=== PATIENT | female | born 1985 | race Caucasian/White ===

== ENCOUNTER 2018-03-04 08:15 | Emergency (ER) | payer OTHER, SELFPAY ==
[2018-03-04 08:15] VITALS: BP 140/77; PULSE 104; RESP 18; TEMP 36.6; O2SAT 98; BMI 37.4
--- NOTE | 2018-03-04 08:15 | DT_ITS ---
This patient was seen during an EMR downtime February 25, 2018 - March 04, 2018. This patient may have a combination of paper and electronic documentation or all paper documentation. All documentation is viewable within the e-chart portion of [employer] for each patient visit.
--- NOTE | 2018-03-04 08:31 | CT_ITS ---
STUDY: CT ABDOMEN AND PELVIS WITH CONTRAST REASON FOR EXAM: Female, 32 years old. N/V/D. RADIATION DOSAGE (If Supplied By Facility): CTDIvol = ( 14.86 ) mGy, DLP = ( 1039.11 ) mGycm TECHNIQUE: Transaxial images were obtained from the dome of the diaphragm to the symphysis pubis with oral contrast. 100 ml of Isovue 300 contrast was administered. Sagittal and coronal images were reconstructed. Individualized dose optimization techniques were used for this CT. COMPARISON: July 05, 2016 FINDINGS: The visualized lung bases are unremarkable. The visualized portions of the heart are within normal limits. There is decreased attenuation of the liver consistent with steatosis. Normal gallbladder and extrahepatic biliary system. Normal spleen. Normal pancreas. Normal bilateral adrenal glands. There are 2 calcifications at the inferior pole of the right kidney measuring up to 2 mm. There is no hydronephrosis. Normal left kidney. Normal visualized stomach. Normal small intestine. Normal colon. The appendix is visualized and appears normal. Normal abdominal aorta. Normal inferior vena cava. Normal retroperitoneum. Normal urinary bladder. Normal abdominal wall. Normal osseous structures. CT/Abdomen/Pelvis WITH Contrast IMPRESSION: Small nonobstructing renal stones on the right. Electronically Signed: Cristobal Car MD at 10:47 EDT Tel , Service support ,
--- NOTE | 2018-03-04 08:32 | ED.VISSUMM ---
- ER Visit Summary Date of Service: 03/04/18 Chief Complaint: Abdominal pain History of Present Illness: The patient is a 32 F who presents for abdominal pain with associated vomiting and diarrhea. Onset was while patient was sleeping during the night. She woke up with abdominal discomfort diffusely, vomited and had one large watery bowel movement. Patient has had diffuse abdominal discomfort since then, now radiating into the right lower quadrant. Patient states when the episode began she was diaphoretic and now has had chills and sweats. She has had similar symptoms in the past except no right lower quadrant pain associated with it. Patient denies any urinary symptoms. Denies . No chest pain or shortness of breath. No history of abdominal surgeries. Medical history remarkable for chronic hives and hypertension. Physical Examination: Vital signs: afebrile, hemodynamically stable, no hypoxia on room air General: well nourished, well developed, in no distress Skin: warm, dry, no rash, no pallor HEENT: normocephalic and atraumatic; PERRL, EOMI, moist mucous membranes Cardiovascular: Tachycardic rate and regular rhythm without murmurs, no peripheral edema, 2+ pulses all distal extremities Respiratory: No increased work of breathing, lungs are clear to auscultation bilaterally, no rales, rhonchi or wheezing Abdominal: Abdomen is soft, diffusely tender, especially in McBurney's point, right lower quadrant and epigastrium; with normoactive bowel sounds, no guarding or rebound, no masses MSK: Moves all extremities, no deformities, normal strength Neuro: Awake and alert, oriented ?4. No facial droop, sensation and motor function intact and symmetric Test Results: Abnormal Lab Results 03/04/18 03/04/18 03/04/18 08:50 08:50 09:00 WBC 13.2 H RBC 4.91 Hgb 13.5 Hct 40.5 MCV 82.5 MCH 27.5 MCHC 33.3 RDW 13.0 RDW Differential 39.4 Plt Count 347 MPV 9.5 Immature Gran % (Auto) 0.200 Neut % (Auto) 80.8 H Lymph % (Auto) 14.8 L [place] % (Auto) 4.0 Eos % (Auto) 0.1 Baso % (Auto) 0.1 Absolute Neuts (auto) 10.7 H Absolute Lymphs (auto) 1.94 Total Counted Not Reportable Sodium 141 Potassium 4.1 Chloride 104 Carbon Dioxide 28.0 Anion Gap 9 BUN 17 Creatinine 0.81 Est GFR (MDRD) Af Amer 104 Est GFR (MDRD) Non-Af 86 BUN/Creatinine Ratio 21.0 H Glucose 97 Calcium 9.0 Total Bilirubin 0.40 AST 13 L ALT 21 Alkaline Phosphatase 54 Total Protein 7.7 Albumin 3.7 Globulin 4.0 Albumin/Globulin Ratio 0.9 Lipase 103 Urine Color Urine Clarity Urine pH Ur Specific [place] Urine Protein Urine Glucose (UA) Urine Ketones Urine Occult Blood Urine Nitrite Urine Bilirubin Urine Urobilinogen Ur Leukocyte Esterase Urine RBC Urine WBC Ur Squamous Epith Cells Urine Bacteria Urine Mucus Urine Test Negative 03/04/18 09:00 WBC RBC Hgb Hct MCV MCH MCHC RDW RDW Differential Plt Count MPV Immature Gran % (Auto) Neut % (Auto) Lymph % (Auto) [place] % (Auto) Eos % (Auto) Baso % (Auto) Absolute Neuts (auto) Absolute Lymphs (auto) Total Counted Sodium Potassium Chloride Carbon Dioxide Anion Gap BUN Creatinine Est GFR (MDRD) Af Amer Est GFR (MDRD) Non-Af BUN/Creatinine Ratio Glucose Calcium Total Bilirubin AST ALT Alkaline Phosphatase Total Protein Albumin Globulin Albumin/Globulin Ratio Lipase Urine Color Yellow Urine Clarity Sl. Cloudy Urine pH 5.0 Ur Specific [place] 1.015 Urine Protein Negative Urine Glucose (UA) Normal Urine Ketones Negative Urine Occult Blood 10 H Urine Nitrite Negative Urine Bilirubin Negative Urine Urobilinogen Normal Ur Leukocyte Esterase Negative Urine RBC 0-5 SEEN Urine WBC 0 SEEN Ur Squamous Epith Cells 0-5 SEEN Urine Bacteria 1+ Urine Mucus 0 SEEN Urine Test Clinical Impression(s) from Imaging Studies Abdomen/Pelvis CT 03/04/18 08:31 IMPRESSION: Small nonobstructing renal stones on the right. Electronically Signed: Cristobal Car MD at 10:47 EDT Tel , Service support , Emergency Department Course and Treatment: Patient was offered and declined antiemetics or pain medications. She has had episodes of abdominal pain with nausea and diarrhea before, but she is never had right lower quadrant pain with it. Because she does have the right lower quadrant and McBurney's tenderness, CT of the abdomen and pelvis was performed. Labs showed mild leukocytosis of 13.2, which may be the marginalization secondary to vomiting. negative. No other derangements. Urine negative for infection or blood. CT scan showed no appendicitis, diverticulitis, or other acute process to explain her symptoms. Patient received IV fluids and stated she felt better after the fluids. She again declined any pain or antiemetic medications. She has an appointment this afternoon with her IMMIGRATION MANAGER and will keep this appointment. She was given return precautions. Discharged home in improved condition. Treatment Plan: [] Disposition: [] Impression: Nonspecific abdominal pain, nausea vomiting and diarrheal illness This note was generated with [employer] dictation software. It may contain incorrect words, spelling, and punctuation that were not noted in review of the chart prior to signing ED Disposition - Plan for ED Patient: Disposition: Home or Assisted Living Chief Complaint: Nausea/Vomiting/Diarrhea Instructions: ED Vomiting Diarrhea Nonspecific Ad Referrals: Guille Pavon III, MD [Primary Care Provider] - 3-5 Days if not improving Additional Instructions: Please drink plenty of fluids to stay hydrated. Keep your appointment with your IMMIGRATION MANAGER this afternoon as scheduled. Follow-up with your doctor to discuss whether your chronic hives could be related to your recurrent stomach issues. If you have any worsening of your condition or any new concerning symptoms, please return immediately to the emergency department for another evaluation.
--- NOTE | 2018-03-04 08:35 | ED.DCSUM_ITS ---
- ER Visit Summary Date of Service: 03/04/18 Chief Complaint: Abdominal pain History of Present Illness: The patient is a 32 F who presents for abdominal pain with associated vomiting and diarrhea. Onset was while patient was sleeping during the night. She woke up with abdominal discomfort diffusely, vomited and had one large watery bowel movement. Patient has had diffuse abdominal discomfort since then, now radiating into the right lower quadrant. Patient states when the episode began she was diaphoretic and now has had chills and sweats. She has had similar symptoms in the past except no right lower quadrant pain associated with it. Patient denies any urinary symptoms. Denies . No chest pain or shortness of breath. No history of abdominal surgeries. Medical history remarkable for chronic hives and hypertension. Physical Examination: Vital signs: afebrile, hemodynamically stable, no hypoxia on room air General: well nourished, well developed, in no distress Skin: warm, dry, no rash, no pallor HEENT: normocephalic and atraumatic; PERRL, EOMI, moist mucous membranes Cardiovascular: Tachycardic rate and regular rhythm without murmurs, no peripheral edema, 2+ pulses all distal extremities Respiratory: No increased work of breathing, lungs are clear to auscultation bilaterally, no rales, rhonchi or wheezing Abdominal: Abdomen is soft, diffusely tender, especially in McBurney's point, right lower quadrant and epigastrium; with normoactive bowel sounds, no guarding or rebound, no masses MSK: Moves all extremities, no deformities, normal strength Neuro: Awake and alert, oriented ?4. No facial droop, sensation and motor function intact and symmetric Test Results: Abnormal Lab Results 03/04/18 03/04/18 03/04/18 08:50 08:50 09:00 WBC 13.2 H RBC 4.91 Hgb 13.5 Hct 40.5 MCV 82.5 MCH 27.5 MCHC 33.3 RDW 13.0 RDW Differential 39.4 Plt Count 347 MPV 9.5 Immature Gran % (Auto) 0.200 Neut % (Auto) 80.8 H Lymph % (Auto) 14.8 L [place] % (Auto) 4.0 Eos % (Auto) 0.1 Baso % (Auto) 0.1 Absolute Neuts (auto) 10.7 H Absolute Lymphs (auto) 1.94 Total Counted Not Reportable Sodium 141 Potassium 4.1 Chloride 104 Carbon Dioxide 28.0 Anion Gap 9 BUN 17 Creatinine 0.81 Est GFR (MDRD) Af Amer 104 Est GFR (MDRD) Non-Af 86 BUN/Creatinine Ratio 21.0 H Glucose 97 Calcium 9.0 Total Bilirubin 0.40 AST 13 L ALT 21 Alkaline Phosphatase 54 Total Protein 7.7 Albumin 3.7 Globulin 4.0 Albumin/Globulin Ratio 0.9 Lipase 103 Urine Color Urine Clarity Urine pH Ur Specific [place] Urine Protein Urine Glucose (UA) Urine Ketones Urine Occult Blood Urine Nitrite Urine Bilirubin Urine Urobilinogen Ur Leukocyte Esterase Urine RBC Urine WBC Ur Squamous Epith Cells Urine Bacteria Urine Mucus Urine Test Negative 03/04/18 09:00 WBC RBC Hgb Hct MCV MCH MCHC RDW RDW Differential Plt Count MPV Immature Gran % (Auto) Neut % (Auto) Lymph % (Auto) [place] % (Auto) Eos % (Auto) Baso % (Auto) Absolute Neuts (auto) Absolute Lymphs (auto) Total Counted Sodium Potassium Chloride Carbon Dioxide Anion Gap BUN Creatinine Est GFR (MDRD) Af Amer Est GFR (MDRD) Non-Af BUN/Creatinine Ratio Glucose Calcium Total Bilirubin AST ALT Alkaline Phosphatase Total Protein Albumin Globulin Albumin/Globulin Ratio Lipase Urine Color Yellow Urine Clarity Sl. Cloudy Urine pH 5.0 Ur Specific [place] 1.015 Urine Protein Negative Urine Glucose (UA) Normal Urine Ketones Negative Urine Occult Blood 10 H Urine Nitrite Negative Urine Bilirubin Negative Urine Urobilinogen Normal Ur Leukocyte Esterase Negative Urine RBC 0-5 SEEN Urine WBC 0 SEEN Ur Squamous Epith Cells 0-5 SEEN Urine Bacteria 1+ Urine Mucus 0 SEEN Urine Test Clinical Impression(s) from Imaging Studies Abdomen/Pelvis CT 03/04/18 08:31 IMPRESSION: Small nonobstructing renal stones on the right. Electronically Signed: Cristobal Car MD at 10:47 EDT Tel , Service support , Emergency Department Course and Treatment: Patient was offered and declined antiemetics or pain medications. She has had episodes of abdominal pain with nausea and diarrhea before, but she is never had right lower quadrant pain with it. Because she does have the right lower quadrant and McBurney's tenderness, CT of the abdomen and pelvis was performed. Labs showed mild leukocytosis of 13.2, which may be the marginalization secondary to vomiting. negative. No other derangements. Urine negative for infection or blood. CT scan showed no appendicitis, diverticulitis, or other acute process to explain her symptoms. Patient received IV fluids and stated she felt better after the fluids. She again declined any pain or antiemetic medications. She has an appointment this afternoon with her SCENIC ARTS SUPERVISOR and will keep this appointment. She was given return precautions. Discharged home in improved condition. Treatment Plan: [] Disposition: [] Impression: Nonspecific abdominal pain, nausea vomiting and diarrheal illness This note was generated with [employer] dictation software. It may contain incorrect words, spelling, and punctuation that were not noted in review of the chart prior to signing ED Disposition - Plan for ED Patient: Disposition: Home or Assisted Living Chief Complaint: Nausea/Vomiting/Diarrhea Instructions: ED Vomiting Diarrhea Nonspecific Ad Referrals: Guille Pavon III, MD [Primary Care Provider] - 3-5 Days if not improving Additional Instructions: Please drink plenty of fluids to stay hydrated. Keep your appointment with your SCENIC ARTS SUPERVISOR this afternoon as scheduled. Follow-up with your doctor to discuss whether your chronic hives could be related to your recurrent stomach issues. If you have any worsening of your condition or any new concerning symptoms, please return immediately to the emergency department for another evaluation.
[2018-03-04 09:00] LABS: Absolute Lymphocyte Count 1.94 X10^3/ul (0.83-4.51); Absolute Neutrophil Count 10.7 X10^3/uL (2.0-7.7); Basophil# 0.01 X10^3/uL; Basophil% 0.1 % (0-1); Eosinophil# 0.01 X10^3/uL; Eosinophils% 0.1 % (0-5); Hematocrit 40.5 % (37-47); Hemoglobin 13.5 g/dl (12.0-15.0); Lymphocyte # 1.94 X10^3/ul (4.0); Lymphocyte % 14.8 % (19-41); Mean Corp Hgb Conc 33.3 g/gl (32-36); Mean Corpuscular Hgb 27.5 pg (27.0-32.0); Mean Corpuscular Volume 82.5 fL (81-99); Mean Platelet Vol. 9.5 fl (6.2-12.0); Monocyte# 0.52 X10^3/uL; Neutrophil # 10.65 X10^3/uL (2.7-7.7); Neutrophil % 80.8 % (47-70); Platelet Count 347 K/mm3 (150-450); RBC Distribution Width SD 39.4 fl (35.1-43.9); Red Blood Count 4.91 M/mm3 (4.2-5.4); White Blood Count 13.2 K/mm3 (4.4-11.0)
[2018-03-04] MEDS: 0.9% Normal Saline 1,000 ML 1000 ML IV (09:01)
[2018-03-04 09:03] LABS: POSITIVE COUNT NO; POSITIVE DIFFERENTIAL NO; POSITIVE MORPHOLOGY NO
[2018-03-04 09:06] LABS: Mucous, Urine 0 SEEN /hpf (<or=2+); White Blood Cells 0 SEEN /hpf (0-5)
[2018-03-04 09:15] LABS: Internal QC Validated? YES +Cl - CLEAR BKGD; Pregnancy, Urine Negative Negative
[2018-03-04 09:16] LABS: ALB/GLOB Ratio 0.9 RATIO (0.9-2.4); AST(SGOT) 13 U/L (15-37); Alanine Aminotransfer ALT/SGPT 21 U/L (13-56); Albumin, Serum 3.7 g/dL (3.2-5.0); Alkaline Phosphatase 54 U/L (45-117); Anion Gap 9 (5-15); BUN 17 mg/dL (7-18); Chloride 104 mmol/L (98-107); Creatinine, Serum 0.81 mg/dL (0.55-1.02); EST Glomerular Filtration Rate 86 mL/min (>60); Est Glom Filt Rate - Afr Amer 104 mL/min (>60); Glucose 97 mg/dL (74-106); Lipase 103 U/L (73-393); Potassium 4.1 mmol/L (3.5-5.1); Protein, Total 7.7 g/dL (6.4-8.2); Sodium Level 141 mmol/L (136-145)
[2018-03-04 09:22] LABS: Color, Urine Yellow (Yellow); Glucose, Dipstick Normal (Normal); Ketone-Dipstick Negative (Negative); Leukocyte Esterase-Dipstick Negative /ul (Negative); Nitrite-Dipstick Negative (Negative); Occult Blood-Urine 10 /ul (Negative); Protein-Dipstick Negative (Negative); Specific Gravity, Urine 1.015 (1.002-1.030); Urine Bilirubin Dipstick Negative (Negative); Urine Clarity Sl. Cloudy (Clear); Urine Urobilinogen Normal (Normal)
[2018-03-04 09:29] LABS: Bacteria 1+ /hpf (None Seen); Red Blood Cells-Urine 0-5 SEEN /hpf (0-5); Squamous Epithelial Cells - UA 0-5 SEEN /hpf (5-10)
--- NOTE | 2018-03-04 11:00 | DCINST.ED_ITS ---
ED Disposition - Plan for ED Patient: Disposition: Home or Assisted Living Chief Complaint: Nausea/Vomiting/Diarrhea Instructions: ED Vomiting Diarrhea Nonspecific Ad Referrals: Guille Pavon III, MD [Primary Care Provider] - 3-5 Days if not improving Additional Instructions: Please drink plenty of fluids to stay hydrated. Keep your appointment with your VP BIOLOGY this afternoon as scheduled. Follow-up with your doctor to discuss whether your chronic hives could be related to your recurrent stomach issues. If you have any worsening of your condition or any new concerning symptoms, please return immediately to the emergency department for another evaluation.
[2018-03-04 11:23] VITALS: BP 128/74; PULSE 61; RESP 15; O2SAT 98
== END 2018-03-04 11:24 | disposition home or self-care (01) ==
PROVIDERS: Emergency Provider Emergency Medicine; Family Provider Family Medicine; PCP Family Medicine
DX: R10.9 Unspecified abdominal pain (principal); R11.2 Nausea with vomiting, unspecified; R19.7 Diarrhea, unspecified; I10 Essential (primary) hypertension; L50.8 Other urticaria; Z79.899 Other long term (current) drug therapy
CPT/HCPCS: 74177; 80053; 81001; 81025; 83690; 85025; 96360; 96361; 99283; J7030; Q9967; A4216

== ENCOUNTER → 2018-03-04 19:11 | Outpatient (CLI) | payer OTHER, SELFPAY ==
--- NOTE | 2018-03-04 19:11 | DT_ITS ---
This patient was seen during an EMR downtime February 25, 2018 - March 04, 2018. This patient may have a combination of paper and electronic documentation or all paper documentation. All documentation is viewable within the e-chart portion of [employer] for each patient visit.
[2018-03-12 15:03] LABS: HPV Reflexed? NOT INDICATED
== END ==
PROVIDERS: Family Provider Family Medicine; PCP Family Medicine; Visit Provider Obstetrics & Gynecology
DX: Z12.4 Encounter for screening for malignant neoplasm of cervix (principal)
CPT/HCPCS: 88175; G0145

== ENCOUNTER 2019-03-30 14:39 | Observation (INO) | payer OTHER, SELFPAY ==
[2019-03-30 14:39] VITALS: BP 150/65; PULSE 136; RESP 23; TEMP 36.6; O2SAT 99; BMI 37.5
--- NOTE | 2019-03-30 15:16 | ED.DCSUM_ITS ---
History of Present Illness Chief Complaint: Back Detail of Chief Complaint: Back pain Informant: Patient, Family Onset: - - 9 weeks ago Quality: Sharp and stabbing Location: Left lower back Current Severity: Severe Maximum Severity: Severe Worsened by: Movement Narrative: Patient presents with 9-week history of pain to the left lower back and sciatic area. She denies any known injury at the onset. Pain does shoot down the left leg. It is worse with movement. She has been in physical therapy for the past 6 weeks. She was seen at urgent care last week where she was given a prednisone taper and Flexeril. Her PCP saw her this week and gave her gabapentin. Patient states she scheduled to have an MRI this coming week. She presents today due to continued worsening pain. She denies urinary symptoms. - Past Medical History (1) Hypertension Status: Chronic Past Medical History - Allergies and Home Meds Allergies/Adverse Reactions: Allergies clindamycin Allergy (Verified 03/30/19 14:43) Hives ketorolac [From Toradol] Adverse Reaction (Verified 03/30/19 14:43) Hives ondansetron [From Zofran (as hydrochloride)] Adverse Reaction (Verified 03/30/19 14:43) Hives Primary Care Physician: Guille Pavon III, MD [Primary Care Provider] - Prior records reviewed: Yes Past Medical History: - - Reviewed Lives: Spouse/ Significant Other Smoking Status: Former smoker Review of Systems General: Denies: Chills, Fever Cardiovascular: Denies: Chest pain Respiratory: Denies: Dyspnea, Cough Gastrointestinal: Denies: Abdominal pain, Nausea, Vomiting, Diarrhea Genitourinary: Denies: Dysuria, Hematuria, Frequency Musculoskeletal: Reports: Back pain, Extremity Pain Neurological: Reports: Parasthesia. Denies: Headache, Weakness Physical Exam Vital Signs/Narrative: Vital Signs Temp Pulse Resp BP Pulse Ox 03/30/19 14:39 97.9 F 136 H 23 H 150/65 H 99 Inital Vital Signs reviewed: Yes General: Well nourished, Well developed ENT: Moist mucous membranes Cardiovascular: Tachycardia Respiratory: No distress, CTA bilaterally Abdomen: Soft, Nontender. Negative for: Pulsatile mass Back: - - Tenderness palpation over the left SI joint and left sciatic notch. No tenderness in the lumbar region. Skin: Normal color, No rash Neurological: Alert, Oriented x3, - - Patient has good strength and sensation on testing. Strong distal pulses are noted. Psychological: - - Anxious Diagnostic/Tx/Re-eval - Medical Decision Making Patient is gotten 2 doses of Dilaudid along with p.o. oxycodone. At this time she is still unable to get up and ambulate. We will admit her for intractable pain. ED Disposition - Plan for ED Patient: Disposition: Acute Care [facility] Diagnosis: Sciatica Referrals: Guille Pavon III, MD [Primary Care Provider] -
[2019-03-30] MEDS: proMETHazine 25 MG/ML Syringe 6.25 MG IV (15:46)
[2019-03-30] MEDS: 0.9% Normal Saline 1,000 ML 150 ML IV (15:46)
[2019-03-30] MEDS: HYDROmorphone 1 MG/ML Syringe 0.5 MG IV (15:47)
[2019-03-30] MEDS: HYDROmorphone 0.5 MG/0.5 ML SYRINGE IV (16:33)
[2019-03-30 16:34] VITALS: BP 130/77; PULSE 72; RESP 18; O2SAT 97
[2019-03-30 18:00] VITALS: RESP 20
[2019-03-30] MEDS: oxyCODONE 5 MG Tablet 10 MG PO ×2 (18:17→23:51)
--- NOTE | 2019-03-30 20:47 | PCM.HP.STD ---
Problem List (1) Intractable low back pain Status: Acute (2) Abdominal pain Status: Resolved History of Present Illness Date of Admission: 03/30/19 Chief Complaint: back pain The patient is a 33 year old F with a significant history of hypertension who presented to the emergency department with 9 weeks of progressively worsening excruciating lower back pain. Her pain is located to upper side of her left buttocks close to her gluteal cleft. It radiates upwards to her lower spine and to to her left lower extremities. The pain is sharp. However she has numbness to her left toes. She went to see a chiropractor but later on stopped and began to work with physical therapy. Her PCP prescribed prednisone and Flexeril and later added gabapentin. Outpatient MRI was scheduled. However because patient continued to have excruciating pain so she came to emergency department. At the ED, patient was given oxycodone and Dilaudid however she continued to have pain. She denies any bowel symptoms. She reports mild decrease in urinary frequency that she attributes to her not drinking enough fluids. Past Medical History Past Medical History (Chronic Problems): Chronic Problems Hypertension (Chronic) Allergies clindamycin Allergy (Verified 03/30/19 14:43) Hives ketorolac [From Toradol] Adverse Reaction (Verified 03/30/19 14:43) Hives ondansetron [From Zofran (as hydrochloride)] Adverse Reaction (Verified 03/30/19 14:43) Hives Home Medications: Ambulatory Orders Medication Instructions Recorded Lisinopril [Zestril] 5 mg PO DAILY 07/05/16 Flexeril 5 mg PO TID PRN PRN 03/30/19 Gabapentin [Neurontin] 100 mg PO BID 03/30/19 Prednisone 10 mg PO DAILY 03/30/19 Surgical History: tonsillectomy, - - D&C; mole removal from around her ears. Lives: Spouse/ Significant Other Smoking Status: Never smoker Alcohol: None - *Family History Paternal History Items: Heart Disease Maternal History Items: - - Patient did not know Review of Systems Constitutional: Reports: Anorexia. Denies: Chills, Fever, Weight Change HEENT: Denies: Head Aches, Sinus Congestion, Sinus Drainage Cardiovascular: Denies: Chest Pain, Palpitations Respiratory: Denies: Cough, Shortness of breath at rest, Sputum production Gastrointestinal: Denies: Abdominal Pain, Nausea, Vomiting Genitourinary: Denies: Dysuria Musculoskeletal: Reports: Back Pain, Leg Pain - Left Skin: Denies: Rash, Wounds Neurological: Denies: Numbness, Tingling, Focal weakness Psychiatric: Denies: Anxiety, Depression, Homicidal Ideations, Suicidal Ideations Hematologic/ Lymphatic: Denies: Easy Bruising, Easy Bleeding VTE Information - Inpt Only VTE Present on Admission: No VTE Mechan Device Prophylaxis: None VTE Pharm Prophylaxis ordered?: Yes Patient Problems: Active and Suspected Problems Sciatica (Acute) Intractable low back pain (Acute) - Physical Exam General: Alert, Oriented x3, Cooperative, - - Patient in acute distress secondary to pain HEENT: Atraumatic, PERRLA, EOMI, Normocephalic Neck: Supple, No JVD, Negative Carotid Bruits Lungs: Clear to auscultation, Normal air movement, Tachypneic Cardiovascular: Regular rate, No murmurs Abdomen: Bowel Sounds Present, Soft, Non Tender Extremities: No edema, Tenderness - Left gluteal area Skin: No rashes, No breakdown Musculoskeletal: - - Straight line test positive to the left; negative to the right Neurological: Cranial nerves II-XII grossly intact Psych/Mental Status: Normal Affect, Appropriate Vital Signs Temp Pulse Resp BP Pulse Ox 97.9 F 72 18 130/77 H 97 03/30/19 14:39 03/30/19 16:34 03/30/19 16:34 03/30/19 16:34 03/30/19 16:34 Oxygen Delivery Method Room Air Weight: 102.512 kg Body Mass Index (BMI) 37.5 Assessment/Plan All Active Problems Sciatica (Acute) Intractable low back pain (Acute) Abdominal pain (Resolved) The patient is a 33 year old F with a significant history of hypertension who presented to the emergency department with 9 weeks of progressively worsening excruciating lower back pain radiating to her left lower extremities concerning for intractable lower back pain with sciatica. Intractable lower back pain with sciatica Pain control with Decadron 20 mg IV x1. Then schedule Decadron 4 mg every 6 hours. PRN oxycodone and IV Dilaudid as needed ordered Continue home Flexeril; and gabapentin. Hold home prednisone. Patient is allergic to Zofran. Antiemetics with Compazine ordered. Bowel protocol in the setting of initiating narcotics. Will get MRI of her lumbar area. Hypertension On presentation her blood pressure was not within goal Lisinopril continued Trend blood pressure and adjust blood pressure medication. DVT prophylaxis Subcutaneous Lovenox Code Visit OBSV E&M: 74211 Initial observation care L3
[2019-03-30 20:54] VITALS: RESP 22
--- NOTE | 2019-03-30 21:08 | ED.RN ---
DR PADILLA MADE AWARE OF PT'S REQUEST FOR PAIN MEDICATIONS
[2019-03-30 22:09] VITALS: BMI 38.3; BMI 38.4
[2019-03-30 22:33] VITALS: BP 129/74; PULSE 82; RESP 18; TEMP 36.2; O2SAT 97
[2019-03-30] MEDS: HYDROmorphone 1 MG/ML Syringe IV (22:41)
[2019-03-30] MEDS: dexAMETHasone 20 MG/5 ML Vial IV (23:23)
[2019-03-30 23:35] LABS: Hematocrit 38.7 % (37-47); Mean Corp Hgb Conc 33.6 g/gl (32-36); Mean Corpuscular Hgb 27.8 pg (27.0-32.0); Mean Corpuscular Volume 82.7 fL (81-99); Mean Platelet Vol. 9.2 fl (6.2-12.0); Platelet Count 382 K/mm3 (150-450); RBC Distribution Width CV 13.6 % (11.6-14.6); Red Blood Count 4.68 M/mm3 (4.2-5.4); White Blood Count 14.5 K/mm3 (4.4-11.0)
[2019-03-30 23:39] LABS: Scan Indicated on CBC? Y/N NO
[2019-03-31 00:02] LABS: Anion Gap 9 (5-15); BUN 14 mg/dL (7-18); BUN/Creat Ratio 20.7 RATIO (10-20); Calcium,Total 8.6 mg/dL (8.5-10.1); Chloride 105 mmol/L (98-107); Creatinine, Serum 0.68 mg/dL (0.55-1.02); EST Glomerular Filtration Rate 106 mL/min (>60); Est Glom Filt Rate - Afr Amer 128 mL/min (>60); Glucose 95 mg/dL (74-106); Potassium 3.5 mmol/L (3.5-5.1); Sodium Level 142 mmol/L (136-145)
[2019-03-31 03:37] VITALS: BP 129/85; PULSE 84; RESP 18; TEMP 36.2; O2SAT 97
[2019-03-31] MEDS: 0.9% NaCl Peripheral Flush Adult/Peds IV ×4 (03:39→11:55)
[2019-03-31] MEDS: HYDROmorphone 1 MG/ML Syringe IV ×5 (03:39→20:17)
[2019-03-31] MEDS: dexAMETHasone 4 MG/ML Vial IV ×3 (06:14→18:42)
[2019-03-31 08:00] VITALS: BP 126/82; PULSE 83; RESP 18; TEMP 36.6; O2SAT 96
--- NOTE | 2019-03-31 08:00 | MRI_ITS ---
STUDY: MRI LUMBAR SPINE WITHOUT CONTRAST REASON FOR EXAM: Female, 33 years old. Left-sided low back pain. Leg pain and numbness. TECHNIQUE: Standardized fat and water weighted pulse sequences were obtained in the sagittal and axial planes. COMPARISON: None. FINDINGS: T12-L1: Normal endplates. Normal disc height, hydration and morphology. Normal bilateral facet joints. Normal central canal and bilateral lateral recesses. Normal bilateral intervertebral neural foramina. Lumbar straightening. No significant scoliosis. Conus medullaris terminates normally at the L2 level. L1-2: Normal endplates. Normal disc height, hydration and morphology. Normal bilateral facet joints. Normal central canal and bilateral lateral recesses. Normal bilateral intervertebral neural foramina. L2-3: Normal endplates. Normal disc height, hydration and morphology. Normal bilateral facet joints. Normal central canal and bilateral lateral recesses. Normal bilateral intervertebral neural foramina. L3-4: Normal endplates. Normal disc height, hydration and morphology. Normal bilateral facet joints. Normal central canal and bilateral lateral recesses. Normal bilateral intervertebral neural foramina. L4-5: Normal endplates. Left paracentral caudal disc extrusion (sagittal image 5 series 2) with extruded disc material measuring approximately 17 mm x 17 mm x 6 mm. Mild central canal narrowing. Bilateral lateral recess narrowing with impingement on the left. Normal bilateral facet joints. Normal central canal and bilateral lateral recesses. Normal bilateral intervertebral neural foramina. L5-S1: Normal endplates. Disc bulge, annular fissure and minimal caudal extension, with mild central narrowing. Normal bilateral facet joints. Normal bilateral lateral recesses. Normal bilateral intervertebral neural foramina. Normal visualized sacral ala. Normal visualized paraspinous soft tissue structures. MRI/Spine Lumbar (Routine) IMPRESSION: L4-5 large left paracentral caudal disc extrusion with mild central canal narrowing L5-S1 disc bulge, annular fissure and minimal caudal extension with mild central canal narrowing L4-5 bilateral lateral recess narrowing with impingement of the left descending L5 nerve root Lumbar straightening Electronically Signed: Jose M Winters DO at 9:06 EDT Tel , Service support ,
--- NOTE | 2019-03-31 08:08 | NURSING ---
pt transported down to MRI via bed at this time. medicated for pain prior to test.
[2019-03-31] MEDS: Senna/Docusate Sodium 1 Tablet 2 TABLET PO (10:08)
[2019-03-31] MEDS: Lisinopril 5 MG Tablet PO (10:08)
[2019-03-31] MEDS: Gabapentin 100 MG Capsule PO ×2 (10:08→17:09)
[2019-03-31] MEDS: cycloBENZAPRine HCl 5 MG TABLET PO (12:34)
[2019-03-31] MEDS: oxyCODONE 5 MG Tablet 10 MG PO (12:34)
[2019-03-31 13:20] VITALS: BP 129/79; PULSE 80; RESP 16; TEMP 36.7; O2SAT 98
--- NOTE | 2019-03-31 13:37 | EKG12_ITS ---
Test Reason : CP ROUTINE Blood Pressure : / mmHG Vent. Rate : 078 BPM Atrial Rate : 078 BPM P-R Int : 140 ms QRS Dur : 070 ms QT Int : 382 ms P-R-T Axes : 047 042 026 degrees QTc Int : 435 ms Normal sinus rhythm Normal ECG When compared with ECG of 02-JUL-2015 17:16, No significant change was found Confirmed by CHANCE STAFFORD, JUNE ([id number]), assistant film editor ABRAM DELANEY ([id number]) on 04/01/2019 2:08:49 PM Referred By: Pranay Platt Confirmed By:JUNE FLETCHER MD
[2019-03-31 16:08] LABS: Internal QC Validated? YES +Cl - CLEAR BKGD; Pregnancy, Urine Negative Negative
[2019-03-31 17:00] VITALS: BP 125/74; PULSE 80; RESP 18; TEMP 36.8; O2SAT 97
[2019-03-31] MEDS: Acetaminophen 325 MG Tablet 650 MG PO (17:09)
--- NOTE | 2019-03-31 18:02 | PCM.PROGNOTE ---
Patient Problems: Active and Suspected Problems Sciatica (Acute) Intractable low back pain (Acute) Subjective: Patient was seen and examined today, she still having pain down the back of her left leg and in her left buttocks and left SI joint area. Patient does not complain of any weakness, she states that when she tries to stand on her left leg it hurts too much and she is unable to stand or walk. Patient's MRI showed an L4-L5 large left paracentral caudal disc extrusion with mild central canal narrowing, I talked her about this today and I called pain management to see if they would see the patient for a possible epidural injection-they will see the patient and probably do this injection tomorrow. Patient had an episode of chest discomfort which she described as pressure-like in nature centered in the precordial region radiating into the mid back today which lasted approximately 5 minutes, patient has no history of any cardiac issues in the past, EKG was performed that showed a normal sinus rhythm without evidence of ischemic changes. - Physical Exam General: Alert, Oriented x3, Cooperative HEENT: Atraumatic, PERRLA, EOMI, Normocephalic Oral: Moist Mucosa Neck: Supple, No JVD, Negative Carotid Bruits, Trachea Midline, Thyroid Normal Size and Texture Lungs: Clear to auscultation, Normal air movement, No rhonchi, No wheeze, No rales, Diminished, Rales Cardiovascular: Regular rate, Regular Rhythm, Normal S1, Normal S2, No murmurs, No Ectopic Activity Abdomen: Bowel Sounds Present, Soft, Non Tender, Non-Distended, No hernias noted Extremities: No clubbing, No cyanosis, No edema, Capillary Refill Less than 3 Seconds Skin: No rashes, No breakdown Musculoskeletal: No Tenderness to Palpation of Joints or Extremities Neurological: Cranial nerves II-XII grossly intact, Neuro grossly intact, Motor Exam 5/5 strength throughout, Sensory exam intact to light touch and pain, Coordination normal Psych/Mental Status: Normal Affect, Appropriate, Alert and oriented to time, place, person, mood and affect Vital Signs Temp Pulse Resp BP Pulse Ox 98.2 F 80 18 125/74 H 97 03/31/19 17:00 03/31/19 17:00 03/31/19 17:00 03/31/19 17:00 03/31/19 17:00 Oxygen Delivery Method Room Air Weight: 104.6 kg Body Mass Index (BMI) 38.3 Intake and Output for Last 24 Hours 03/29/19 03/30/19 03/31/19 23:59 23:59 23:59 Intake Total 490 / 490 Balance 490 / 490 Laboratory Tests Past 24 Hrs 03/30/19 03/30/19 03/31/19 22:08 22:08 15:30 WBC 14.5 H RBC 4.68 Hgb 13.0 Hct 38.7 MCV 82.7 MCH 27.8 MCHC 33.6 RDW 13.6 RDW Differential 41.0 Plt Count 382 MPV 9.2 Sodium 142 Potassium 3.5 Chloride 105 Carbon Dioxide 28.0 Anion Gap 9 BUN 14 Creatinine 0.68 Estim Creat Clear Calc 104.90 Est GFR (MDRD) Af Amer 128 Est GFR (MDRD) Non-Af 106 BUN/Creatinine Ratio 20.7 H Glucose 95 Calcium 8.6 Urine Test Negative Medical Necessity - Tobacco Use Smoking Status: Never smoker Assessment/Plan All Active Problems Sciatica (Acute) Intractable low back pain (Acute) Abdominal pain (Resolved) #1 acute sciatica left leg secondary to L4-L5 left paracentral caudal disc extrusion-patient will remain on IV Decadron and be seen by pain management for possible epidural injection. I do not feel the patient has significant weakness in her leg and I do not believe she needs to be referred out for surgery at this time. #2 hypertension #3 musculoskeletal chest pain Code Visit OBSV E&M: 14587 Subsequent observation care L3
--- NOTE | 2019-03-31 18:45 | NURSING ---
Dr Vasquez on unit speaking with patient. plans for epidural on 04/01 with steroid injection. he requests that pt will follow-up with him in the office in 2 weeks.
[2019-03-31 19:57] VITALS: BP 150/88; PULSE 89; RESP 16; TEMP 37; O2SAT 94
[2019-04-01] VITALS (12 sets, daily range): BP systolic 127–147; BP diastolic 68–140; PULSE 72–91; RESP 16; TEMP 36.4–36.9; O2SAT 94–98; BMI 38.3
[2019-04-01] MEDS: HYDROmorphone 1 MG/ML Syringe IV ×6 (00:18→19:03)
[2019-04-01] MEDS: dexAMETHasone 4 MG/ML Vial IV ×4 (00:19→17:27)
[2019-04-01] MEDS: Acetaminophen 325 MG Tablet 650 MG PO ×2 (02:16→23:14)
[2019-04-01] MEDS: oxyCODONE 5 MG Tablet 10 MG PO ×2 (02:17→23:14)
--- NOTE | 2019-04-01 12:37 | CHAPLAIN ---
Type of Pastoral Visit _x__ Initial Visit ___ Follow-up Visit ___ On-call Visit ___ General Patient Visit ___ Spiritual Assessment ___ Family Conference ___ Bereavement ___ Rapid Response ___ Code Blue ___ Other (describe below) Pastoral Care Referral From _x__ Patient ___ Family ___ Nurse ___ Physician ___ Residential Building Inspector ___ Manufacturer Representative ___ Other (describe below) Sacrament/Intervention _x__ Active listening ___ Anointing ___ Restoration ___ Bereavement ___ Communion ___ Radha exploration ___ ___ Life review _x__ Prayer ___ Reconciliation ___ Sacrament of Sick _x__ Supportive presence ___ Wedding ___ Other (describe below) Pastoral Comments
--- NOTE | 2019-04-01 13:37 | CASEMGMT ---
According to patient insurance [facility] [employer] P[employer], In [facility]: [facility], Nate Allen, [facility], , [facility], [facility], [place], STEFANI, [place]. Bulmaro Gonzalez, TANJACM
--- NOTE | 2019-04-01 13:43 | NURSING ---
report called to ac
--- NOTE | 2019-04-01 14:30 | RAD_ITS ---
STUDY: X-RAY - LUMBAR SPINE REASON FOR EXAM: Female, 33 years old. Low back pain. TECHNIQUE: Single coned-down intraoperative view(s) of the lumbar spine was obtained. COMPARISON: None FINDINGS: Intraoperative imaging provided for epidural block. RAD/Spine 1 View Any Level IMPRESSION: Intraoperative imaging provided for epidural block. Electronically Signed: Shay Short, at 9:31 EDT , Service support ,
[2019-04-01] MEDS: Triamcinolone Acetonide 40 MG/ML Vial (15:44)
[2019-04-01] MEDS: Lisinopril 5 MG Tablet PO (17:00)
[2019-04-01] MEDS: Senna/Docusate Sodium 1 Tablet 2 TABLET PO (17:01)
[2019-04-01] MEDS: Gabapentin 100 MG Capsule PO (17:01)
[2019-04-01] MEDS: 0.9% NaCl Peripheral Flush Adult/Peds IV (17:28)
--- NOTE | 2019-04-01 19:53 | PN_ITS ---
Patient Problems: Active and Suspected Problems Sciatica (Acute) Intractable low back pain (Acute) Subjective: Seen and examined today, she underwent an epidural injection today by pain management, she is having significant pain late this afternoon and was given Dilaudid for pain control. I will reassess the patient's pain tomorrow and if she remains in a great deal of pain from her sciatica, she will have to be transferred to another hospital for surgery. I asked her what hospital she would prefer and she is leaning toward [facility] because of the [facility]. - Physical Exam General: Alert, Oriented x3, Cooperative, Well developed, - - Patient is an moderate distress due to left leg sciatica HEENT: Atraumatic, PERRLA, EOMI, Normocephalic Oral: Moist Mucosa Neck: Supple, Trachea Midline, Thyroid Normal Size and Texture Lungs: Clear to auscultation, Normal air movement, No rhonchi, No wheeze, No rales Cardiovascular: Regular rate, Regular Rhythm, Normal S1, Normal S2, No murmurs Abdomen: Bowel Sounds Present, Soft, Non Tender, Non-Distended, Obese Extremities: No clubbing, No cyanosis, No edema, Capillary Refill Less than 3 Seconds Skin: No rashes, No breakdown Musculoskeletal: No Tenderness to Palpation of Joints or Extremities Neurological: Cranial nerves II-XII grossly intact, Neuro grossly intact, Sensory exam intact to light touch and pain, Coordination normal Psych/Mental Status: Normal Affect, Appropriate, Alert and oriented to time, place, person, mood and affect Vital Signs Temp Pulse Resp BP Pulse Ox 98.2 F 74 16 146/78 H 98 04/01/19 18:54 04/01/19 18:54 04/01/19 18:54 04/01/19 18:54 04/01/19 18:54 Oxygen Delivery Method Room Air Weight: 104.6 kg Body Mass Index (BMI) 38.3 Intake and Output for Last 24 Hours 03/30/19 03/31/19 04/01/19 23:59 23:59 23:59 Intake Total 893 / 1377 1060 / 1060 Balance 893 / 1377 1060 / 1060 Medical Necessity - Tobacco Use Smoking Status: Never smoker Assessment/Plan All Active Problems Sciatica (Acute) Intractable low back pain (Acute) Abdominal pain (Resolved) #1 acute sciatica left leg secondary to L4-L5 left paracentral caudal disc extrusion-status post epidural injection, patient will be reassessed tomorrow for degree of her sciatica. She may need to be transferred to another hospital for further care #2 hypertension #3 musculoskeletal chest pain-resolved Code Visit Inpatient E&M: 02215 Subs Hosp L2
[2019-04-01] MEDS: Gabapentin 300 MG Capsule PO (22:06)
[2019-04-02] MEDS: dexAMETHasone 4 MG/ML Vial IV ×4 (00:18→17:59)
[2019-04-02] MEDS: 0.9% NaCl Peripheral Flush Adult/Peds IV ×6 (00:19→22:43)
[2019-04-02 00:23] VITALS: BP 116/72; PULSE 76; RESP 16; TEMP 37.1; O2SAT 97
[2019-04-02] MEDS: HYDROmorphone 1 MG/ML Syringe IV ×4 (05:03→20:09)
[2019-04-02] MEDS: Gabapentin 300 MG Capsule PO ×3 (05:13→22:43)
[2019-04-02 05:22] VITALS: BP 122/78; PULSE 75; RESP 18; TEMP 36.6; O2SAT 96
[2019-04-02 08:18] VITALS: O2SAT 95
[2019-04-02 08:47] VITALS: BP 140/74; PULSE 85; RESP 18; TEMP 36.6; O2SAT 99
[2019-04-02] MEDS: Lisinopril 5 MG Tablet PO (08:54)
[2019-04-02] MEDS: Senna/Docusate Sodium 1 Tablet 2 TABLET PO (08:54)
[2019-04-02] MEDS: Acetaminophen 325 MG Tablet 650 MG PO ×2 (13:08→22:42)
[2019-04-02] MEDS: oxyCODONE 5 MG Tablet 10 MG PO ×2 (13:08→22:43)
[2019-04-02 15:09] VITALS: BP 141/82; PULSE 88; RESP 16; TEMP 37.2; O2SAT 98
--- NOTE | 2019-04-02 15:12 | CHAPLAIN ---
Type of Pastoral Visit ___ Initial Visit _x__ Follow-up Visit ___ On-call Visit ___ General Patient Visit ___ Spiritual Assessment ___ Family Conference ___ Bereavement ___ Rapid Response ___ Code Blue ___ Other (describe below) Pastoral Care Referral From _x__ Patient ___ Family ___ Nurse ___ Physician ___ Capper Machine Operator ___ Switch Tender ___ Other (describe below) Sacrament/Intervention _x__ Active listening ___ Anointing ___ Temple ___ Bereavement ___ Communion ___ Radha exploration ___ _x__ Life review _x__ Prayer ___ Reconciliation ___ Sacrament of Sick _x__ Supportive presence ___ Wedding ___ Other (describe below) Pastoral Comments
[2019-04-02 20:04] VITALS: BP 143/87; PULSE 76; RESP 18; TEMP 36.6; O2SAT 98
[2019-04-03] MEDS: 0.9% NaCl Peripheral Flush Adult/Peds IV ×3 (00:58→06:44)
[2019-04-03] MEDS: dexAMETHasone 4 MG/ML Vial IV ×2 (00:58→06:44)
[2019-04-03 01:03] VITALS: BP 135/83; PULSE 72; RESP 16; TEMP 36.7; O2SAT 94
[2019-04-03] MEDS: HYDROmorphone 1 MG/ML Syringe IV ×3 (04:10→19:26)
--- NOTE | 2019-04-03 06:33 | NURSING ---
Per Sallie AWAD, [facility] called & they do not yet have a bed available for this pt.
[2019-04-03 06:41] VITALS: BP 134/97; PULSE 68; RESP 18; TEMP 37; O2SAT 99
[2019-04-03] MEDS: Gabapentin 300 MG Capsule PO ×3 (06:44→21:48)
--- NOTE | 2019-04-03 07:52 | PCM.PROGNOTE ---
Patient Problems: Active and Suspected Problems Sciatica (Acute) Intractable low back pain (Acute) Subjective: The date of this dictation is 04/02/2019: Patient was seen and examined today, initially earlier this morning she stated that her pain was a 3 out of 10 but later on in the day, she attempted to get up with physical therapy and had severe pain in her left leg. I discussed sending her to a tertiary care center for further treatment, she agreed and after some time came up with [facility]. I contacted [facility] via the transfer line and they accepted the patient. Patient has no complaints of any fever, chills, chest pain, or shortness of breath. She has no complaints of actual weakness in the lower extremities. - Physical Exam General: Alert, Oriented x3, Cooperative, No apparent distress, Well developed HEENT: Atraumatic, PERRLA, EOMI, Normocephalic Oral: Moist Mucosa Neck: Supple, Trachea Midline, Thyroid Normal Size and Texture Lungs: Clear to auscultation, Normal air movement, No rhonchi, No wheeze, No rales Cardiovascular: Regular rate, Regular Rhythm, Normal S1, Normal S2, No murmurs Abdomen: Bowel Sounds Present, Soft, Non Tender, Non-Distended, Obese Extremities: No edema, Capillary Refill Less than 3 Seconds Skin: No rashes, No breakdown Neurological: Cranial nerves II-XII grossly intact, Neuro grossly intact, Motor Exam 5/5 strength throughout, Sensory exam intact to light touch and pain, Coordination normal Psych/Mental Status: Normal Affect, Appropriate, Alert and oriented to time, place, person, mood and affect Vital Signs Temp Pulse Resp BP Pulse Ox 98.6 F 68 18 134/97 H 99 04/03/19 06:41 04/03/19 06:41 04/03/19 06:41 04/03/19 06:41 04/03/19 06:41 Oxygen Delivery Method Room Air Weight: 104.6 kg Body Mass Index (BMI) 38.3 Intake and Output for Last 24 Hours 04/01/19 04/02/19 04/03/19 23:59 23:59 23:59 Intake Total 1060 / 1060 2499 / 3074 875 / 875 Output Total 1800 / 1800 700 / 700 Balance 1060 / 1060 699 / 1274 175 / 175 Medical Necessity - Tobacco Use Smoking Status: Never smoker Assessment/Plan All Active Problems Sciatica (Acute) Intractable low back pain (Acute) Abdominal pain (Resolved) #1 acute sciatica left leg secondary to L4-L5 left paracentral caudal disc extrusion-status post epidural injection, again patient is having significant amounts of pain in her left leg, I think it would be crum to transfer her to a tertiary care center where she can be evaluated by neurosurgery or orthopedic surgery. [facility] has accepted the patient. #2 hypertension #3 musculoskeletal chest pain-resolved Code Visit Inpatient E&M: 42238 Subs Hosp L2
[2019-04-03] MEDS: oxyCODONE 5 MG Tablet 10 MG PO ×3 (09:08→22:08)
[2019-04-03] MEDS: Acetaminophen 325 MG Tablet 650 MG PO (09:09)
[2019-04-03] MEDS: Lisinopril 5 MG Tablet PO (09:10)
[2019-04-03] MEDS: Senna/Docusate Sodium 1 Tablet 2 TABLET PO (09:10)
[2019-04-03 10:35] VITALS: O2SAT 95
--- NOTE | 2019-04-03 10:50 | NURSING ---
[facility] called to check on bed status, no bed available at this time per coordinator.
[2019-04-03 11:09] VITALS: BP 142/88; PULSE 93; RESP 18; TEMP 37.2; O2SAT 100
--- NOTE | 2019-04-03 14:22 | NURSING ---
[facility] CALLED FOR AN UPDATE - NO BED AVAILABLE AT THIS TIME BUT WILL KEEP IN TOUCH
[2019-04-03 15:04] VITALS: BP 148/80; PULSE 92; RESP 18; TEMP 36.9; O2SAT 100
--- NOTE | 2019-04-03 17:18 | PN_ITS ---
Patient Problems: Active and Suspected Problems Sciatica (Acute) Intractable low back pain (Acute) Subjective: Patient was seen and examined today, she was not able to be moved to [facility] due to lack of bed availability, at this time, we are still awaiting confirmation of the bed at [facility]. Patient continues to complain of severe pain on her left leg and inability to stand and walk without severe pain. - Physical Exam General: Alert, Oriented x3, Cooperative, Well developed HEENT: Atraumatic, PERRLA, EOMI, Normocephalic Oral: Moist Mucosa Neck: Supple, Trachea Midline, Thyroid Normal Size and Texture Lungs: Clear to auscultation, Normal air movement, No rhonchi, No wheeze, No rales Cardiovascular: Regular rate, Regular Rhythm, Normal S1, Normal S2, No murmurs, No Ectopic Activity Abdomen: Bowel Sounds Present, Soft, Non Tender, Non-Distended Extremities: No clubbing, No cyanosis, No edema, Capillary Refill Less than 3 Seconds Skin: No rashes, No breakdown Musculoskeletal: No Tenderness to Palpation of Joints or Extremities Neurological: Cranial nerves II-XII grossly intact, Neuro grossly intact, Sensory exam intact to light touch and pain, Coordination normal Psych/Mental Status: Normal Affect, Appropriate, Alert and oriented to time, place, person, mood and affect Vital Signs Temp Pulse Resp BP Pulse Ox 98.4 F 92 18 148/80 H 100 04/03/19 15:04 04/03/19 15:04 04/03/19 15:04 04/03/19 15:04 04/03/19 15:04 Oxygen Delivery Method Room Air Weight: 104.6 kg Body Mass Index (BMI) 38.3 Intake and Output for Last 24 Hours 04/01/19 04/02/19 04/03/19 23:59 23:59 23:59 Intake Total 1060 / 1060 2499 / 3074 1275 / 1275 Output Total 1800 / 1800 1200 / 1200 Balance 1060 / 1060 699 / 1274 75 / 75 Medical Necessity - Tobacco Use Smoking Status: Never smoker Assessment/Plan All Active Problems Sciatica (Acute) Intractable low back pain (Acute) Abdominal pain (Resolved) #1 acute sciatica left leg secondary to L4-L5 left paracentral caudal disc extrusion-status post epidural injection-postop day #2, again patient is having significant amounts of pain in her left leg, I think it would be crum to transfer her to a tertiary care center where she can be evaluated by neurosurgery or orthopedic surgery. [facility] has accepted the patient, we are c urrently awaiting a bed. #2 hypertension #3 musculoskeletal chest pain-resolved Code Visit Inpatient E&M: 59730 Subs Hosp L2
[2019-04-03 21:40] VITALS: BP 136/93; PULSE 66; RESP 16; TEMP 36.6; O2SAT 96
--- NOTE | 2019-04-03 21:47 | NURSING ---
Received a call from [facility] that they have a bed for this pt. [facility], [facility] [address], [address]th Floor, Room 970. Report can be called to [phone].
--- NOTE | 2019-04-03 22:09 | NURSING ---
called report to TANJA Llamas at [facility]
--- NOTE | 2019-04-03 22:36 | NURSING ---
[facility] is here to transport pt to [facility], [address] [place].
--- NOTE | 2019-04-04 08:40 | PCM.DC.SUM ---
Discharge Date and Diagnosis Date of Admission: 03/30/19 Date of Discharge: 04/03/19 - Primary Discharge Diagnosis #1 acute sciatica left leg secondary to L4-L5 left paracentral caudal disc extrusion #2 hypertension #3 musculoskeletal chest pain-resolved - Secondary Discharge Diagnosis Chronic Problems Hypertension (Chronic) Hospital Course and Treatment Operations: None Procedures: - - Epidural injection Summary of Care Provided: The patient is a 33 year old F who was seen in the emergency room at [facility] with chief complaint of severe left leg pain. Patient had been undergoing physical therapy for left lower leg pain but had been unable to progress due to the severity of the left leg pain. She complained of pain radiating down the back of her left leg, it was worse when she was standing or sitting. Patient was placed in the observation status on [employer] 3, MRI was obtained of the lumbar spine, it showed a L4-L5 left paracentral caudal disc extrusion. Patient was seen by PT and OT, she was seen by pain management who performed an epidural injection, patient was also given IV Decadron while she was in the hospital. Despite all these interventions, patient had severe pain which debilitated her and she was not able to walk or stand (or sit) for any length of time due to severe left leg pain from sciatica. Conversations were carried out with the patient, she desired to go to [facility] for further care and possible surgery (? Microdiscectomy). On 04/03/2019, patient was seen and examined: On examination she appeared in good health and spirits. Vital signs as documented. Skin warm and dry and without overt rashes. Neck without JVD. Lungs clear. Heart exam notable for regular rhythm, normal sounds and absence of murmurs, rubs or gallops. Abdomen unremarkable and without evidence of organomegaly, masses, or abdominal aortic enlargement. Extremities nonedematous. Neuro: Cranial nerves II through XII are grossly intact, no focal motor deficits were noted, sensation to light touch and pinprick is intact. Patient was unable to stand, sit, or walk due to severe left buttocks and left leg pain. Psych: Patient is alert and oriented x3, she does not appear anxious or depressed On 04/03/2019, patient was seen and examined and felt to be in stable condition for transfer to [facility] for further care. - Physical Exam Vital Signs Temp Pulse Resp BP Pulse Ox 98 F 66 16 136/93 H 96 04/03/19 21:40 04/03/19 21:40 04/03/19 21:40 04/03/19 21:40 04/03/19 21:40 Oxygen Delivery Method Room Air Weight: 104.6 kg Body Mass Index (BMI) 38.3 Intake and Output for Last 24 Hours 04/02/19 04/03/19 04/04/19 23:59 23:59 23:59 Intake Total 2499 / 3074 2245 / 2245 Output Total 1800 / 1800 1200 / 1200 Balance 699 / 1274 1045 / 1045 Home Medications: Medications to take at Discharge Lisinopril [Zestril] 5 mg PO DAILY 07/05/16 Flexeril 5 mg PO TID PRN PRN 03/30/19 Gabapentin [Neurontin] 100 mg PO BID 03/30/19 Prednisone 10 mg PO DAILY 03/30/19 Primary Care Physician: Guille Pavon III, MD [Primary Care Provider] - Disposition: Acute care Hospital Minutes spent on discharge:: 32 Patient Condition:: Stable Medical Necessity - Tobacco Use Smoking Status: Never smoker Meaningful Use Info Meaningful Use Diagnoses (Choose all that apply): None applicable Code Visit OBSV E&M: 12674 Observation care discharge
== END 2019-04-03 22:40 | disposition short-term general hospital (02) ==
LOC: ED 15:31 → MS3 21:11
PROVIDERS: Anesthesiology; Anesthesiology Pain Medicine; Admitting Provider Hospitalist; Emergency Provider Emergency Medicine; Family Provider Family Medicine; PCP Family Medicine; Referring Provider Hospitalist; Visit Provider Internal Medicine
PROC: 3E0S3BZ Introduction of Anesthetic Agent into Epidural Space, Percutaneous Approach (ICD-10-PCS; CPT 62322; principal; 2019-04-01 14:30)
DX: M51.16 Intervertebral disc disorders with radiculopathy, lumbar region (principal); I10 Essential (primary) hypertension; Z79.899 Other long term (current) drug therapy; Z79.52 Long term (current) use of systemic steroids; Z87.891 Personal history of nicotine dependence; R00.0 Tachycardia, unspecified; R20.0 Anesthesia of skin; R07.89 Other chest pain
CPT/HCPCS: 62323; 36415; 64483; 72020; 72148; 80048; 81025; 85027; 93005; 96374; 96375; 96376; 97162; 97530; 99218; 99283; J7030; J7040; A4216; G0378

== ENCOUNTER → 2019-06-16 09:45 | Outpatient (CLI) | payer OTHER, SELFPAY ==
[2019-04-01 08:51] VITALS: BMI 38.3
[2019-06-16 10:58] LABS: Follicle Stimulating Hormone 1.8 mIU/mL; Luteinizing Hormone 3.4 mIU/mL; Prolactin 5.5 ng/mL
== END ==
PROVIDERS: Visit Provider Obstetrics & Gynecology
DX: N91.2 Amenorrhea, unspecified (principal)
CPT/HCPCS: 36415; 83001; 83002; 84146

== ENCOUNTER 2019-08-01 16:30 | Outpatient (RCR) | payer OTHER, SELFPAY ==
[2019-04-01 08:51] VITALS: BMI 38.3
--- NOTE | 2019-05-22 13:57 | HP.PTEVAL_ITS ---
Patient's Visit Information DADA ANGULO is a 33 year old F referred to Physical Therapy by Orin Presley MD with a diagnosis of S/P LUMBAR DISCECTOMY. Date of Evaluation: 05/22/19 Physical Therapist: Iman Kinsey PT, Cert MDT - Visit Plan Frequency: 2-3x /Week Duration: 4-6 Weeks Plan: POSTURE CORRECTION/STRENGTHENING, INSTRUCTION IN APPROPRIATE BODY MECHANICS AND ACTIVITY MODIFICATIONS. DLS STARTING WITH A NEUTRAL SPINE PROGRESSING ROM TOLERATED. SAJAN LE ROM, STRETCHING AND STRENGTHENING. HEP INSTRUCTION. *MINIMAL LIFTING > 10 LBS, BENDING, PUSHING, PULLING, TWISTING AND OVER HEAD EXTENSION FOR 4-6 WEEKS. 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 RELEASED TO GO BACK TO WORK FULL DUTY TODAY. STARTED BACK TO WORK 1/2 DAYS X 2 WEEKS AND TOLERATED WELL. Disability: NO. Present symptoms: LEFT CALF YURI HORSES (STARTED AFTER SURGERY). SAJAN LOW BACK PAIN. NO RIGHT LE SX'S. OCCASSIONAL LLE PAIN - PINCH IN LEFT BUTTOCK AND LEFT LATERAL CALF. NO FOOT OR TOE SX'S EXCEPT NUMBNESS LEFT FIRST TWO TOES (NUMBNESS IS IMPROVING). Present since: JANUARY 2019. Pain Scale: WORST 3/10, LEAST 1/10. Currently: /10. Commenced as a result of: NO APPARENT REASON. WOKE UP WITH IT ONE MORING. Symptoms at onset: LEFT BUTTOCK PAIN - COULDN'T MOVE. GRADUALLY WENT DOWN LEG. Worse: PROLONGED SITTING, PRLONGED STANDING, BENDING, TRAVELING, TRYING TO GET LEFT SOCK ON. Better: ICE, CHANGE OF POSITION. Disturbed sleep: NO. Previous history/Previous treatment: PATIENT REPORTS SHE TRIED PHYSICAL THERAPY PRIOR TO SURGERY AND THE LAST TWO WEEKS WERE HORRIBLE - EVERYTHING WE DID MADE IT WORSE. ALSO TRIED TWO ROUNDS OF PREDNISONE. DID NERVE BLOCK BEFORE SURGERY BUT DIDN'T HELP. WENT TO ED IN MARCH AND WAS ADMITTED TO [facility] FOR 5 DAY THEN TRANSFERRED TO [place] FOR 5 DAYS WHERE SHE HAD THE BACK SURGERY BY DR. PRESLEY ON APRIL 08 2019 (CURRENTLY ABOUT 6 WEEKS PO). NO PT SINCE THE SURGERY. PATIENT REPORTS SHE HAD A BAD EXPERIENCE IN PHYSICAL THERAPY AT [facility] AND SHE WILL NOT GO BACK. HISTORY OF LBP TREATED BY CHIROPRACTOR OFF AND ON FOR ABOUT 15 YEARS. Coughing/sneezing/strain ing: NEGATIVE. Gait: PRETTY NORMAL - MAYBE A LITTLE SLOWER. Difficulty initiating urinatin: NO. Accidents: NO. Unexplained weight loss: NO. Imaging: LUMBAR X-RAYS AND MRI PRIOR TO SURGERY SHOWING HNP L45. ALSO BULGE L5S1 - SEE [facility] EMR. PMH: HTN. PLOF (Prior Level of Function): UNLIMITED. - Objective Sitting/Standing Posture: POOR. Lordosis: REDUCED. Lateral shift: NO. Relevant shift: N/A. Active Correction of posture: BETTER. Other Observations: INDEP GAIT INTO PT WITH NO GROSS DEVIATIONS NOTED. PATIENT IS CAUSIOUS BUT INDEP WITH ALL TRANSFERS. INDEP SIT TO STAND WITHOUT UE ASSIST. Motor deficit: MMT: RIGHT HIP 4/5, LEFT HIP 3+/5. RIGHT KNEE 5/5, LEFT KNEE 4-/5. RIGHT ANKLE 5/5, LEFT ANKLE 4/5, RIGHT EHL 5/5, LEFT EHL 3+/5. Sensory deficit: DECREASED LIGHT TOUCH SENSATION OF LEFT LATERAL THIGH, LATERAL LEG AND FOOT COMPARED TO RIGHT. ROM deficit: TIGHT SAJAN HS'S LEFT > RIGHT AND LEFT GASTROC SOLEUS COMPLEX. Reflexes: NT. Dural Signs: POSITIVE LLE. Lumbar mvmt loss: flex - MOD. ext - YOEL. R SG - MOD. L SG - MOD. PATIENT MOVES VERY CAUSIOUSLY AND IS LIMITED ALL PLANES. SHE FEELS PULLING IN HER RIGHT CALF WITH FORWARD FLEXION AND PINCHING IN THE RIGHT LOW BACK WITH BACK EXT TESTING. SHE FEELS LEFT ANTERIOR HIP PULLING WITH RIGHT SG TESTING AN NO PAIN BUT LIMITATION WITH LEFT SG TESTING. Core strength: POOR. Palpation: INCISION LOOKS GOOD WITHOUT ANY SIGNS OF INFECTION BUT THERE MIGHT THERE IS A LITTLE BUMP AT THE BOTTOM LEFT OF THE INCISION AND DR. PRESLEY TOLD HER IT MIGHT BE AN UNDISOLVED STITCH. - Goals Goal 1:: DECREASE C/O LOW BACK AND LLE SX'S (MONITOR CURRENT INTERMITTENT RIGHT HIP PAIN TOO). Goal Time Frame: 4-6 Weeks Goal 2:: IMPROVE PERSONAL CARE, LIFTING, SITTING, STANDING, TRAVEL, WORK AND HOMEMAKING FUNCTION Goal Time Frame: 4-6 Weeks Goal 3:: INSTRUCT IN PROPHYLAXIS Goal Time Frame: 4-6 Weeks - Rehabilitation Potential Rehabilitation Potential: Good - Anticipated Interventions Patient/Client Instruction: Educate patient on: Condition, Plan of Care, Risk Factors, Benefits of Fitness Program For the Purpose of:: To improve self management Therapeutic Exercise to Include: Strength training, Body mechanics, Postural training, Flexibilty training, Dynamic Lumbar Stabilization For the Purpose of:: To improve muscle performance and motor function, To increase tolerance to activity/condition/position, To improve ability of physical actions for home/community/work/leisure Thank you for the opportunity to evaluate your patient. For Medicare and Medicare HMO plans, please review the plan of care and approve it. It will need to be FAXED BACK to us at [phone] for Medicare purposes. For Medicare only, by signing this I certify the plan of care. Please let me know if there are questions or concerns regarding this plan of care. Physician Signature: Date:
--- NOTE | 2019-06-23 17:16 | HP.PTREVAL ---
Orin Presley MD, It has been my pleasure to treat DADA ANGULO over the last 13 visits for S/P LUMBAR DISCECTOMY. Please see the progress note below for an update on the physical therapy plan of care! Subjective: PATIENT REPORTS HER LLE ROM IS BETTER AND SHE CAN PUT HER OWN SOCK ON NOW. SHE REPORTS SHE CAN GET IN AND OUT OF BED A LOT EASIER, HAS MORE LLE STRENGTH AND SHE IS SLEEPING BETTER. FOLLOW UP PENDING WITH DR. PRESLEY Jun. STILL FEELS LIKE SHE MIGHT HAVE AN UNDISOLVED STITCH POKING HER. BACK TO WORK [employer] FULL DUTY AND DOING OK. NO LONGER HAVING YURI HORSES IN LEFT LE. EVERY ONCE IN AWHILE A LITTLE BIT OF LATERAL CALF PAIN LEFT ABOVE ANKLE. NOT NOTICING ANY MORE TOE NUMBNESS. HAVING SOME NEW RIGHT FOOT PAIN UPON RISING IN THE MORNING BUT IT GOES AWAY THE REST OF THE DAY. Objective/Function: PATIENT IS MAKING GOOD PROGRESS TOWARD ALL PT GOALS AND IS A GOOD CANDIDATE TO CONTINUE AQUATIC THERAPY BASED ON PROGRESS MADE AND ROOM FOR MORE IMPROVEMENT. PATIENT IS AGREEABLE. UPON EXAM TODAY: PATIENT DEMONSTRATES. INDEP GAIT INTO PT WITH NO GROSS DEVIATIONS NOTED. PATIENT IS LESS CAUSIOUS AND INDEP WITH ALL TRANSFERS. SHE DEMONSTRATES INCREASED FREEDOM OF MOTION WITH MVMT WITH LESS GURADING NOW. INDEP SIT TO STAND WITHOUT UE ASSIST. Motor deficit: MMT: RIGHT HIP 4/5, LEFT HIP 4-/5. RIGHT KNEE 5/5, LEFT KNEE 5/5. RIGHT ANKLE 5/5, LEFT ANKLE 5/5 EXCEPT EVERSION 4/5, RIGHT EHL 5/5, LEFT EHL 4-/5. Sensory deficit: DECREASED LIGHT TOUCH SENSATION OF LEFT LATERAL LEG AND FOOT COMPARED TO RIGHT. MEDIAL FOOT TINGLING WITH TESTING. ROM deficit: TIGHT SAJAN HS'S LEFT > RIGHT AND LEFT GASTROC SOLEUS COMPLEX. Reflexes: NT. Dural Signs: POSITIVE LLE. Lumbar mvmt loss: flex - MOD. ext - MOD. R SG - MOD. L SG - MOD. SHE FEELS PULLING IN HER LEFT CALF WITH FORWARD FLEXION AND PINCHING IN THE RIGHT LOW BACK WITH BACK EXT TESTING. SG TESTING SAJAN DOES NOT INCREASE OR PRODUCE ANY SX'S. Core strength: POOR. Palpation: INCISION LOOKS GOOD WITHOUT ANY SIGNS OF INFECTION BUT THERE IS STILL A LITTLE BUMP AT THE BOTTOM LEFT OF THE INCISION AND DR. PRESLEY TOLD HER IT MIGHT BE AN UNDISOLVED STITCH. LUMBAR OSWESTRY HAS IMPROVED FROM 12 TO 6. Plan Plan: CONT AQUATIC THERAPY WORKING TOWARD SAME GOALS. DECRASE TO TWO TIMES A WEEK. ENCOURAGED PATIENT TO START INDEP POOL EX 1-2 TIMES A WEEK ALSO. PATIENT IS AGREEABLE TO THIS POC Goals Goal 1:: DECREASE C/O LOW BACK AND LLE SX'S (MONITOR CURRENT INTERMITTENT RIGHT HIP PAIN TOO). Goal Time Frame: 4-6 Weeks Goal Progress: Progressing Goal 2:: IMPROVE PERSONAL CARE, LIFTING, SITTING, STANDING, TRAVEL, WORK AND HOMEMAKING FUNCTION Goal Time Frame: 4-6 Weeks Goal Progress: Progressing Goal 3:: INSTRUCT IN PROPHYLAXIS Goal Time Frame: 4-6 Weeks Goal Progress: Progressing Anticipated Interventions Patient/Client Instruction: Educate patient on: Condition, Plan of Care, Risk Factors, Benefits of Fitness Program For the Purpose of:: To improve self management Therapeutic Exercise to Include: Strength training, Body mechanics, Postural training, Flexibilty training, Dynamic Lumbar Stabilization For the Purpose of:: To improve muscle performance and motor function, To increase tolerance to activity/condition/position, To improve ability of physical actions for home/community/work/leisure Please do not hesitate to contact me at [phone] by phone or if you have questions or concerns regarding this new plan of care! Sincerely, Iman Kinsey PT, Cert MDT
--- NOTE | 2019-08-01 16:52 | HP.PTDCSUM ---
HP - PT D/C Summary It has been my pleasure to treat DADA ANGULO under orders from Orin Presley MD, for the diagnosis of S/P LUMBAR DISCECTOMY for a total of 20 visit(s). Discharge Date: 08/01/19 Please see the following information for a summary of their discharge status. - Subjective Subjective: PATIENT REPORTS HER FOLLOW UP WITH DR. PRESLEY WENT WELL. FOLLOW UP PENDING OCT 14 2108. PATIENT REPORTS SHE DOES NOT HAVING ANY RESTRICTIONS. PATIENT REPORTS THE STRENGTH IN HER LEGS IS GETTING BETTER. SHE ALSO REPORTS IMPROVED BALANCE. - Pain Lumbar Spine Pain Intensity (Out of 10): 0 LLE Pain Intensity (Out of 10): 0 - Overall Improvement % Improvement: 90 - Objective Objective/Function: ALL GOALS MET. Motor deficit: MMT: SAJAN LE'S 5/5 WITH MMT'ING. Sensory deficit: DECREASED LIGHT TOUCH SENSATION OF LEFT LATERAL LEG AND FOOT COMPARED TO RIGHT. Dural Signs: NEGATIVE SAJAN LLE. Lumbar mvmt loss: flex - MOD. ext - MOD. R SG - MIN. L SG - MIN. PATIENT DENIES PAIN WITH LUMBAR ROM TESTING ALL PLANES. Core strength: POOR - Goals Goal 1:: DECREASE C/O LOW BACK AND LLE SX'S (MONITOR CURRENT INTERMITTENT RIGHT HIP PAIN TOO). Goal Progress: Progressing Goal 2:: IMPROVE PERSONAL CARE, LIFTING, SITTING, STANDING, TRAVEL, WORK AND HOMEMAKING FUNCTION Goal Progress: Progressing Goal 3:: INSTRUCT IN PROPHYLAXIS Goal Progress: Progressing - Plan Plan: D/C TO INDEP POOL PROGRAM. PATIENT IS AGREEABLE. - D/C Information If there are questions or concerns regarding this patient's physical therapy, please feel free to call me at [phone]. Thank you for the referral of this patient. Sincerely, Iman Kinsey, PT, Cert MDT
== END 2019-08-01 19:00 | disposition home or self-care (01) ==
LOC: PT 16:30
PROVIDERS: Family Provider Family Medicine; PCP Family Medicine; Referring Provider Orthopaedic Surgery; Visit Provider Orthopaedic Surgery
DX: Z98.890 Other specified postprocedural states (principal)
CPT/HCPCS: 97110; 97113; 97162; 97530

== ENCOUNTER → 2020-01-07 11:38 | Outpatient (CLI) | payer OTHER, SELFPAY ==
[2019-04-01 08:51] VITALS: BMI 38.3
== END ==
PROVIDERS: PCP Family Medicine; Referring Provider Otolaryngology; Visit Provider Otolaryngology
DX: J18.9 Pneumonia, unspecified organism (principal); R05 Cough
CPT/HCPCS: 87070; 87077; 87205

== ENCOUNTER → 2020-02-12 15:57 | Outpatient (CLI) | payer OTHER, SELFPAY ==
[2019-04-01 08:51] VITALS: BMI 38.3
[2020-02-18 03:06] LABS: Age Gdln ACOG Testing 30-65 (.)
[2020-02-18 06:49] LABS: HPV APTIMA, High Risk Negative (Negative); HPV Reflexed? NOT INDICATED
== END ==
PROVIDERS: PCP Family Medicine; Visit Provider Obstetrics & Gynecology
DX: Z12.4 Encounter for screening for malignant neoplasm of cervix (principal)
CPT/HCPCS: 88175; G0145

== ENCOUNTER → 2020-02-27 07:08 | Outpatient (CLI) | payer OTHER, SELFPAY ==
[2019-04-01 08:51] VITALS: BMI 38.3
--- NOTE | 2020-02-27 07:22 | BI_ITS ---
MAMMOGRAPHY - BILATERAL SCREENING REASON FOR EXAM: Female, 34 years old. Routine annual screening examination. PERTINENT HISTORY: Grandmother with breast cancer. Aunt with breast cancer. TECHNIQUE: Digital bilateral breast cathy (3D mammographic acquisition) in the CC and MLO projections. 2-D mediolateral oblique (MLO) and craniocaudad (CC) views of both breasts were obtained. CAD: Full Field Digital Mammography with Computer Added Detection was performed. COMPARISON: None. Baseline examination. FINDINGS: Breast Composition: The breasts are heterogeneously dense, which may obscure small masses. There are no dominant masses or suspicious calcifications. No other significant abnormalities are identified. BI/SCREEN MAMM (CAD) W/CATHY BILAT IMPRESSION: Negative screening mammogram. Yearly followup mammogram recommended. (A) ASSESSMENT CATEGORY: BIRADS Category 1: Negative. A letter regarding these results will be sent to the patient by the facility within 30 days. Approximately 10% of breast cancers are not detected by mammography. A normal mammogram should not delay biopsy of a clinically suspicious abnormality. [id number] Electronically Signed: Shay Short, at 9:04 EDT , Service support ,
== END ==
LOC: OPBI 07:21 → LABSPEC 16:12
PROVIDERS: PCP Family Medicine; Referring Provider Obstetrics & Gynecology; Visit Provider Otolaryngology
DX: J32.9 Chronic sinusitis, unspecified (principal); Z12.31 Encounter for screening mammogram for malignant neoplasm of breast
CPT/HCPCS: 77063; 77067; 87070; 87205

== ENCOUNTER → 2020-03-30 07:03 | Outpatient (CLI) | payer OTHER, SELFPAY ==
[2019-04-01 08:51] VITALS: BMI 38.3
--- NOTE | 2020-03-30 07:08 | CT_ITS ---
STUDY: CT MAXILLOFACIAL SINUSES REASON FOR EXAM: Female, 34 years old. SINUSITIS X 3 MONTHS RADIATION DOSAGE (If Supplied By Facility): CTDIvol = ( 33.06 ) mGy, DLP = ( 846.25 ) mGycm TECHNIQUE: The patient was scanned in a multi detector CT scanner. High resolution axial imaging was performed without the administration of intravenous contrast material. Sagittal and coronal images were reconstructed. Individualized dose optimization techniques were used for this CT. COMPARISON: None. FINDINGS: FRONTAL SINUSES: Normal aeration, without mucosal inflammatory disease. ETHMOIDAL SINUSES: Normal aeration, without mucosal inflammatory disease. MAXILLARY SINUSES: Normal aeration, without mucosal inflammatory disease. SPHENOIDAL SINUSES: Normal aeration, without mucosal inflammatory disease. There is patency of the bilateral maxillary infundibuli with normal uncinate processes, ethmoid bullae, and hiatus semilunaris. Normal bilateral middle turbinates. There is hypertrophy of the left inferior nasal turbinate. There is a left sided nasal septal deviation, but without a nasal septal spur. There is patency of the bilateral nasal airways. The visualized osseous structures are normal. The visualized bilateral orbital contents are normal. CT/Sinus/Facial Bone IMPRESSION: Hypertrophy of the inferior nasal turbinate on the left. Nasal septal deviation towards the left side of the midline. Electronically Signed: Shay Short, at 9:59 EDT , Service support ,
== END ==
PROVIDERS: PCP Family Medicine; Referring Provider Otolaryngology; Visit Provider Otolaryngology
DX: J32.9 Chronic sinusitis, unspecified (principal)
CPT/HCPCS: 70486

== ENCOUNTER 2020-05-12 16:00 | Outpatient (RCR) | payer OTHER, SELFPAY ==
[2019-04-01 08:51] VITALS: BMI 38.3
--- NOTE | 2020-03-24 11:25 | HP.PTEVAL ---
Patient's Visit Information DADA ANGULO is a 34 year old F referred to Physical Therapy by JORDY DUMONT with a diagnosis of S/P LUMBAR LAMINECTOMY ,LEG PAIN LEFT. Date of Evaluation: 03/23/20 Physical Therapist: Vivek Kaplan, PT, Cert MDT, OCS - Visit Plan Frequency: 2x /Week Duration: 4 Weeks Plan: PT INTERVENTIONS DLS ,LE FLEXABILITY LEFT ANR,MAGGI EX'S ,POSTURAL EX'S,MODALTIES FOR PAIN - Subjective This 34 y/o female presents to physical therapy lumbar pain with leg symptoms. Patient intially had Lumbar disectomy L4-5 April 082018 done Janelle at [facility]. Patient had prior PT Aquatic therapy whiched helped. Most recently,patient developed 4 weeks noticed more symptoms in left lumbar >right with lateral lateral leg. Seen PAC did x-rays showed DDD and narrowing. Patient has not specific reason or predisposing factors. Aggraveting factors sleeping feelis spasms in lower leg.,siting extending . Alleviating factors walking and standing. Coughing/sneezing -. Bowel/bladder -. No meds. Pateint pain affects ADL's ,job demnads and housework tasks. SOCIAL: 2children. 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 GAIT: reciprocal pattern. NEURO: denies parathesia/tingling,reflexes L3-4,L4-5,L5-S1. SYMMTRIES: align. FLEXABLITY: hams min/mod tight left ,right WFL. MMT: quads 4-/5 left ,hams 4/5 left,right 4/5,hip flexion 4/5,ankle 4/5. LUMBAR ROM: flexion WFL,extension min loss,side glides WFL - Special Tests L/S Slump test left side: Negative L/S Slump test right side: Positive L/S Left Straight Leg Raise: Negative L/S Right Straight Leg Raise: Negative Lumbar Standing: Flexion - Mechanical Response: No effect Lumbar Standing: Flexion - Symptoms During Testing: No effect Lumbar Standing: Flexion - Symptoms After Testing: No effect Lumbar Standing: Extension - Mechanical Response: No effect Lumbar Standing: Extension - Symptoms During Testing: No effect Lumbar Standing: Extension - Symptoms After Testing: No effect Comments:: TIGHT Lumbar Standing: Right Side Glides - Mechanical Response: No effect Lumbar Standing: Right Side [place] - Symptoms During Testing: No effect Lumbar Standing: Right Side [place] - Symptoms After Testing: No effect Lumbar Standing: Left Side [place] - Mechanical Response: No effect Lumbar Standing: Left Side [place] - Symptoms During Testing: No effect Lumbar Standing: Left Side [place] - Symptoms After Testing: No effect Lumbar Lying: Flexion - Mechanical Response: No effect Lumbar Lying: Flexion - Symptoms During Testing: No effect Lumbar Lying: Flexion - Symptoms After Testing: No effect Lumbar Lying: Extension - Mechanical Response: Increases motion Lumbar Lying: Extension - Symptoms During Testing: Decreases Lumbar Lying: Extension - Symptoms After Testing: Better - Goals Goal 1:: Patient to be I with HEP. Goal Time Frame: 4-6 Weeks Goal 2:: Patient to improve posture /body mechanics Goal Time Frame: 4-6 Weeks Goal 3:: Patient improve lumbar ROM for function of recovery Goal Time Frame: 4-6 Weeks Goal 4:: Patient to decrease episode of lumbar and leg symptoms by 75% or > to improve function QOL. Goal Time Frame: 4-6 Weeks Goal 5:: Patient improve back owestry score by 5 points or > to improve function and QOL. Goal Time Frame: 4-6 Weeks - Rehabilitation Potential Physical Therapy Diagnosis: This patient has h/o undergoing lumbar laminectomy last year April 08 from L4-5 lumbar extrusion. Currently developed some symptoms in leg and spasms at night left calf ,better with walking and standing ,worse extended sitting and driving. Patient has decrease ROM ,+ ANR mild left leg thus benifit from skilled PT. Rehabilitation Potential: Good - Anticipated Interventions Patient/Client Instruction: Educate patient on: Condition, Plan of Care For the Purpose of:: To decrease pain, To increase ROM, To improve muscle performance and motor function, To improve ability to perform ADL's, To increase tolerance to activity/condition/position, To improve ability of physical actions for home/community/work/leisure, To improve health of tissue, To decrease soft tissue restriction, To increase flexibility/ROM, To improve ability to perform tasks related to life management Therapeutic Exercise to Include: Strength training, Body mechanics, Postural training, Flexibilty training, Dynamic Lumbar Stabilization, Maggi Exercises For the Purpose of:: To decrease pain, To increase ROM, To improve muscle performance and motor function, To increase tolerance to activity/condition/position, To improve ability of physical actions for home/community/work/leisure, To improve health of tissue, To decrease soft tissue restriction, To increase flexibility/ROM, To improve ability to perform tasks related to life management TENS: Yes IF ES: Yes Cryotherapy (ice pack, ice massage): Yes Thermo therapy (hot pack): Yes For the Purpose of:: To decrease pain, To increase ROM, To improve nutrient delivery to tissue, To increase oxygenation perfusion, To improve health of tissue, To decrease soft tissue restriction Thank you for the opportunity to evaluate your patient. For Medicare and Medicare HMO plans, please review the plan of care and approve it. It will need to be FAXED BACK to us at [phone] for Medicare purposes. For Medicare only, by signing this I certify the plan of care. Please let me know if there are questions or concerns regarding this plan of care. Physician Signature: Date:
--- NOTE | 2020-05-12 16:28 | HP.PTDCSUM ---
It has been my pleasure to treat DADA ANGULO referred by JORDY DUMONT, with the diagnosis of S/P LUMBAR LAMINECTOMY ,LEG PAIN LEFT for a total of 15 visit(s). Discharge Date: 05/12/20 Please see the following information for a summary of their discharge status. Subjective: Doing well .. no pain. Left Back Pain Intensity (Out of 10): 0 Left Lower Extremity Pain Intensity (Out of 10): 0 % Improvement: 95 Objective/Function: POSTURE: mild foward posture. GAIT: reciprocal pattern. MMT: 5/5. LUMBAR ROM: WFL FLEXION,EXTESNIO MIn LOSS ,SIDE GLIDES WFL. MMT: 4/5 Goal 1:: Patient to be I with HEP. Goal Progress: Goal Met Goal 2:: Patient to improve posture /body mechanics Goal Progress: Goal Met Goal 3:: Patient improve lumbar ROM for function of recovery Goal Progress: Goal Met Goal 4:: Patient to decrease episode of lumbar and leg symptoms by 75% or > to improve function QOL. Goal Progress: Goal Met Goal 5:: Patient improve back owestry score by 5 points or > to improve function and QOL. Goal Progress: Goal Met Plan: D/C TO HEP Discharge Comments: HEP If there are questions or concerns regarding this patient's physical therapy, please feel free to call me at [phone]. Thank you for the referral of this patient. Sincerely, Vivek Kaplan, PT, Cert MDT, OCS
== END 2020-05-12 19:00 | disposition home or self-care (01) ==
LOC: PT 16:00
PROVIDERS: PCP Family Medicine
DX: M79.605 Pain in left leg (principal); Z98.890 Other specified postprocedural states
CPT/HCPCS: 97014; 97110; 97162; 97530; G0283

== ENCOUNTER 2021-02-11 10:25 | Observation (INO) | payer OTHER, SELFPAY ==
[2019-04-01 08:51] VITALS: BMI 38.3
[2021-02-11] VITALS (10 sets, daily range): BP systolic 123–178; BP diastolic 78–101; PULSE 75–109; RESP 12–18; TEMP 36.2–37.4; O2SAT 97–100; BMI 40.1; BMI 39.1
--- NOTE | 2021-02-11 10:42 | EKG12_ITS ---
Test Reason : CP Blood Pressure : / mmHG Vent. Rate : 099 BPM Atrial Rate : 099 BPM P-R Int : 178 ms QRS Dur : 076 ms QT Int : 352 ms P-R-T Axes : 055 027 022 degrees QTc Int : 451 ms Normal sinus rhythm Normal ECG Confirmed by MOHINDER STAFFORD, JUDE ([id number]), video news editor AMADOU TAI ([id number]) on 02/15/2021 10:10:47 A M Referred By: RANDY Confirmed By:REJI VINES MD
[2021-02-11] MEDS: Aspirin 81 MG TAB.CHEW 324 MG PO (10:49)
--- NOTE | 2021-02-11 10:50 | RAD_ITS ---
STUDY: X-RAY CHEST REASON FOR EXAM: Female, 35 years old. Substernal chest pain TECHNIQUE: Single AP portable view of the chest. COMPARISON: 2014 FINDINGS: EKG leads overlie the chest The lungs are clear and expanded. There is no demonstrated pleural abnormality. Normal size heart. Normal mediastinum and tacho. Normal visualized pulmonary arteries. Normal visualized aortic arch and descending thoracic aorta. Normal visualized thoracic spine. Normal visualized ribs, clavicles, and shoulders. There is no demonstrated abnormality of the visualized soft tissue structures of the upper abdomen. RAD/Chest 1 View (Portable) IMPRESSION: Normal x-ray examination of the chest. Electronically Signed: Eligio Horn MD at 11:26 EDT , Service support ,
--- NOTE | 2021-02-11 11:00 | ED.VIS.CHEST ---
HPI History of Present Illness Chief Complaint: Chest Pain Informant: patient Narrative Narrative: 35-year-old female presenting with chest pain. Patient states this started this morning while at rest. She complains of midsternal chest pain radiating to her left arm. She has associated lightheadedness and diaphoresis. She denies shortness of breath. Denies nausea or vomiting. She states at worst it was 5 out of 10, currently 3 out of 10. CVD Risk Factors: Positive for Hypertension PE Risk Factors: Negative for Recent Travel/Surgery, Recent Immobilization, Prior DVT or PE, Cancer and OCP + Smoking + >/=35 PFSH [facility] Medical History (Updated 02/11/21 @ 11:[address] Deepa Simental MD) Back ache Hypertension Home Medications lisinopril 5 mg PO DAILY 07/05/16 [History Last Taken 03/30/19 09:00] Allergy/AdvReac Type Severity Reaction Status Date / Time clindamycin Allergy Hives Verified 02/11/21 11:37 ketorolac [From Toradol] Allergy Hives Verified 02/11/21 11:37 ondansetron Allergy Hives Verified 02/11/21 11:37 [From Zofran (as hydrochloride)] Surgical History (Updated 02/11/21 @ 10:32 by Mary Mcfarlane) History of discectomy Hx of tonsillectomy Social History Smoking Status: Never smoker ROS ROS ED Constitutional Constitutional ED: Denies fever(s) Eyes Eyes: Denies change in vision ENT ENT ED: Denies rhinorrhea or sore throat Cardiovascular Cardiovascular: Reports chest pain; Denies palpitations Respiratory/Chest Respiratory/Chest: Denies cough or dyspnea Gastrointestinal Gastrointestinal: Denies abdominal pain, diarrhea, nausea or vomiting Genitourinary Genitourinary ED: Denies dysuria Musculoskeletal Musculoskeletal: Denies myalgias Integumentary Denies rash Neurologic Neurologic: Denies headache(s) Psychiatric Psychiatric: Denies suicidal thoughts EXAM Physical Exam Const Vital Signs: 02/11/21 10:26 02/11/21 10:31 02/11/21 10:44 Temperature 97.1 F L Temperature Source Temporal Pulse Rate 109 H Respiratory Rate 17 Respiratory Effort Normal Non-Labored Blood Pressure 178/101 H 159/98 H Blood Pressure Mean 126 118 Pulse Ox 99 97 Oxygen Delivery Method Room Air Room Air Positive well nourished and well developed General Appearance ED: well developed HEENT Reports normocephalic and head/scalp atraumatic Eyes PERRL and EOMs intact bilaterally Neck supple General: Negative for tenderness Chest Wall inspection of chest normal Resp normal respiratory effort and clear to auscultation bilaterally Cardio regular rate and regular rhythm GI non-tender and non-distended Palpation: soft; Negative for guarding or rebound tenderness present no CVA tenderness Extremity normal to inspection Neuro oriented x3 Sensorium / Orientation: alert Psych mental status grossly normal Heart Score History: Moderately Suspicious ECG: Normal Age: </= 45 years Risk Factors: 1 or 2 Risk Factors Score: 2 MDM MDM MDM Narrative Medical decision making narrative: Patient was given aspirin. She is resting comfortably on reevaluation. She currently does not have a primary care physician because her primary care physician recently retired. Will discuss with hospitalist for observation. Lab Data Attestation: I reviewed the patient's lab results. Labs: Laboratory Results - last 24 hr 02/11/21 02/11/21 02/11/21 10:25 10:25 10:25 WBC 10.6 RBC 5.21 Hgb 14.2 Hct 43.8 MCV 84.1 MCH 27.3 MCHC 32.4 RDW Std Deviation 39.1 RDW Coeff of Monalisa 12.8 Plt Count 474 H MPV 9.9 Immature Gran % (Auto) 0.300 Neut % (Auto) 52.2 Lymph % (Auto) 38.3 [place] % (Auto) 7.4 Eos % (Auto) 1.2 Baso % (Auto) 0.6 Absolute Neuts (auto) 5.5 Absolute Lymphs (auto) 4.06 Nucleated RBC % 0 D-Dimer Quant (PE/DVT) <= 0.27 Sodium 138 Potassium 3.6 Chloride 103 Carbon Dioxide 28.0 Anion Gap 7 BUN 18 Creatinine 0.81 Estim Creat Clear Calc 86.40 Est GFR (MDRD) Af Amer 102 Est GFR (MDRD) Non-Af 85 BUN/Creatinine Ratio 22.2 H Glucose 101 Calcium 9.7 Troponin I < 0.015 Radiography Chest X-Ray - ED: 1 View, Read by ED Physician and Read by Radiologist Diagnostic Testing: Radiology Impression Chest X-Ray 02/11/21 10:50 IMPRESSION: Normal x-ray examination of the chest. Electronically Signed: Eligio Horn MD at 11:26 EDT , Service support , EKG Initial EKG: Attestation: I personally reviewed and interpreted this EKG as follows: Interpretation: Sinus Rhythm and No Acute Injury Pattern Prior EKG tracings: not available for review Discharge Plan Triage Chief Complaint: Chest Pain ED Provider: Deepa Simental Dx/Rx/DC Orders Clinical Impression: Chest pain Prescriptions: No Action lisinopril 5 MG tablet 5 mg PO DAILY RF: 0 Primary Care Provider: Care Physician,No Primary Referrals: Care Physician,No Primary [Primary Care Provider] - Disposition Disposition: Acute Care Hospital [facility]
[2021-02-11 11:12] LABS: Absolute Lymphocyte Count 4.06 X10^3/uL (0.83-4.51); Absolute Neutrophil Count 5.5 X10^3/uL (2.0-7.7); Basophil# 0.06 X10^3/uL; Basophil% 0.6 % (0-1); Eosinophil# 0.13 X10^3/uL; Eosinophils% 1.2 % (0-5); Hematocrit 43.8 % (37-47); Hemoglobin 14.2 g/dL (12.0-15.0); Lymphocyte # 4.06 X10^3/ul (0.83-4.51); Lymphocyte % 38.3 % (19-41); Mean Corp Hgb Conc 32.4 g/dL (32-36); Mean Corpuscular Hgb 27.3 pg (27.0-32.0); Mean Corpuscular Volume 84.1 fL (81-99); Mean Platelet Vol. 9.9 fl (6.2-12.0); Monocyte# 0.78 X10^3/uL; Monocyte% 7.4 % (0-10); NRBC Flagged by Analyzer 0 % (0-5); Neutrophil # 5.53 X10^3/uL (2.7-7.7); Neutrophil % 52.2 % (47-70); Platelet Count 474 K/mm3 (150-450); RBC Distribution Width CV 12.8 % (11.6-14.6); RBC Distribution Width SD 39.1 fl (35.1-43.9); Red Blood Count 5.21 M/mm3 (4.2-5.4); White Blood Count 10.6 K/mm3 (4.4-11.0)
[2021-02-11 11:27] LABS: Anion Gap 7 (5-15); BUN 18 mg/dL (7-18); BUN/Creat Ratio 22.2 RATIO (10-20); Calcium,Total 9.7 mg/dL (8.5-10.1); Chloride 103 mmol/L (98-107); Creatinine, Serum 0.81 mg/dL (0.55-1.02); EST Glomerular Filtration Rate 85 mL/min (>60); Est Glom Filt Rate - Afr Amer 102 mL/min (>60); Glucose 101 mg/dL (74-106); Potassium 3.6 mmol/L (3.5-5.1); Sodium Level 138 mmol/L (136-145)
[2021-02-11 11:29] LABS: D-Dimer Quantitative (DVT/PE) <= 0.27 FEU/ug/m (0.27-0.49)
--- NOTE | 2021-02-11 11:54 | HP.PCM.HOS_ITS ---
[facility] - General General Date of Admission: 02/11/21 Chief Complaint: Chest discomfort [facility] Narrative DADA ANGULO, is a 35 F with past medical history segment for essential hypertension presenting with chest discomfort. Patient symptoms started while at work on the morning of his presentation. He did develop sudden onset of chest discomfort with numbness and tingling sensation involving both arms. She later developed localized discomfort involving the left arm. She was found to be tachycardic with elevated blood pressure in the office. She was sent to the ED initial set of cardiac enzymes and EKG came back negative admitted to monitored bed for further evaluation [facility] Medical History (Updated 02/11/21 @ 12:[address] Mustapha Arriaga MD) Back ache Hypertension Obesity, Class III, BMI 40-49.9 (morbid obesity) Home Medications lisinopril 5 mg PO DAILY 07/05/16 [History Last Taken 03/30/19 09:00] Allergy/AdvReac Type Severity Reaction Status Date / Time clindamycin Allergy Hives Verified 02/11/21 11:37 ketorolac [From Toradol] Allergy Hives Verified 02/11/21 11:37 ondansetron Allergy Hives Verified 02/11/21 11:37 [From Zofran (as hydrochloride)] Family History Father No problems noted. Mother No problems noted. no significant family history Surgical History (Updated 02/11/21 @ 10:32 by Mary Mcfarlane) History of discectomy Hx of tonsillectomy Social History Smoking Status: Never smoker ROS Constitutional Constitutional: Denies chills, fever(s) or weight loss Eyes Eyes: Denies change in vision, diplopia or discharge from eye(s) ENT HEENT: Denies dysphagia, epistaxis, nasal discharge or sore throat Cardiovascular Cardiovascular: Reports chest pain and lightheadedness; Denies palpitations Respiratory/Chest Respiratory/Chest: Denies cough, dyspnea or wheezing Gastrointestinal Gastrointestinal: Denies abdominal pain, diarrhea, nausea or vomiting Genitourinary Genitourinary: Denies burning urination, flank pain or hematuria Musculoskeletal Musculoskeletal: Denies arthralgias, joint pain or myalgias Integumentary Integumentary: Denies erythema or jaundice Neurologic Neurologic: Denies abnormal gait, focal weakness, seizures or vertigo Psychiatric Psychiatric: Denies hallucinations, homicidal ideation or suicidal ideation Endocrine Endocrinology: Denies cold intolerance, excessive sweating or polydipsia Hematologic/Lymphatic Hematologic/Lymphatic: Denies easy bleeding or easy bruising Allergic/Immunologic Allergic/Immunologic: Denies itchy eyes, rhinitis or hives Vital Signs Vital Signs Vital Signs: 02/11/21 10:26 02/11/21 10:31 02/11/21 10:44 Temperature 97.1 F L Temperature Source Temporal Pulse Rate 109 H Respiratory Rate 17 Respiratory Effort Normal Non-Labored Blood Pressure 178/101 H 159/98 H Blood Pressure Mean 126 118 Pulse Ox 99 97 Oxygen Delivery Method Room Air Room Air Physical Exam Const no apparent distress General Appearance: cooperative and well kempt Nutritional Appearance: obese HEENT head/scalp atraumatic, moist oral mucous membranes and dentition normal Eyes conjunctivae normal, no scleral icterus and no papilledema Neck No nuchal rigidity, no lymphadenopathy and thyroid normal Lymph Lymphatic: no lymphadenopathy noted Resp no use of accessory muscles Effort and Inspection: symmetric chest movement; Negative for tracheal deviation Auscultation: diminished lung sounds Cardio regular rate, regular rhythm, no gallops and no clicks GI normal to inspection, nondistended, normoactive bowel sounds and non-tender no CVA tenderness Extremity no calf tenderness and no pedal edema General Extremity: Negative for clubbing or cyanosis Skin no jaundice, no petechiae and no mottling Neuro moves all extremities and no focal motor deficits Psych cooperative and affect normal Appearance: grossly normal Attitude: engaged Lab / Micro Data Result Diagrams: 02/11/21 10:25 02/11/21 10:25 Labs: Laboratory Results - last 24 hr 02/11/21 02/11/21 02/11/21 10:25 10:25 10:25 WBC 10.6 RBC 5.21 Hgb 14.2 Hct 43.8 MCV 84.1 MCH 27.3 MCHC 32.4 RDW Std Deviation 39.1 RDW Coeff of Monalisa 12.8 Plt Count 474 H MPV 9.9 Immature Gran % (Auto) 0.300 Neut % (Auto) 52.2 Lymph % (Auto) 38.3 [place] % (Auto) 7.4 Eos % (Auto) 1.2 Baso % (Auto) 0.6 Absolute Neuts (auto) 5.5 Absolute Lymphs (auto) 4.06 Nucleated RBC % 0 D-Dimer Quant (PE/DVT) <= 0.27 Sodium 138 Potassium 3.6 Chloride 103 Carbon Dioxide 28.0 Anion Gap 7 BUN 18 Creatinine 0.81 Estim Creat Clear Calc 86.40 Est GFR (MDRD) Af Amer 102 Est GFR (MDRD) Non-Af 85 BUN/Creatinine Ratio 22.2 H Glucose 101 Calcium 9.7 Troponin I < 0.015 Radiology Impression Chest X-Ray 02/11/21 10:50 IMPRESSION: Normal x-ray examination of the chest. Electronically Signed: Eligio Horn MD at 11:26 EDT , Service support , Assessment & Plan Assessment/Plan (1) Chest pain: (2) Hypertension: (3) Obesity, Class III, BMI 40-49.9 (morbid obesity): PLAN: Patient is a 35-year-old female presented with chest pain 1. Chest Pain: Placed on a monitored bed; rule out for Myocardial infarction with serial cardiac enzymes and EKGs. If negative, rule out Myocardial Ischemia with nuclear medicine stress test. 2. Essential hypertension ?Patient is on lisinopril blood pressure no well-controlled plan is to adjust doses if needed 3. Morbid obesity - With a BMI of 40.2 patient was counseled on weight reduction 4. DVT prophylaxis - On enoxaparin Visit Charges OBSV E&M: 84180 Initial observation care L2
--- NOTE | 2021-02-11 11:57 | NURSING ---
PCU OBS SILVA BACON
--- NOTE | 2021-02-11 12:16 | CM.ED ---
FARHAT Note: SW Referral Reason: No PCP Referral Source: Case Find SW reviewed ED tracker and noted that patient does not have a PCP. SW met with her and she reports her PCP, Dr. Guille Pavon, retired January 27. SW provided patient with list of PCP in [facility] and patient is also aware of how to access her providers on her insurance web site. No further SW needs or issues at this time. Maria Teresa LOVE
--- NOTE | 2021-02-11 13:48 | EKG12_ITS ---
Test Reason : UPDATE Blood Pressure : / mmHG Vent. Rate : 067 BPM Atrial Rate : 067 BPM P-R Int : 148 ms QRS Dur : 070 ms QT Int : 390 ms P-R-T Axes : 026 016 008 degrees QTc Int : 412 ms Normal sinus rhythm Normal ECG Confirmed by GERNOIMO STAFFORD, CLAUDIA ([id number]), marketing editor AMADOU TAI ([id number]) on 02/16/2021 9:55:28 AM Referred By: SILVA Confirmed By:CLAUDIA MELTON MD
--- NOTE | 2021-02-11 13:48 | ECHOCS_ITS ---
Reason For Study: Chest Pain Procedure This was a 2D Doppler, Color Flow transthoracic echocardiogram. The study was technically difficult. Contrast injection was performed. Exam performed portable in patient room. Left Ventricle Normal LV size. The estimated ejection fraction is 60 %. No evidence for diastolic dysfunction. No regional wall motion abnormalities noted. Right Ventricle Normal RV size. Normal systolic function. Atria Normal left atrium. Normal right atrium. No doppler evidence for ASD. Mitral Valve There is no mitral valve stenosis. No mitral valve insufficiency. Tricuspid Valve There is no tricuspid stenosis. No tricuspid valve insufficiency. Aortic Valve Trisinus/trileaflet aortic valve. There is no aortic stenosis. No aortic valve insufficiency. Pulmonic Valve There is no pulmonic valvular stenosis. No pulmonic valve insufficiency. Great Vessels Normal aortic root. Pericardium/Pleural No pericardial effusion. Medication Diluted definity 2ml given slow IV push to enhance endocardial definition. MMode/2D Measurements & Calculations LVIDd: 4.3 cm IVSd: 0.82 cm LA dimension: 2.9 cm LVIDs: 2.8 cm LVPWd: 0.87 cm RVDd: 3.4 cm FS: 35.1 % LAV(MOD-bp): 31.1 ml LA A4 area: 13.1 cm2 RA A4 area: 11.6 cm2 LAV(MOD-bp) Indexed: 14.7 ml/m2 LAV(MOD-sp2): 28.3 ml LAV(MOD-sp4): 28.9 ml Time Measurements MV dec time: 0.24 sec Doppler Measurements & Calculations MV E max kevin: 115.0 cm/sec Lat Peak E' Kevin: 19.7 cm/sec Med Peak E' Kevin: 11.7 cm/sec MV A max kevin: 84.7 cm/sec E/E' lat: 5.8 E/E' med: 9.8 MV E/A: 1.4 MV V2 max: 124.9 cm/sec MV P1/2t max kevin: 124.9 cm/sec Ao V2 max: 135.5 cm/sec MV max P.2 mmHg MV P1/2t: 67.1 msec Ao max P.3 mmHg MV V2 mean: 61.6 cm/sec MV dec slope: 545.0 cm/sec2 MV mean P.9 mmHg MV V2 VTI: 32.5 cm MVA(P1/2t): 3.3 cm2 LV V1 max: 117.6 cm/sec PA V2 max: 114.6 cm/sec LV V1 max P.5 mmHg ECHO/Echo Complete W/ Contrast Interpretation Summary The estimated ejection fraction is 60 %. No evidence for diastolic dysfunction. Contrast injection was performed. The study was technically difficult. Ordering Physician: Mustapha Arriaga Referring Physician: no PCP noted Performed By: Isak Rivera RCS
[2021-02-11] MEDS: Enoxaparin 40 MG/0.4 ML Syringe SC ×2 (15:00→22:05)
[2021-02-11] MEDS: Acetaminophen 325 MG Tablet 650 MG PO (20:58)
[2021-02-12 02:58] VITALS: BP 134/83; PULSE 69; RESP 16; TEMP 36.5; O2SAT 98
[2021-02-12 03:01] VITALS: PULSE 76
--- NOTE | 2021-02-12 05:55 | EKG12_ITS ---
Test Reason : AM EKG Blood Pressure : / mmHG Vent. Rate : 079 BPM Atrial Rate : 079 BPM P-R Int : 158 ms QRS Dur : 074 ms QT Int : 402 ms P-R-T Axes : 044 041 032 degrees QTc Int : 460 ms Normal sinus rhythm with sinus arrhythmia Normal ECG Confirmed by GERONIMO STAFFORD, CLAUDIA ([id number]), editor school photograph AMADOU TAI ([id number]) on 02/16/2021 9:48:46 AM Referred By: SILVA Confirmed By:CLAUDIA MELTON MD
[2021-02-12 06:40] LABS: Absolute Lymphocyte Count 2.83 X10^3/uL (0.83-4.51); Absolute Neutrophil Count 5.4 X10^3/uL (2.0-7.7); Basophil# 0.05 X10^3/uL; Basophil% 0.5 % (0-1); Eosinophil# 0.22 X10^3/uL; Eosinophils% 2.4 % (0-5); Hematocrit 39.2 % (37-47); Hemoglobin 12.6 g/dL (12.0-15.0); Lymphocyte # 2.83 X10^3/ul (0.83-4.51); Lymphocyte % 30.3 % (19-41); Mean Corp Hgb Conc 32.1 g/dL (32-36); Mean Corpuscular Hgb 26.8 pg (27.0-32.0); Mean Corpuscular Volume 83.2 fL (81-99); Mean Platelet Vol. 9.7 fl (6.2-12.0); Monocyte# 0.79 X10^3/uL; Monocyte% 8.5 % (0-10); NRBC Flagged by Analyzer 0 % (0-5); Neutrophil # 5.44 X10^3/uL (2.7-7.7); Neutrophil % 58.2 % (47-70); Platelet Count 383 K/mm3 (150-450); Red Blood Count 4.71 M/mm3 (4.2-5.4); White Blood Count 9.3 K/mm3 (4.4-11.0)
[2021-02-12 06:42] VITALS: BP 107/70; PULSE 78; RESP 16; TEMP 37; O2SAT 99
[2021-02-12] MEDS: Lisinopril 5 MG Tablet PO (06:52)
[2021-02-12 07:02] VITALS: PULSE 84
[2021-02-12 07:12] LABS: Anion Gap 8 (5-15); BUN 15 mg/dL (7-18); BUN/Creat Ratio 20.5 RATIO (10-20); Calcium,Total 8.8 mg/dL (8.5-10.1); Chloride 103 mmol/L (98-107); Creatinine, Serum 0.73 mg/dL (0.55-1.02); EST Glomerular Filtration Rate 95 mL/min (>60); Est Glom Filt Rate - Afr Amer 115 mL/min (>60); Estimated Creatinine Clearance 95.87 ml/min; Glucose 91 mg/dL (74-106); Potassium 3.9 mmol/L (3.5-5.1); Sodium Level 138 mmol/L (136-145)
[2021-02-12 12:11] VITALS: BP 123/82; PULSE 82; RESP 18; TEMP 36.6; O2SAT 99
--- NOTE | 2021-02-12 12:20 | STRESSREP_ITS ---
Stress Test Report Date: 02/12/2021 Procedure: Exercise tolerance test/imaging study Indications: Chest pain Consent: Per the patient Procedure: The patient exercised on a Freddy protocol for 6 minutes 22 seconds achieving a peak heart rate of 176 bpm (95% predicted maximal heart rate) with a peak blood pressure 188/76 mmHg and a peak MET capacity of 7.5 METs. The baseline ECG demonstrated normal sinus rhythm. The peak exercise ECG demonstrated sinus tachycardia with no significant ischemic changes. EKG during recovery revealed no significant ischemic changes [There were no cardiac dysrhythmias pretest, during exercise, or recovery]. The functional capacity was considered normal for age. There was [no complaint of chest discomfort during exercise or recovery]. The examination was discontinued secondary to leg discomfort. Impression: 1. Technically adequate (percent predicted maximal heart rate greater than 85%) exercise tolerance test 2. Stress test is negative for exercise-induced EKG changes of ischemia 3. The test test is is negative for exercise-induced chest pain 4. Functional capacity is normal for age 5. Nuclear images pending Myocardial perfusion imaging study: Technique: The patient was injected with 15 mCi of technetium 99m Cardiolite and subsequently rest SPECT Cardiolite nuclear imaging was obtained in the horizontal long, vertical long, and short axis views. The patient exercised on a Freddy protocol. Please see above for details. The patient was injected with 45 mCi of technetium 99m Cardiolite and subsequently stress SPECT Cardiolite nuclear imaging was obtained in the horizontal long, vertical long, and short axis views. A gated Cardiolite study at peak stress was obtained. Interpretation: Rest and stress SPECT Cardiolite nuclear imaging status post realignment, normalization, and attenuation correction, demonstrates overall normal myocardial radioisotope uptake. The gated Cardiolite study demonstrates no significant regional wall motion abnormalities. The reported LVEF is greater than 70%. Impression: 1. There is no evidence of significant ischemia or infarction. 2. The gated Cardiolite study reports an LVEF of greater than 70%. This note was generated with [employer] software. It may contain incorrect words, spelling, and punctuation that were not noted in checking the note before signing.
--- NOTE | 2021-02-12 13:36 | DS.PCM_ITS ---
Providers Date of Admission: 02/11/21 Primary Care Physician: Kacy Primary Care Phys Reason For Visit: CHEST PAIN Diagnosis Discharge Diagnosis (1) Chest pain: Status: Acute Code(s): R07.9 - Chest pain, unspecified (2) Hypertension: Status: Chronic Code(s): I10 - Essential (primary) hypertension (3) Obesity, Class III, BMI 40-49.9 (morbid obesity): Status: Acute Code(s): E66.01 - Morbid (severe) obesity due to excess calories Medications at Discharge Home Medications lisinopril 5 mg PO DAILY 07/05/16 Hospital Course Procedures 2-D Echocardiogram and Nuclear stress test Summary of Care Provided Minutes Spent on Discharge: 35 Hospital Course: ? Patient is a 35-year-old female presented with chest pain 1.? Chest Pain:? Placed on a monitored bed; patient was placed on a monitored bed CO was ruled out with serial cardiac enzymes. 2D echo ordered as part of her evaluation was unremarkable. Subsequently underwent a nuclear stress test which was negative for stress-induced ischemia 2.? Essential hypertension ?Patient is on lisinopril blood pressure no well-controlled plan is to adjust doses if needed 3.? Morbid obesity - With a BMI of 40.2 patient was counseled on weight reduction 4.? DVT prophylaxis - On enoxaparin Physical Exam Narrative GENERAL: cooperative HEENT: Atraumatic; EYES; Anicteric, Normal Conjunctiva NECK; supple, normal thyroid, RESPIRATORY: Diminished to auscultation CARDIOVASCULAR: Regular S1 S2, GI: soft, normoactive bowel sounds, : No Renal angle tenderness; EXTREMITIES: No edema, no clubbing, MUSCULOSKELETAL: no muscle waisting NEURO: Awake; no lateralizing signs. SKIN: No Rash PSYCH; Flat affect ABG / Lab / Microbiology Data Result Diagrams: 02/12/21 05:24 02/12/21 05:24 Laboratory: Laboratory Results - last 24 hr 02/11/21 02/11/21 02/11/21 15:07 17:38 20:15 WBC RBC Hgb Hct MCV MCH MCHC RDW Std Deviation RDW Coeff of Monalisa Plt Count MPV Immature Gran % (Auto) Neut % (Auto) Lymph % (Auto) [place] % (Auto) Eos % (Auto) Baso % (Auto) Absolute Neuts (auto) Absolute Lymphs (auto) Nucleated RBC % Sodium Potassium Chloride Carbon Dioxide Anion Gap BUN Creatinine Estim Creat Clear Calc Est GFR (MDRD) Af Amer Est GFR (MDRD) Non-Af BUN/Creatinine Ratio Glucose Calcium Magnesium Troponin I < 0.015 < 0.015 < 0.015 02/12/21 02/12/21 05:24 05:24 WBC 9.3 RBC 4.71 Hgb 12.6 Hct 39.2 MCV 83.2 MCH 26.8 L MCHC 32.1 RDW Std Deviation 39.0 RDW Coeff of Monalisa 13.0 Plt Count 383 MPV 9.7 Immature Gran % (Auto) 0.100 Neut % (Auto) 58.2 Lymph % (Auto) 30.3 [place] % (Auto) 8.5 Eos % (Auto) 2.4 Baso % (Auto) 0.5 Absolute Neuts (auto) 5.4 Absolute Lymphs (auto) 2.83 Nucleated RBC % 0 Sodium 138 Potassium 3.9 Chloride 103 Carbon Dioxide 27.0 Anion Gap 8 BUN 15 Creatinine 0.73 Estim Creat Clear Calc 95.87 Est GFR (MDRD) Af Amer 115 Est GFR (MDRD) Non-Af 95 BUN/Creatinine Ratio 20.5 H Glucose 91 Calcium 8.8 Magnesium 2.0 Troponin I Radiography Diagnostic Testing: Radiology Impression Echocardiogram 02/11/21 13:48 Interpretation Summary The estimated ejection fraction is 60 %. No evidence for diastolic dysfunction. Contrast injection was performed. The study was technically difficult. Ordering Physician: Mustapha Arriaga Referring Physician: no PCP noted Performed By: Isak Rivera RCS D/C Instructions Discharge Diet: No restrictions Discharge Activity: Return to Normal Activity Call your doctor if you observe: Fever of 101 or Higher, Shortness of breath, Fainting spells and Chest pain Meaningful Use Info Meaningful Use Diagnoses (Choose all that apply): None applicable Discharge Plan Admission Admit Date/Time: 02/11/21 11:58 Primary Reason for Your Visit: chest pain Attending Provider: Mustapha Arriaga Primary Care Provider: Care Physician,No Primary Instructions Patient Instructions: ED Chest Pain, Noncardiac Discharge Orders/Prescriptions Prescriptions: No Action lisinopril 5 MG tablet 5 mg PO DAILY RF: 0 Referrals / Follow Up: Care Physician,No Primary [Primary Care Provider] - Within 2 Weeks Disposition Disposition (needs filled in before D/C Order can be placed): Home, self care Visit Charges OBSV E&M: 85687 Observation care discharge
--- NOTE | 2021-02-12 13:49 | PCM.DC ---
Discharge Instructions Diet Discharge Diet: No restrictions Activity Discharge Activity: Return to Normal Activity Dressing / Incision Call your doctor if you observe: Fever of 101 or Higher, Shortness of breath, Fainting spells and Chest pain Follow Up Care Test Results: Test results from this visit will be discussed in further detail at your follow-up appointment, if applicable. Discharge Plan Admission Admit Date/Time: 02/11/21 11:58 Primary Reason for Your Visit: chest pain Attending Provider: Mustapha Arriaga Primary Care Provider: Care Physician,No Primary Instructions Patient Instructions: ED Chest Pain, Noncardiac Discharge Orders/Prescriptions Prescriptions: No Action lisinopril 5 MG tablet 5 mg PO DAILY RF: 0 Referrals / Follow Up: Care Physician,No Primary [Primary Care Provider] - Within 2 Weeks Disposition Disposition (needs filled in before D/C Order can be placed): Home, self care
== END 2021-02-12 13:37 | disposition home or self-care (01) ==
LOC: ED 11:58 → PCU 12:23
PROVIDERS: Admitting Provider Internal Medicine; Emergency Provider Emergency Medicine; Visit Provider Internal Medicine
DX: R07.89 Other chest pain (principal); R42 Dizziness and giddiness; I10 Essential (primary) hypertension; Z79.899 Other long term (current) drug therapy; E66.01 Morbid (severe) obesity due to excess calories; Z68.41 Body mass index [BMI] 40.0-44.9, adult
CPT/HCPCS: 36415; 71045; 78452; 80048; 83735; 84484; 85025; 85379; 93005; 93017; 93306; 96372; 99218; 99285; A9500; Q9957; A4216; C8929; G0378; J2405

== ENCOUNTER → 2021-03-30 11:52 | Outpatient (CLI) | payer OTHER, SELFPAY ==
[2021-03-01 13:27] VITALS: BMI 39.4
[2021-03-30 15:30] LABS: ALB/GLOB Ratio 0.9 RATIO (0.9-2.4); AST(SGOT) 13 U/L (15-37); Alanine Aminotransfer ALT/SGPT 21 U/L (13-56); Albumin, Serum 3.5 g/dL (3.2-5.0); Alkaline Phosphatase 49 U/L (45-117); Anion Gap 7 (5-15); BUN 17 mg/dL (7-18); BUN/Creat Ratio 23.9 RATIO (10-20); Calcium,Total 8.8 mg/dL (8.5-10.1); Chloride 104 mmol/L (98-107); Creatinine, Serum 0.71 mg/dL (0.55-1.02); EST Glomerular Filtration Rate 98 mL/min (>60); Est Glom Filt Rate - Afr Amer 119 mL/min (>60); Globulin 4.1 g/dL (2.2-4.2); Glucose 103 mg/dL (74-106); Potassium 3.8 mmol/L (3.5-5.1); Protein, Total 7.6 g/dL (6.4-8.2); Sodium Level 139 mmol/L (136-145)
[2021-04-01 16:09] LABS: ANTINUCLEAR ANTIBODIES DIRECT Positive (Negative); Anti-Centromere B Ab <0.2 AI (0.0-0.9); Anti-Chromatin 0.7 AI (0.0-0.9); Anti-Jo <0.2 AI (0.0-0.9); Anti-Scleroderma-70 AB <0.2 AI (0.0-0.9); RNP Ab 1.4 AI (0.0-0.9); SJOGREN'S Anti-SS-A test < 0.2 AI (0.0-0.9); SJOGREN'S Anti-SS-B test < 0.2 AI (0.0-0.9); Smith Ab <0.2 AI (0.0-0.9)
[2021-04-01 18:48] LABS: Anti-dsDNA Ab <1 IU/mL (0-9)
== END ==
PROVIDERS: Referring Provider Internal Medicine; Visit Provider Internal Medicine
DX: R76.8 Other specified abnormal immunological findings in serum (principal); I10 Essential (primary) hypertension
CPT/HCPCS: 36415; 80053; 86038; 86225; 86235

== ENCOUNTER → 2021-04-15 11:44 | Outpatient (CLI) | payer OTHER, SELFPAY ==
[2021-04-04 15:07] VITALS: BMI 39.4
[2021-04-19 20:08] LABS: Metanephrine, Ur 120 ug/L (Undefined); Normetanephrines, 24Ur 362 ug/24 hr (131-612); Normetanephrines, Ur 517 ug/L (Undefined)
[2021-04-19 21:27] LABS: Metanephrines, 24Ur 84 ug/24 hr (36-209)
== END ==
PROVIDERS: PCP Internal Medicine; Referring Provider Internal Medicine; Visit Provider Internal Medicine
DX: I10 Essential (primary) hypertension (principal)
CPT/HCPCS: 81050; 83835

== ENCOUNTER → 2021-04-21 12:32 | Outpatient (CLI) | payer OTHER, SELFPAY ==
[2021-04-21 11:18] VITALS: BMI 39.4
[2021-04-21 13:52] LABS: NATERA MAILED SPECIMEN
== END ==
PROVIDERS: PCP Internal Medicine; Referring Provider Obstetrics & Gynecology; Visit Provider Obstetrics & Gynecology
DX: R10.2 Pelvic and perineal pain (principal); I10 Essential (primary) hypertension; R76.8 Other specified abnormal immunological findings in serum; Z80.3 Family history of malignant neoplasm of breast
CPT/HCPCS: 36415

== ENCOUNTER → 2021-05-10 13:29 | Outpatient (CLI) | payer OTHER, SELFPAY ==
[2021-04-21 11:18] VITALS: BMI 39.4
[2021-04-26 08:24] VITALS: BMI 39.4
--- NOTE | 2021-05-10 13:30 | BI_ITS ---
MAMMOGRAPHY - BILATERAL SCREENING REASON FOR EXAM: Female, 35 years old. Routine annual screening examination. PERTINENT HISTORY: Grandmother with breast cancer. Aunt with breast cancer. TECHNIQUE: Digital bilateral breast cathy (3D mammographic acquisition) in the CC and MLO projections. 2-D mediolateral oblique (MLO) and craniocaudad (CC) views of both breasts were obtained. CAD: Full Field Digital Mammography with Computer Added Detection was performed. COMPARISON: Comparison is made with prior study dated 02/27/2020. FINDINGS: Breast Composition: The breasts are heterogeneously dense, which may obscure small masses. There are no dominant masses or suspicious calcifications. Stable benign appearing bilateral axillary nodes. No other significant abnormalities are identified. There has been no significant change since the prior study. BI/SCRN MAMM (CAD)W/CATHY BILAT IMPRESSION: Stable bilateral screening mammogram. Yearly follow-up mammogram recommended. (A) ASSESSMENT CATEGORY: BIRADS Category 2: Benign. A letter regarding these results will be sent to the patient by the facility within 30 days. Approximately 10% of breast cancers are not detected by mammography. A normal mammogram should not delay biopsy of a clinically suspicious abnormality. [id number] Electronically Signed: Shay Short MD at 15:21 EDT , Service support ,
--- NOTE | 2021-05-10 13:30 | US_ITS ---
STUDY: ULTRASOUND OF THE FEMALE PELVIS - COMPLETE REASON FOR EXAM: Female, 35 years old. Pelvic pain LMP: 05/02/2021. TECHNIQUE: Transabdominal and Transvaginal TECHNICAL QUALITY: Adequate. COMPARISON: None. FINDINGS: The uterus is anteverted and is in a midline position. The uterus measures 10.4 cm x 5.6 cm x 4.7 cm. There is a Nabothian cyst of the cervix. The endometrium measures 12 mm in thickness, and is hyperechoic. There is no demonstrated endometrial mass. There is no demonstrated myometrial mass. I.U.D. - The patient does not have an I.U.D. The right ovary is visualized. The right ovary measures 3.2 cm x 3.3 cm x 2.2 cm. A dominant follicle is seen measuring 1.5 cm x 1.1 cm x 0.9 cm. There is no visualized right adnexal mass or complex lesion. There is normal arterial and normal venous vascularity. The left ovary is visualized. The left ovary measures 3.9 cm x 3 cm x 2.1 cm. A dominant follicle is seen measuring 1.9 cm x 1.6 cm x 0.8 cm. There is no visualized left adnexal mass or complex lesion. There is normal arterial and normal venous vascularity. There is no fluid in the cul-de-sac. US/Transvaginal Non- IMPRESSION: Bilateral ovarian follicles. Electronically Signed: Shay Short MD at 14:11 EDT , Service support ,
--- NOTE | 2021-05-10 13:30 | US_ITS ---
STUDY: ULTRASOUND OF THE FEMALE PELVIS - COMPLETE REASON FOR EXAM: Female, 35 years old. Pelvic pain LMP: 05/02/2021. TECHNIQUE: Transabdominal and Transvaginal TECHNICAL QUALITY: Adequate. COMPARISON: None. FINDINGS: The uterus is anteverted and is in a midline position. The uterus measures 10.4 cm x 5.6 cm x 4.7 cm. There is a Nabothian cyst of the cervix. The endometrium measures 12 mm in thickness, and is hyperechoic. There is no demonstrated endometrial mass. There is no demonstrated myometrial mass. I.U.D. - The patient does not have an I.U.D. The right ovary is visualized. The right ovary measures 3.2 cm x 3.3 cm x 2.2 cm. A dominant follicle is seen measuring 1.5 cm x 1.1 cm x 0.9 cm. There is no visualized right adnexal mass or complex lesion. There is normal arterial and normal venous vascularity. The left ovary is visualized. The left ovary measures 3.9 cm x 3 cm x 2.1 cm. A dominant follicle is seen measuring 1.9 cm x 1.6 cm x 0.8 cm. There is no visualized left adnexal mass or complex lesion. There is normal arterial and normal venous vascularity. There is no fluid in the cul-de-sac. US/Pelvic (Non ) IMPRESSION: Bilateral ovarian follicles. Electronically Signed: Shay Short MD at 14:11 EDT , Service support ,
== END ==
PROVIDERS: PCP Internal Medicine; Referring Provider Obstetrics & Gynecology; Visit Provider Obstetrics & Gynecology
DX: Z12.31 Encounter for screening mammogram for malignant neoplasm of breast (principal); Z80.3 Family history of malignant neoplasm of breast; R10.2 Pelvic and perineal pain
CPT/HCPCS: 76830; 76856; 77063; 77067; 93976

== ENCOUNTER → 2021-05-13 07:57 | Outpatient (CLI) | payer OTHER, SELFPAY ==
[2021-04-26 08:24] VITALS: BMI 39.4
--- NOTE | 2021-05-13 08:00 | US_ITS ---
STUDY: ABDOMINAL ULTRASOUND - RIGHT UPPER QUADRANT REASON FOR VISIT: Female, 35 years old RUQ Pain TECHNIQUE: Ultrasound evaluation of the right upper quadrant was performed with real-time and static chapa-scale imaging. TECHNICAL QUALITY: Adequate. COMPARISON: Comparison is made with prior examination dated 07/15/2013. FINDINGS: Liver: The liver measures 16.8 cm. There is increased echogenicity consistent with fatty infiltration. The bile ducts are within normal limits. There is hepatic color flow. The direction of portal flow is hepatopetal. There is no demonstrated mass lesion. Gallbladder: Normal distended gallbladder. The gallbladder wall measures 2.4 mm. There is a negative sonographic Staley''s sign. There is no pericholecystic fluid. There are no gallstones. Common Bile Duct (C.B.D.): The common bile duct measures 3.5 mm. Pancreas: Normal size of the head, body and tail of the pancreas. There is normal echogenicity of the pancreas. There is no demonstrated pancreatic mass or cyst. Right Kidney: Normal size of the right kidney. The right kidney measures 12.3 cm x 6.4 cm x 5.3 cm. Normal renal cortex. The right cortex measures 1.6 cm. There is no demonstrated renal mass or cyst. There is no right hydronephrosis. US/Abdomen Limited IMPRESSION: Fatty infiltration of the liver. Electronically Signed: Shay Short MD at 11:10 EDT , Service support ,
== END ==
PROVIDERS: PCP Internal Medicine; Referring Provider Internal Medicine; Visit Provider Internal Medicine
DX: R10.9 Unspecified abdominal pain (principal)
CPT/HCPCS: 76705

== ENCOUNTER → 2021-06-13 10:59 | Outpatient (CLI) | payer OTHER, SELFPAY | PROVIDERS: PCP Internal Medicine; Referring Provider Physician Assistant Surgical; Visit Provider Physician Assistant Surgical | DX: Z20.822 Contact with and (suspected) exposure to COVID-19 (principal) | CPT/HCPCS: 87635; U0005; U0003 ==

== ENCOUNTER → 2021-07-22 07:51 | Outpatient (CLI) | payer OTHER, SELFPAY ==
[2021-07-22 09:39] LABS: ALB/GLOB Ratio 0.8 RATIO (0.9-2.4); AST(SGOT) 13 U/L (15-37); Alanine Aminotransfer ALT/SGPT 22 U/L (13-56); Albumin, Serum 3.5 g/dL (3.2-5.0); Alkaline Phosphatase 47 U/L (45-117); Anion Gap 5 (5-15); BUN 21 mg/dL (7-18); BUN/Creat Ratio 24.9 RATIO (10-20); Calcium,Total 9.2 mg/dL (8.5-10.1); Chloride 103 mmol/L (98-107); Cholesterol 219 mg/dL (200); Creatinine, Serum 0.84 mg/dL (0.55-1.02); EST Glomerular Filtration Rate 81 mL/min (>60); Est Glom Filt Rate - Afr Amer 98 mL/min (>60); Globulin 4.3 g/dL (2.2-4.2); Glucose 87 mg/dL (74-106); High Density Lipoprotein 49 mg/dL; Potassium 3.7 mmol/L (3.5-5.1); Protein, Total 7.8 g/dL (6.4-8.2); Sodium Level 137 mmol/L (136-145); T4 Free Direct 0.93 ng/dL (0.76-1.46); Thyroid Stim Hormone (TSH) 0.33 uIU/mL (0.358-3.74); Triglycerides 175 mg/dL; Very Low Density Lipoprotein 35 mg/dL (5-40)
== END ==
LOC: LAB 07:54
PROVIDERS: PCP Internal Medicine; Referring Provider Internal Medicine; Visit Provider Internal Medicine
DX: I10 Essential (primary) hypertension (principal); R79.89 Other specified abnormal findings of blood chemistry
CPT/HCPCS: 36415; 80053; 80061; 84439; 84443

== ENCOUNTER 2021-10-03 15:32 | Outpatient (CLI) | payer OTHER, SELFPAY ==
[2021-10-03 17:25] LABS: T4 Free Direct 0.93 ng/dL (0.76-1.46); Thyroid Stim Hormone (TSH) 0.79 uIU/mL (0.358-3.74)
== END 2021-10-03 23:59 | disposition short-term general hospital (02) ==
LOC: BIMLAB 15:33
PROVIDERS: PCP Internal Medicine; Referring Provider Internal Medicine; Visit Provider Internal Medicine
DX: R79.89 Other specified abnormal findings of blood chemistry (principal)
CPT/HCPCS: 36415; 84439; 84443

== ENCOUNTER 2021-12-05 11:30 | Outpatient (RCR) | payer OTHER, SELFPAY ==
--- NOTE | 2021-11-08 08:59 | HP.PTEVAL_ITS ---
Patient's Visit Information DADA ANGULO is a 36 year old F referred to Physical Therapy by Dr. Orin Presley MD with a diagnosis of LOW BACK PAIN. Date of Evaluation: 11/08/21 Physical Therapist: Iman Kinsey PT, Cert MDT - Visit Plan Frequency: 2-3x /Week Duration: 4-6 Weeks Plan: AQUATIC THERAPY, POSTURE CORRECTION/STRENGTHENING, INSTRUCTION IN APPROPRIATE BODY MECHANICS AND ACTIVITY MODIFICATIONS. DLS STARTING WITH A NEUTRAL SPINE PROGRESSING ROM TOLERATED. SAJAN LE ROM, STRETCHING AND STRENGTHENING. HEP INSTRUCTION. 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 Disability: NO. Present symptoms: SAJAN LOW BACK PAIN R> L. SOME PAIN IN RIGHT HIP/LEG IN RIGHT THIGH. USUALLY NO PAIN BELOW KNEE. SOMETIMES RIGHT LE GOES TO SLEEP IF SITS TOO LONG BUT GOES AWAY QUICKLY WITH MVMT. Present since: END Aug 2021. Pain Scale: WORST 4/10, LEAST 1/10. Currently: /10. Commenced as a result of: NO APPARENT REASON. Symptoms at onset: LOW BACK. Worse: SITTING TOO LONG, STANDING ON A HARD SURFACE, DRIVING. Better: ICE, CHANGE OF POSITION. Disturbed sleep: YES. Previous history/Previous treatment: DISCECTOMY L4L5 BACK SURGERY 2019 (EXTRUSION ON NERVE). PHYSICAL THERPAY. STARTED GOING TO A CHIROPRACTOR IN NEEDED UNTIL SURGERY. NO CHIROPRACTOR SINCE SURGERY. Treatment this episode: MASSAGE THERAPY. Coughing/sneezing/straining: NEGATIVE. Gait: PATIENT REPORTS THAT UNTIL A FEW DAYS AGO SHE WAS WALKING TILTED TO THE RIGHT AND FORWARD AND SLOW MOVING WITH RIGHT BACK AND HIP PAIN. CAR RIDE TO [place] AND BACK SUNDAY TO SEE DR. PRESLEY WAS HORRIBLE. FOR NO APPARENT REASON SHE HAD A GREAT DAY SUNDAY AND HAS BEEN ABLE TO MOVE BETTER EVER SINCE. UP UNTIL THAT POINT COULDN'T PUT HER OWN SOCKS ON. Difficulty initiating urination: NO. NO BOWEL OR BLADDER DYSFUNCTION. Accidents: NO. Unexplained weight loss: NO. Imaging: RECENT LUMBAR X-RAYS WITH DR. PRESLEY SUNDAY. L45S1 DEGENERATION AND NARROWING BUT NO CHANGE FROM LAST TIME. REPORTS DR. PRESLEY SAID HER SPINE IS ALIGNED AND EVERYTHING ELSE LOOKED GOOD. PMH/Recent major surgery: HTN - Objective Sitting/Standing Posture: POOR. Lordosis: Lateral shift: Relevant shift: Active Correction of posture: Other Observations: INDEP GAIT AND TRANSFERS WITH GUARDING. Motor deficit: SAJAN LE'S GROSSLY 5/5 WITH MMT'ING EXCEPT HIPS 4/5. Sensory deficit: SAJAN LE LIGHT SENSATION GROSSLY INTACT AND SYMMETRICAL. ROM deficit: TIGHT SAJAN LE HIP FLEXORS, HS'S AND ESPECIALLY GASTROC-SOLEUS COMPLEX'S. Reflexes: 2/3 SAJAN LE'S. Dural Signs: NEGATIVE SAJAN LE'S. Lumbar mvmt loss: flex - MOD - INCREASES RIGHT LBP. ext - MOD - PULLS IN ANTERIOR RIGHT HIP REGION. R SG - MOD - INCREASES RIGHT LBP. L SG - MOD - INCREASES RIGHT LBP. PATIENT REPORTS FEELING MILD RIGHT LB PINCHING AND PULLING WITH LUMBAR ROM TESTING INTO FLEX AND SAJAN SG'ING. Core strength: POOR. Palpation: TENDERNESS WITH LIGHT PALPATION OF THE LUMBOSACRAL SPINE AND RIGHT PARASPINAL REGIONS. TREATMENT: NEUROMUSCULAR REEDUCATION - RETRAINING OF MVMT AND POSTURE FOR SITTING, LYING AND STANDING ACTIVITIES. - Balance/Special Test Scores Oswestry Low Back Score: 15 - Goals Goal 1:: DECREASE C/O LOW BACK AND RIGHT LE SXS'. Goal Time Frame: 4-6 Weeks Goal 2:: IMPROVE PERSONAL CARE, LIFTING, WALKING, STANDING, SLEEP, SOCIAL LIFE, TRAVEL AND WORK/HOMEMAKING FUNCTION. Goal Time Frame: 4-6 Weeks Goal 3:: INSTRUCT IN PROPHYLAXIS Goal Time Frame: 4-6 Weeks - Anticipated Interventions Thank you for the opportunity to evaluate your patient. For Medicare and Medicare HMO plans, please review the plan of care and approve it. It will need to be FAXED BACK to us at [phone] for Medicare purposes. For Medicare only, by signing this I certify the plan of care. Please let me know if there are questions or concerns regarding this plan of care. Physician Signature: Date:
--- NOTE | 2021-12-05 12:28 | HP.PTDCSUM ---
It has been my pleasure to treat DADA AGNULO referred by Dr. Orin Luis MD, with the diagnosis of LOW BACK PAIN for a total of 10 visit(s). Discharge Date: 12/05/21 Please see the following information for a summary of their discharge status. Subjective: I'M FEELING PRETTY GOOD BUT I AM STILL BEING CAREFUL. THE EX'S HAVE BEEN GOING WELL AT HOME AND THE BRIDGE IS GETTING BETTER. PATIENT REPORTS SHE WAS SO NERVOUS WHEN SHE GOT THE PAIN AND IT GOT WORSE BUT SHE IS SO GLAD THAT THIS HAS HELPED. ORDERED A NEW MATTRESS YESTERDAY. Lumbar Spine Pain Intensity (Out of 10): 1 % Improvement: 95 Objective/Function: PATIENT WAS SEEN TODAY FOR RE-ASSESSMENT OF PROGRESS TOWARD THE SET PT GOALS AND THE NEED FOR FURTHER PHYSICAL THERAPY VS READINESS FOR DISCHARGE. UPON EXAM TODAY: Dural Signs: NEGATIVE SAJAN LE'S. Lumbar mvmt loss: flex - MIN. ext - MIN. R SG - MIN. L SG - MIN. PATIENT DENIES PAIN WITH LUMBAR ROM TESTING TODAY. Core strength: POOR. Palpation: NO TENDERNESS WITH PALPATION OF THE LUMBOSACRAL SPINE AND RIGHT PARASPINAL REGIONS TODAY. Goal 1:: DECREASE C/O LOW BACK AND RIGHT LE SXS'. Goal Progress: Goal Met Goal 2:: IMPROVE PERSONAL CARE, LIFTING, WALKING, STANDING, SLEEP, SOCIAL LIFE, TRAVEL AND WORK/HOMEMAKING FUNCTION. Goal Progress: Goal Met Goal 3:: INSTRUCT IN PROPHYLAXIS Goal Progress: Goal Met Plan: D/C TO INDEP EX. PATIENT AGREEABLE. If there are questions or concerns regarding this patient's physical therapy, please feel free to call me at [phone]. Thank you for the referral of this patient. Sincerely, Iman Kinsey, PT, Cert MDT Balance/Gait/Functional tests - Balance/Special Test Scores Oswestry Low Back Score: 0
== END 2021-12-05 19:00 | disposition home or self-care (01) ==
LOC: PT 11:30
PROVIDERS: PCP Internal Medicine; Referring Provider Orthopaedic Surgery; Visit Provider Orthopaedic Surgery
DX: M54.10 Radiculopathy, site unspecified (principal)
CPT/HCPCS: 97112; 97113; 97162; 97164; 97530

== ENCOUNTER 2022-01-02 15:15 | Outpatient (CLI) | payer OTHER, SELFPAY ==
[2022-01-02 16:34] LABS: Absolute Neutrophil Count 6.6 X10^3/uL (2.0-7.7); Basophil# 0.06 X10^3/uL; Basophil% 0.6 % (0-1); Eosinophil# 0.13 X10^3/uL; Eosinophils% 1.3 % (0-5); Hematocrit 37.4 % (37-47); Hemoglobin 12.6 g/dL (12.0-15.0); Lymphocyte % 22.1 % (19-41); Mean Corp Hgb Conc 33.7 g/dL (32-36); Mean Corpuscular Hgb 28.4 pg (27.0-32.0); Mean Corpuscular Volume 84.2 fL (81-99); Monocyte% 9.1 % (0-10); NRBC Flagged by Analyzer 0 % (0-5); Neutrophil # 6.62 X10^3/uL (2.7-7.7); Neutrophil % 66.6 % (47-70); Platelet Count 383 K/mm3 (150-450); RBC Distribution Width CV 12.6 % (11.6-14.6); RBC Distribution Width SD 38.4 fl (35.1-43.9); Red Blood Count 4.44 M/mm3 (4.2-5.4); White Blood Count 9.9 K/mm3 (4.4-11.0)
[2022-01-02 16:49] LABS: ALB/GLOB Ratio 0.9 RATIO (0.9-2.4); AST(SGOT) 8 U/L (15-37); Alanine Aminotransfer ALT/SGPT 16 U/L (13-56); Albumin, Serum 3.5 g/dL (3.2-5.0); Alkaline Phosphatase 46 U/L (45-117); Anion Gap 4 (5-15); BUN 18 mg/dL (7-18); BUN/Creat Ratio 26.5 RATIO (10-20); Calcium,Total 8.9 mg/dL (8.5-10.1); Chloride 105 mmol/L (98-107); Creatinine, Serum 0.68 mg/dL (0.55-1.02); EST Glomerular Filtration Rate 103 mL/min (>60); Est Glom Filt Rate - Afr Amer 125 mL/min (>60); Globulin 3.8 g/dL (2.2-4.2); Glucose 90 mg/dL (74-106); Potassium 3.6 mmol/L (3.5-5.1); Protein, Total 7.3 g/dL (6.4-8.2); Sodium Level 138 mmol/L (136-145)
[2022-01-03 09:29] LABS: Cholesterol 214 mg/dL (200); High Density Lipoprotein 47 mg/dL; Triglycerides 174 mg/dL; Very Low Density Lipoprotein 35 mg/dL (5-40)
== END 2022-01-02 23:59 | disposition home or self-care (01) ==
LOC: BIMLAB 15:16
PROVIDERS: PCP Internal Medicine; Visit Provider Internal Medicine
DX: Z00.00 Encounter for general adult medical examination without abnormal findings (principal); I10 Essential (primary) hypertension; E78.5 Hyperlipidemia, unspecified
CPT/HCPCS: 36415; 80053; 80061; 85025

== ENCOUNTER → 2022-06-13 | Outpatient (CLI) | payer OTHER, SELFPAY | END | disposition home or self-care (01) | LOC: LABSPEC 13:27 | PROVIDERS: PCP Internal Medicine; Visit Provider Physician Assistant | DX: J02.9 Acute pharyngitis, unspecified (principal); J34.89 Other specified disorders of nose and nasal sinuses | CPT/HCPCS: 87633; 87635; U0003; U0005 ==

== ENCOUNTER → 2022-07-05 | Outpatient (CLI) | payer OTHER, SELFPAY ==
--- NOTE | 2022-07-05 07:03 | BI_ITS ---
MAMMOGRAPHY - BILATERAL SCREENING REASON FOR EXAM: Female, 37 years old. Routine annual screening examination. PERTINENT HISTORY: Grandmother with breast cancer. Aunt with breast cancer. TECHNIQUE: Digital bilateral breast cathy (3D mammographic acquisition) in the CC and MLO projections. 2-D mediolateral oblique (MLO) and craniocaudad (CC) views of both breasts were obtained. CAD: Full Field Digital Mammography with Computer Added Detection was performed. COMPARISON: Comparison is made with prior examination 05/10/2021 and 02/27/2020. FINDINGS: Breast Composition: The breasts are heterogeneously dense, which may obscure small masses. There are no dominant masses or suspicious calcifications. Stable small benign-appearing bilateral axillary lymph nodes. No other significant abnormalities are identified. There has been no significant change since the prior study. BI/SCRN MAMM (CAD)W/CATHY BILAT IMPRESSION: Stable bilateral screening mammogram. Yearly follow-up mammogram recommended. (A) ASSESSMENT CATEGORY: BIRADS Category 2: Benign. A letter regarding these results will be sent to the patient by the facility within 30 days. Approximately 10% of breast cancers are not detected by mammography. A normal mammogram should not delay biopsy of a clinically suspicious abnormality. [id number] Electronically Signed: Shay Short MD at 8:58 EDT ,
== END | disposition home or self-care (01) ==
LOC: OPBI 07:02
PROVIDERS: PCP Internal Medicine; Visit Provider Obstetrics & Gynecology
DX: Z12.31 Encounter for screening mammogram for malignant neoplasm of breast (principal); Z80.3 Family history of malignant neoplasm of breast
CPT/HCPCS: 77063; 77067

== ENCOUNTER → 2022-08-09 | Outpatient (CLI) | payer OTHER, SELFPAY ==
[2022-08-09 10:24] LABS: Anion Gap 7 (5-15); BUN 19 mg/dL (7-18); Chloride 107 mmol/L (98-107); Creatinine, Serum 0.68 mg/dL (0.55-1.02); EST Glomerular Filtration Rate 103 mL/min (>60); Est Glom Filt Rate - Afr Amer 125 mL/min (>60); Glucose 88 mg/dL (74-106); Sodium Level 142 mmol/L (136-145)
== END | disposition home or self-care (01) ==
PROVIDERS: PCP Internal Medicine; Referring Provider Internal Medicine; Visit Provider Internal Medicine
DX: I10 Essential (primary) hypertension (principal)
CPT/HCPCS: 36415; 80048

== ENCOUNTER → 2022-11-13 | Outpatient (CLI) | payer OTHER, SELFPAY ==
[2022-11-13 10:19] LABS: Absolute Lymphocyte Count 2.96 X10^3/uL (0.83-4.51); Absolute Neutrophil Count 4.7 X10^3/uL (2.0-7.7); Basophil# 0.05 X10^3/uL; Basophil% 0.6 % (0-1); Eosinophil# 0.31 X10^3/uL; Eosinophils% 3.5 % (0-5); Hematocrit 38.9 % (37-47); Hemoglobin 12.8 g/dL (12.0-15.0); Lymphocyte # 2.96 X10^3/ul (0.83-4.51); Lymphocyte % 33.8 % (19-41); Mean Corp Hgb Conc 32.9 g/dL (32-36); Mean Corpuscular Hgb 27.5 pg (27.0-32.0); Mean Corpuscular Volume 83.5 fL (81-99); Mean Platelet Vol. 9.5 fl (6.2-12.0); Monocyte# 0.72 X10^3/uL; Monocyte% 8.2 % (0-10); NRBC Flagged by Analyzer 0 % (0-5); Neutrophil # 4.68 X10^3/uL (2.7-7.7); Neutrophil % 53.4 % (47-70); Platelet Count 483 K/mm3 (150-450); RBC Distribution Width CV 12.8 % (11.6-14.6); RBC Distribution Width SD 38.6 fl (35.1-43.9); Red Blood Count 4.66 M/mm3 (4.2-5.4); White Blood Count 8.8 K/mm3 (4.4-11.0)
[2022-11-13 10:32] LABS: ALB/GLOB Ratio 0.7 RATIO (0.9-2.4); AST(SGOT) 15 U/L (15-37); Alanine Aminotransfer ALT/SGPT 21 U/L (13-56); Albumin, Serum 3.2 g/dL (3.2-5.0); Alkaline Phosphatase 47 U/L (45-117); Anion Gap 6 (5-15); BUN 16 mg/dL (7-18); BUN/Creat Ratio 17.6 RATIO (10-20); Calcium,Total 8.9 mg/dL (8.5-10.1); Chloride 105 mmol/L (98-107); Creatinine, Serum 0.91 mg/dL (0.55-1.02); EST Glomerular Filtration Rate 73 mL/min (>60); Est Glom Filt Rate - Afr Amer 89 mL/min (>60); Globulin 4.6 g/dL (2.2-4.2); Glucose 97 mg/dL (74-106); Potassium 3.8 mmol/L (3.5-5.1); Protein, Total 7.8 g/dL (6.4-8.2); Sodium Level 138 mmol/L (136-145)
== END | disposition home or self-care (01) ==
LOC: MTLAB 07:11
PROVIDERS: PCP Internal Medicine; Referring Provider Internal Medicine; Visit Provider Internal Medicine
DX: E78.5 Hyperlipidemia, unspecified (principal)
CPT/HCPCS: 36415; 80053; 85025

== ENCOUNTER → 2022-11-17 | Outpatient (CLI) | payer OTHER, SELFPAY ==
[2022-11-17 12:42] LABS: Hemoglobin A1c 5.1 % (3.8-5.6)
[2022-11-17 12:43] LABS: Absolute Lymphocyte Count 2.74 X10^3/uL (0.83-4.51); Absolute Neutrophil Count 3.9 X10^3/uL (2.0-7.7); Basophil# 0.05 X10^3/uL; Basophil% 0.6 % (0-1); Eosinophil# 0.22 X10^3/uL; Eosinophils% 2.8 % (0-5); Hematocrit 38.3 % (37-47); Hemoglobin 12.8 g/dL (12.0-15.0); Lymphocyte # 2.74 X10^3/ul (0.83-4.51); Lymphocyte % 35.5 % (19-41); Mean Corp Hgb Conc 33.4 g/dL (32-36); Mean Corpuscular Hgb 27.9 pg (27.0-32.0); Mean Corpuscular Volume 83.4 fL (81-99); Mean Platelet Vol. 9.7 fl (6.2-12.0); Monocyte# 0.81 X10^3/uL; Monocyte% 10.5 % (0-10); NRBC Flagged by Analyzer 0 % (0-5); Neutrophil # 3.87 X10^3/uL (2.7-7.7); Neutrophil % 50.2 % (47-70); Platelet Count 452 K/mm3 (150-450); RBC Distribution Width SD 38.7 fl (35.1-43.9); Red Blood Count 4.59 M/mm3 (4.2-5.4); White Blood Count 7.7 K/mm3 (4.4-11.0)
[2022-11-17 13:39] LABS: ALB/GLOB Ratio 0.9 RATIO (0.9-2.4); AST(SGOT) 10 U/L (15-37); Alanine Aminotransfer ALT/SGPT 17 U/L (13-56); Albumin, Serum 3.5 g/dL (3.2-5.0); Alkaline Phosphatase 45 U/L (45-117); Anion Gap 6 (5-15); BUN 18 mg/dL (7-18); BUN/Creat Ratio 21.7 RATIO (10-20); Calcium,Total 9.2 mg/dL (8.5-10.1); Chloride 104 mmol/L (98-107); Cholesterol 219 mg/dL (200); Creatinine, Serum 0.83 mg/dL (0.55-1.02); EST Glomerular Filtration Rate 82 mL/min (>60); Est Glom Filt Rate - Afr Amer 99 mL/min (>60); Globulin 4.1 g/dL (2.2-4.2); Glucose 88 mg/dL (74-106); High Density Lipoprotein 46 mg/dL; Potassium 4.2 mmol/L (3.5-5.1); Protein, Total 7.6 g/dL (6.4-8.2); Sodium Level 137 mmol/L (136-145); Triglycerides 109 mg/dL; Very Low Density Lipoprotein 22 mg/dL (5-40)
== END | disposition home or self-care (01) ==
LOC: BIMLAB 08:55
PROVIDERS: PCP Internal Medicine; Referring Provider Internal Medicine; Visit Provider Internal Medicine
DX: Z00.00 Encounter for general adult medical examination without abnormal findings (principal); E78.5 Hyperlipidemia, unspecified; I10 Essential (primary) hypertension
CPT/HCPCS: 36415; 80053; 80061; 83036; 85025

== ENCOUNTER 2023-04-26 16:20 | Outpatient (CLI) | payer OTHER, SELFPAY ==
[2023-05-02 15:08] LABS: HPV APTIMA, High Risk Negative (Negative)
== END 2023-04-26 23:59 | disposition home or self-care (01) ==
LOC: LABSPEC 16:22
PROVIDERS: PCP Internal Medicine; Referring Provider Obstetrics & Gynecology; Visit Provider Obstetrics & Gynecology
DX: Z12.4 Encounter for screening for malignant neoplasm of cervix (principal)
CPT/HCPCS: 87624; 88175; G0145

== ENCOUNTER 2023-05-03 13:40 | Emergency (ER) | payer OTHER, SELFPAY ==
[2023-05-03 13:40] VITALS: BP 156/104; PULSE 98; RESP 16; TEMP 36.9; O2SAT 98; BMI 40.3
[2023-05-03 14:32] LABS: Absolute Lymphocyte Count 2.77 X10^3/uL (0.83-4.51); Basophil# 0.06 X10^3/uL; Basophil% 0.6 % (0-1); Eosinophil# 0.15 X10^3/uL; Eosinophils% 1.5 % (0-5); Hemoglobin 12.9 g/dL (12.0-15.0); Lymphocyte # 2.77 X10^3/ul (0.83-4.51); Lymphocyte % 28.1 % (19-41); Mean Corp Hgb Conc 33.1 g/dL (32-36); Mean Corpuscular Hgb 27.5 pg (27.0-32.0); Mean Corpuscular Volume 83.2 fL (81-99); Mean Platelet Vol. 9.5 fl (6.2-12.0); Monocyte# 0.86 X10^3/uL; Monocyte% 8.7 % (0-10); NRBC Flagged by Analyzer 0 % (0-5); Neutrophil # 5.99 X10^3/uL (2.7-7.7); Neutrophil % 60.8 % (47-70); Platelet Count 399 K/mm3 (150-450); RBC Distribution Width CV 13.1 % (11.6-14.6); RBC Distribution Width SD 39.1 fl (35.1-43.9); Red Blood Count 4.69 M/mm3 (4.2-5.4); White Blood Count 9.9 K/mm3 (4.4-11.0)
[2023-05-03 14:49] LABS: ALB/GLOB Ratio 0.9 RATIO (0.9-2.4); AST(SGOT) 12 U/L (15-37); Alanine Aminotransfer ALT/SGPT 21 U/L (13-56); Albumin, Serum 3.6 g/dL (3.2-5.0); Alkaline Phosphatase 48 U/L (45-117); Anion Gap 4 (5-15); BUN 14 mg/dL (7-18); BUN/Creat Ratio 19.2 RATIO (10-20); Calcium,Total 9.2 mg/dL (8.5-10.1); Chloride 104 mmol/L (98-107); Creatinine, Serum 0.73 mg/dL (0.55-1.02); EST Glomerular Filtration Rate 94 mL/min (>60); Est Glom Filt Rate - Afr Amer 114 mL/min (>60); Estimated Creatinine Clearance 94.02 ml/min; Globulin 4.2 g/dL (2.2-4.2); Glucose 88 mg/dL (74-106); Lipase 27 U/L (13-75); Potassium 3.9 mmol/L (3.5-5.1); Protein, Total 7.8 g/dL (6.4-8.2); Sodium Level 137 mmol/L (136-145)
[2023-05-03 15:10] LABS: Bacteria 0 SEEN /hpf (None Seen); Mucous, Urine 0 SEEN /hpf (<or=2+); Red Blood Cells-Urine 0 SEEN /hpf (0-5); Squamous Epithelial Cells - UA 0 SEEN /hpf (5-10); White Blood Cells 0 SEEN /hpf (0-5)
[2023-05-03 15:11] LABS: Color, Urine Yellow (Yellow); Glucose, Dipstick Normal (Normal); Ketone-Dipstick Negative (Negative); Leukocyte Esterase-Dipstick Negative /ul (Negative); Nitrite-Dipstick Negative (Negative); Occult Blood-Urine 50 /ul (Negative); Protein-Dipstick Negative (Negative); Specific Gravity, Urine 1.015 (1.002-1.030); Urine Bilirubin Dipstick Negative (Negative); Urine Clarity Clear (Clear); Urine Urobilinogen Normal (Normal); Urine pH 6.5 (5.0 - 8.0)
--- NOTE | 2023-05-03 15:11 | EX.ED.DYSGE1 ---
HPI <ЮЛИЯ Ying - Last Filed: 05/03/23 17:25> History of Present Illness Chief Complaint: Abd Pain Narrative Narrative: Patient presenting today with right lower quadrant abdominal pain that radiates to her right groin that she has had since this morning. She reports that she was sitting at her desk at work and went to stand up and felt a sharp sudden pain. Whenever she moves her right leg around the pain is worsened. She has had some nausea without any vomiting. She reports that for the past few weeks she has had intermittent abdominal pain in her right side and right upper quadrant that at times would radiate to her back. She denies having current right-sided flank pain. She denies any fever, chills, urinary symptoms, diarrhea, and prior abdominal surgeries. She does report a history of kidney stones but does not think that this pain feels similar. PMH includes hypertension. PFSH <ЮЛИЯ Ying - Last Filed: 05/03/23 17:25> [facility] Medical History Back ache Chest congestion Cough Dermatitis Elevated antinuclear antibody (JOSE) level GERD (gastroesophageal reflux disease) Hemorrhoid Hives Hyperlipidemia Hypertension Low TSH level Obesity Obesity, Class III, BMI 40-49.9 (morbid obesity) Preventative health care Right sided abdominal pain Seasonal allergies Sinusitis Home Medications epinephrine 0.3 mg/0.3 mL injection, auto-injector (EpiPen 2-Jonh) 0.3 mg (0.3 mL) IM Q5-15M PRN anaphylaxis #2 ea 03/01/21 [Rx Last Taken Unknown] lisinopril 5 mg tablet See Rx Instructions .Route .COMPLEX #180 tabs 03/06/23 [Rx Last Taken Unknown] lactobacillus combination no.4 3 billion cell capsule (Probiotic) 3,000 mmu cells PO DAILY 04/26/23 [History Last Taken Unknown] amoxicillin 875 mg-potassium clavulanate 125 mg tablet 1 tab PO BID #20 tabs 04/30/23 [Rx Last Taken Unknown] Allergy/AdvReac Type Severity Reaction Status Date / Time ondansetron Allergy Intermediate Hives Verified 05/03/23 13:42 [From Zofran (as hydrochloride)] clindamycin Allergy Hives Verified 05/03/23 13:42 ketorolac Allergy Hives Verified 05/03/23 13:42 Family History Father History of blood clots Mother History of blood clots Grandmother History of blood clots Breast cancer Cancer Thyroid Grandfather Diabetes Hypertension Myocardial infarction, Onset Age: 57 paternal Surgical History History of discectomy History of removal of skin mole Hx of tonsillectomy Social History Smoking Status: Never smoker alcohol intake: current alcohol intake frequency: holidays/special occasions only Alcohol type: wine substance use type: does not use caffeine: No what type of physical activity do you participate in: 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 use: always do you feel safe at home: Yes additional social history: - Kevin BURLESON <ЮЛИЯ Ying - Last Filed: 05/03/23 17:25> ROS ED Constitutional Constitutional ED: Denies chills or fever(s) Cardiovascular Cardiovascular: Denies chest pain or palpitations Respiratory/Chest Respiratory/Chest: Denies cough or dyspnea Gastrointestinal Gastrointestinal: Reports abdominal pain and nausea; Denies constipation, diarrhea, hematochezia, melena or vomiting Genitourinary Genitourinary ED: Denies dysuria, hematuria or urinary urgency Musculoskeletal Musculoskeletal: Denies arthralgias, back pain or myalgias Integumentary Denies abscess, Abrasions or rash Neurologic Neurologic: Denies weakness EXAM <ЮЛИЯ Ying - Last Filed: 05/03/23 17:25> Physical Exam Const Vital Signs: 05/03/23 13:40 05/03/23 16:00 Temperature 98.5 F Temperature Source Temporal Pulse Rate 98 Respiratory Rate 16 Blood Pressure 156/104 H 149/94 H Blood Pressure Mean 121 Pulse Ox 98 Oxygen Delivery Method Room Air Positive well nourished, well developed and no apparent distress General Appearance ED: well developed HEENT Reports normocephalic and head/scalp atraumatic Mouth ED: Yes moist mucous membranes normal Eyes PERRL and EOMs intact bilaterally Neck full ROM and supple Chest Wall inspection of chest normal Resp normal respiratory effort and clear to auscultation bilaterally Cardio regular rate and regular rhythm GI non-distended and no masses GI Narrative: Right lower quadrant tenderness to palpation to McBurney's point, negative Rovsing sign, pain to the abdomen with movement of the right lower extremity. Palpation: soft Back/Spine no CVA tenderness, normal ROM and normal to inspection Extremity normal to inspection and full ROM Neuro oriented x3, CN's II-XII intact bilaterally, moves all extremities, no focal motor deficits and no sensory deficits noted Sensorium / Orientation: awake and alert Psych mental status grossly normal and thought process normal Skin no rashes or lesions noted and no wounds <Dr. Dayo Irving MD - Last Filed: 05/04/23 02:14> Physical Exam Const Vital Signs: 05/03/23 13:40 05/03/23 16:00 Temperature 98.5 F Temperature Source Temporal Pulse Rate 98 Respiratory Rate 16 Blood Pressure 156/104 H 149/94 H Blood Pressure Mean 121 Pulse Ox 98 Oxygen Delivery Method Room Air MDM <ЮЛИЯ Ying - Last Filed: 05/03/23 17:25> [facility] Narrative Medical decision making narrative: Patient presenting today with right lower quadrant abdominal pain that started today when she went to urgent care. She describes it as sharp and constant. She is well-appearing and in no distress, she does not want anything for pain or nausea at this time. Vitals are unremarkable aside from elevated blood pressure. Labs will be obtained to rule out leukocytosis, anemia, electrolyte abnormality, and UTI. Lab overall are unremarkable. CT of the abdomen and pelvis obtained to rule out kidney stone, appendicitis, ovarian cyst, and other acute abdominal etiology. She has nonobstructing bilateral renal calculi and a right-sided ovarian cyst. Patient will be discharged home in stable condition and has been given return instructions. She is comfortable with plan. She is to take NSAIDs for her discomfort. Lab Data Attestation: I reviewed the patient's lab results. Labs: Laboratory Results - last 24 hr 05/03/23 05/03/23 14:20 15:05 WBC 9.9 RBC 4.69 Hgb 12.9 Hct 39.0 MCV 83.2 MCH 27.5 MCHC 33.1 RDW Std Deviation 39.1 RDW Coeff of Monalisa 13.1 Plt Count 399 MPV 9.5 Immature Gran % (Auto) 0.300 Neut % (Auto) 60.8 Lymph % (Auto) 28.1 Mingo % (Auto) 8.7 Eos % (Auto) 1.5 Baso % (Auto) 0.6 Absolute Neuts (auto) 6.0 Absolute Lymphs (auto) 2.77 Nucleated RBC % 0 Sodium 137 Potassium 3.9 Chloride 104 Carbon Dioxide 29.0 Anion Gap 4 L BUN 14 Creatinine 0.73 Estim Creat Clear Calc 94.02 Est GFR (MDRD) Af Amer 114 Est GFR (MDRD) Non-Af 94 BUN/Creatinine Ratio 19.2 Glucose 88 Calcium 9.2 Total Bilirubin 0.20 AST 12 L ALT 21 Alkaline Phosphatase 48 Total Protein 7.8 Albumin 3.6 Globulin 4.2 Albumin/Globulin Ratio 0.9 Lipase 27 Urine Color Yellow Urine Clarity Clear Urine pH 6.5 Ur Specific Sawyer 1.015 Urine Protein Negative Urine Glucose (UA) Normal Urine Ketones Negative Urine Occult Blood 50 H Urine Nitrite Negative Urine Bilirubin Negative Urine Urobilinogen Normal Ur Leukocyte Esterase Negative Urine RBC 0 SEEN Urine WBC 0 SEEN Ur Squamous Epith Cells 0 SEEN Urine Bacteria 0 SEEN Urine Mucus 0 SEEN Urine Test Negative Radiography Diagnostic Testing: Clinical Impression(s) from Imaging Studies Abdomen/Pelvis CT 05/03/23 15:22 IMPRESSION: Small nonobstructive bilateral intrarenal calculi. No obstructive uropathy is seen at this time. Findings suggestive of a 3.4 cm x 2.4 cm right ovarian cyst. Electronically Signed: Shay Short MD at 15:43 EDT , <Dr. Dayo Irving MD - Last Filed: 05/04/23 02:14> [facility] Narrative Medical decision making narrative: Patient presenting today with right lower quadrant abdominal pain that started today when she went to urgent care. She describes it as sharp and constant. She is well-appearing and in no distress, she does not want anything for pain or nausea at this time. Vitals are unremarkable aside from elevated blood pressure. Labs will be obtained to rule out leukocytosis, anemia, electrolyte abnormality, and UTI. Lab overall are unremarkable. CT of the abdomen and pelvis obtained to rule out kidney stone, appendicitis, ovarian cyst, and other acute abdominal etiology. She has nonobstructing bilateral renal calculi and a right-sided ovarian cyst. Patient will be discharged home in stable condition and has been given return instructions. She is comfortable with plan. She is to take NSAIDs for her discomfort. I have personally performed a face to face assessment of the patient and have reviewed the SANDY Note. I performed a substantive portion of the visit including all aspects of the following. My leong findings include: History is remarkable for right lower quadrant Fabiano pain. Patient has prior history of ureterolithiasis. Patient denies fever, chills night sweats. Patient denies any precipitating or exacerbating or alleviating factors. She states the pain was worse several hours prior to presentation. She denies dysuria, frequency, urgency or hematuria. She denies flank pain presently. She did complain of lower right back pain at the onset of the discomfort. She did report nausea initially without vomiting. She denies diarrhea or constipation. Exam is abdomen is soft and essentially nontender. There is no CVA tenderness. There is no evidence of trauma. Bowel sounds are present diminished. There is no elin lymphadenopathy. There is no evidence of inguinal hernia. Medical Decision Making differential diagnosis would include ureterolithiasis, atypical presentation appendicitis, gynecologic pathology and specifically ovarian cyst with patient's symptoms improving doubt torsion. Other additions or changes: CAT scan reveals a right ovarian cyst. Suspect this is the culprit. Patient was discharged to home with appropriate home-going instructions for ovarian cyst. Lab Data Lab results narrative: CBC is unremarkable. Electrolyte panel is unremarkable. Lipase was normal. test was negative. UA added. Labs: Laboratory Results - last 24 hr 05/03/23 05/03/23 14:20 15:05 WBC 9.9 RBC 4.69 Hgb 12.9 Hct 39.0 MCV 83.2 MCH 27.5 MCHC 33.1 RDW Std Deviation 39.1 RDW Coeff of Monalisa 13.1 Plt Count 399 MPV 9.5 Immature Gran % (Auto) 0.300 Neut % (Auto) 60.8 Lymph % (Auto) 28.1 Mingo % (Auto) 8.7 Eos % (Auto) 1.5 Baso % (Auto) 0.6 Absolute Neuts (auto) 6.0 Absolute Lymphs (auto) 2.77 Nucleated RBC % 0 Sodium 137 Potassium 3.9 Chloride 104 Carbon Dioxide 29.0 Anion Gap 4 L BUN 14 Creatinine 0.73 Estim Creat Clear Calc 94.02 Est GFR (MDRD) Af Amer 114 Est GFR (MDRD) Non-Af 94 BUN/Creatinine Ratio 19.2 Glucose 88 Calcium 9.2 Total Bilirubin 0.20 AST 12 L ALT 21 Alkaline Phosphatase 48 Total Protein 7.8 Albumin 3.6 Globulin 4.2 Albumin/Globulin Ratio 0.9 Lipase 27 Urine Color Yellow Urine Clarity Clear Urine pH 6.5 Ur Specific Sawyer 1.015 Urine Protein Negative Urine Glucose (UA) Normal Urine Ketones Negative Urine Occult Blood 50 H Urine Nitrite Negative Urine Bilirubin Negative Urine Urobilinogen Normal Ur Leukocyte Esterase Negative Urine RBC 0 SEEN Urine WBC 0 SEEN Ur Squamous Epith Cells 0 SEEN Urine Bacteria 0 SEEN Urine Mucus 0 SEEN Urine Test Negative Radiography Diagnostic Testing: Clinical Impression(s) from Imaging Studies Abdomen/Pelvis CT 05/03/23 15:22 IMPRESSION: Small nonobstructive bilateral intrarenal calculi. No obstructive uropathy is seen at this time. Findings suggestive of a 3.4 cm x 2.4 cm right ovarian cyst. Electronically Signed: Shay Short MD at 15:43 EDT , Discharge Plan Triage Chief Complaint: Abd Pain ED Midlevel Provider: Anisha Carver ED Provider: Dayo Irving Dx/Rx/DC Orders Clinical Impression: Ovarian cyst, Abdominal pain Instructions: Abdominal Pain, ED Ovarian Cyst Prescriptions: No Action epinephrine [EpiPen 2-Jonh] 0.3 mg/0.3 mL auto-injector 0.3 mg IM Q5-15M PRN (Reason: anaphylaxis) Qty: 2 2RF Rx Instructions: do not exceed 3 doses per episode Probiotic 3 billion cell capsule 3,000 mmu cells PO DAILY Rx Instructions: administer with a meal amoxicillin-pot clavulanate 875-125 mg tablet 1 tab PO BID Qty: 20 0RF lisinopril 5 mg tablet See Rx Instructions .ROUTE .COMPLEX Qty: 180 0RF Dose Instruction: take 1 tablet by mouth twice a day for blood pressure Rx Instructions: take 1 tablet by mouth twice a day for blood pressure Primary Care Provider: Neeal Soni Referrals: Neela Soni MD [Primary Care Provider] - 3-5 Days Activity Restrictions/Additional Instructions: Please follow-up with your PCP and return for any worsening of symptoms. Disposition Disposition: Home, Self Care Discharge Date/Time: 05/03/23 16:04
[2023-05-03 15:19] LABS: Internal QC Validated? YES +Cl - CLEAR BKGD; Pregnancy, Urine Negative Negative
--- NOTE | 2023-05-03 15:22 | CT_ITS ---
STUDY: CT ABDOMEN AND PELVIS WITHOUT CONTRAST REASON FOR EXAM: Female, 37 years old. RLQ pain, hx stones. RADIATION DOSAGE (If Supplied By Facility): CTDIvol = ( 20.10 ) mGy, DLP = ( 1079.47 ) mGycm TECHNIQUE: Transaxial images were obtained from the dome of the diaphragm to the symphysis pubis without oral contrast, and without intravenous contrast. Sagittal and coronal images were reconstructed. Individualized dose optimization techniques were used for this CT. COMPARISON: Comparison is made with prior study dated March 04, 2018. FINDINGS: The visualized lung bases are unremarkable. The visualized portions of the heart are within normal limits. There is decreased attenuation of the liver consistent with steatosis. Normal gallbladder and extrahepatic biliary system. Normal spleen. Normal pancreas. Normal bilateral adrenal glands. Punctate calculus in the upper pole calyx of the left kidney. There are 2 adjacent 5 mm nonobstructive calculi in the right kidney. Normal visualized stomach. Normal small intestine. Normal colon. The appendix is visualized and appears normal. There is scattered atherosclerotic calcification of the abdominal aorta, without a demonstrated aneurysm. Normal inferior vena cava. Normal retroperitoneum. Normal urinary bladder. I suspect 3.4 cm x 2.4 cm right ovarian cyst. Normal abdominal wall. Normal osseous structures. CT/Abdomen/Pelvis without Cont IMPRESSION: Small nonobstructive bilateral intrarenal calculi. No obstructive uropathy is seen at this time. Findings suggestive of a 3.4 cm x 2.4 cm right ovarian cyst. Electronically Signed: Shay Short MD at 15:43 EDT ,
[2023-05-03 16:00] VITALS: BP 149/94
== END 2023-05-03 16:04 | disposition home or self-care (01) ==
PROVIDERS: Physician Assistant; Emergency Provider Emergency Medicine; PCP Internal Medicine; Visit Provider Emergency Medicine
DX: N83.201 Unspecified ovarian cyst, right side (principal); N20.0 Calculus of kidney; R10.31 Right lower quadrant pain
CPT/HCPCS: 74176; 80053; 81001; 81025; 83690; 85025; 99283; A4216

== ENCOUNTER → 2023-05-19 | Outpatient (CLI) | payer OTHER, SELFPAY ==
--- NOTE | 2023-05-19 07:57 | US_ITS ---
EXAM: US ABDOMEN LIMITED, RIGHT UPPER QUADRANT CLINICAL INDICATION: RUQ Pain TECHNIQUE: Real-time ultrasound of the right upper quadrant with image documentation. COMPARISON: No relevant prior studies available. FINDINGS: LIVER: Increased echogenicity of the liver is nonspecific but most commonly associated with hepatic steatosis. GALLBLADDER: Unremarkable. No shadowing gallstone. No gallbladder wall thickening is demonstrated. No pericholecystic fluid. Negative sonographic Staley''s sign. COMMON BILE DUCT: Unremarkable as visualized. The proximal common bile duct is within normal limits for the patient''s age. PANCREAS: Unremarkable as visualized. No focal abnormality is demonstrated in the pancreas. No pancreatic ductal dilatation. RIGHT KIDNEY: 1 cm shadowing calculus of the right kidney. There is no hydronephrosis. No focal lesion or perinephric collection is demonstrated. US/Abdomen Limited IMPRESSION: 1. Increased echogenicity of the liver is nonspecific but most commonly associated with hepatic steatosis. 2. 1 cm shadowing calculus of the right kidney. No hydronephrosis. Electronically Signed: Bean Guzmán (Brooks), at 21:03 EDT ,
== END | disposition home or self-care (01) ==
LOC: US 07:51
PROVIDERS: PCP Internal Medicine; Referring Provider Internal Medicine; Visit Provider Internal Medicine
DX: R10.11 Right upper quadrant pain (principal)
CPT/HCPCS: 76705

== ENCOUNTER → 2023-06-11 | Outpatient (CLI) | payer OTHER, SELFPAY ==
--- NOTE | 2023-06-11 09:44 | NM_ITS ---
CLINICAL: 37-year-old female with history of right upper quadrant abdominal pain. RADIONUCLIDE HEPATOBILIARY SCINTIGRAPHY COMPARISON: None available FINDINGS: Following the intravenous administration of 5.3 mCi of 99m Tc Mebrofenin, hepatobiliary images reveal: 1. Relatively prompt and homogeneous radiopharmaceutical concentration is noted by a normal sized liver. No parenchymal defects are identified. 2. Gallbladder activity is identified at 10 minutes post radiopharmaceutical administration. 3. Small intestinal tract is observed at 60 minutes following tracer injection. 4. Washout of the radiopharmaceutical by the hepatic parenchyma appears qualitatively normal. Cholecystokinin (0.02 ug/kg) was administered intravenously over a 3-minute period. The post CCK gallbladder ejection fraction calculated at 20 minutes following Cholecystokinin administration was noted to be 19.7 % (normal greater than 35%). 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 NM/Hepatobilliary Img w/Pharm Int IMPRESSION: 1. ABNORMAL 99m Tc Mebrofenin hepatobiliary imaging examination with Cholecystokinin. A. A gallbladder ejection fraction calculated to be less than 35% following the administration of Cholecystokinin is consistent with the presence of functional hepatobiliary disease (gallbladder and/or sphincter of Oddi dyskinesia) and/or organic hepatobiliary disease (chronic acalculous cholecystitis and/or cystic duct syndrome) in patients with intermediate to high pretest probabilities of hepatobiliary illness. (Heike Lovelace et al, Journal of Nuclear Medicine 32:1695, 1990). B. There is scintigraphic evidence of post CCK duodenal-gastric reflux. (Margaux et al, Nucl Med [employer] Press pg. 35, 1980). Electronically Signed: Magdi Hernandez DO at 23:47 EDT ,
== END | disposition home or self-care (01) ==
LOC: NM 09:42
PROVIDERS: PCP Internal Medicine; Referring Provider Internal Medicine; Visit Provider Internal Medicine
DX: R10.11 Right upper quadrant pain (principal)
CPT/HCPCS: 78227; A9537; J2805

== ENCOUNTER → 2023-07-26 | Outpatient (CLI) | payer OTHER, SELFPAY ==
--- NOTE | 2023-07-26 09:52 | US_ITS ---
STUDY: ULTRASOUND OF THE FEMALE PELVIS - COMPLETE REASON FOR EXAM: Female, 38 years old. Ovarian cyst LMP: June 27, 2023. TECHNIQUE: Transabdominal and Transvaginal TECHNICAL QUALITY: Adequate. COMPARISON: Comparison is made with prior study dated May 10, 2021. FINDINGS: The uterus is anteverted and is in a midline position. The uterus measures 11 cm x 6.7 cm x 6.1 cm. Normal uterine cervix. The endometrium is thickened and measures 16.7 mm in thickness, and is hyperechoic. There is no demonstrated endometrial mass. 2 small uterine fibroids are seen. The largest fibroid measures 1.5 cm x 1.4 cm x 0.9 cm. I.U.D. - The patient does not have an I.U.D. The right ovary is visualized. The right ovary measures 3.9 cm x 2.7 cm x 2.4 cm. There is no right ovarian cyst or ovarian mass. There is no visualized right adnexal mass or complex lesion. There is normal arterial and normal venous vascularity. The left ovary is visualized. The left ovary measures 3.8 cm x 3.2 cm x 1.9 cm. There is no left ovarian cyst or ovarian mass. There is no visualized left adnexal mass or complex lesion. There is normal arterial and normal venous vascularity. There is no fluid in the cul-de-sac. The pre void volume of the bladder was 695 ml. US/Pelvic (Non ) IMPRESSION: Endometrial thickening. This may be related to the patient''s menstrual phase. 2,Small uterine fibroids. Electronically Signed: Shay Short MD at 12:55 EDT ,
== END | disposition home or self-care (01) ==
LOC: US 09:48
PROVIDERS: PCP Internal Medicine; Referring Provider Obstetrics & Gynecology; Visit Provider Obstetrics & Gynecology
DX: N83.209 Unspecified ovarian cyst, unspecified side (principal)
CPT/HCPCS: 76830; 76856

== ENCOUNTER → 2023-09-28 | Outpatient (CLI) | payer OTHER, SELFPAY ==
[2023-09-28 12:58] LABS: Anion Gap 4 (5-15); BUN 18 mg/dL (7-18); BUN/Creat Ratio 22.4 RATIO (10-20); Calcium,Total 9.3 mg/dL (8.5-10.1); Chloride 104 mmol/L (98-107); Cholesterol 280 mg/dL (200); EST Glomerular Filtration Rate 84 mL/min (>60); Est Glom Filt Rate - Afr Amer 102 mL/min (>60); Glucose 95 mg/dL (74-106); High Density Lipoprotein 53 mg/dL; Potassium 4.4 mmol/L (3.5-5.1); Sodium Level 138 mmol/L (136-145); Triglycerides 146 mg/dL; Very Low Density Lipoprotein 29 mg/dL (5-40)
== END | disposition home or self-care (01) ==
LOC: BIMLAB 08:36
PROVIDERS: PCP Internal Medicine; Referring Provider Internal Medicine; Visit Provider Internal Medicine
DX: I10 Essential (primary) hypertension (principal)
CPT/HCPCS: 36415; 80048; 80061

== ENCOUNTER → 2023-10-09 | Outpatient (CLI) | payer OTHER, SELFPAY ==
--- NOTE | 2023-10-09 07:05 | BI_ITS ---
MAMMOGRAPHY - BILATERAL SCREENING REASON FOR EXAM: Female, 38 years old. Routine annual screening examination. PERTINENT HISTORY: Grandmother with breast cancer. Aunt with breast cancer. TECHNIQUE: Digital bilateral breast cathy (3D mammographic acquisition) in the CC and MLO projections. 2-D mediolateral oblique (MLO) and craniocaudad (CC) views of both breasts were obtained. CAD: Full Field Digital Mammography with Computer Added Detection was performed. COMPARISON: Comparison is made with prior study dated July 05, 2022 and May 10, 2021. FINDINGS: Breast Composition: The breasts are heterogeneously dense, which may obscure small masses. There are no dominant masses or suspicious calcifications. Stable small benign-appearing bilateral axillary lymph nodes. No other significant abnormalities are identified. There has been no significant change since the prior study. BI/SCRN MAMM (CAD)W/CATHY BILAT IMPRESSION: Stable bilateral screening mammogram. Yearly follow-up mammogram recommended. (A) ASSESSMENT CATEGORY: BIRADS Category 2: Benign. A letter regarding these results will be sent to the patient by the facility within 30 days. Approximately 10% of breast cancers are not detected by mammography. A normal mammogram should not delay biopsy of a clinically suspicious abnormality. [id number] Electronically Signed: Shay Short MD at 8:43 EST ,
--- OUTSIDE RECORDS SUMMARY | 2023-10-09 07:20 | XMS RPT_ITS | CCD ---
Author Name Unknown Address [address] [place] [address] [address] [place] [address] Organization [facility] Care Team Providers Care Funeral Pre Need Consultant Name Role Phone FIORELLA PRESLEY Attending Unavailable PRESLEY, FIORELLA Referring Unavailable CEBUL, GUILLE Primary Care Unavailable PRESLEYFIORELLA Attending Unavailable SELF, SELF Referring Unavailable CEBUL, GUILLE Primary Care Unavailable SELF, SELF Referring Unavailable CEBUL, GUILLE Primary Care Unavailable Results Test Name Value Interpretation Reference Range Facil ity Encounters Encounter Date Encounter Type Care Provider Facility Start: 12-12-2021 ambulatory SELF SELF Facility:[facility] Start: 11-04-2021 ambulatory FIORELLA PRESLEY Facility:[facility] Payers Date Payer Category Payer Private Health Insurance [id number] 1985 Unknown [id number] [id number] 1985 Unknown [id number] [id number]. [id number] 1985 Unknown [id number]. [id number] Clinical Note 09-13-2021 Note Date & Type Note Facility 09-13-2021 Note Patient Outreach (NE TNAV) DADA ANGULO ([id number]) 1985 F Date Time Provider Department 09/13/21 KIMANI HILARIOT Cordell NIRU During your visit today, we recorded the following information about you: Abena Hilario Population Health Navigator 09/13/2021 10:31 AM Signed POPULATION HEALTH NAVIGATION OUTREACH Action/FYI I spoke with patient and she states she has a new pcp but didn't want her new pcp in her chart No care everywhere Updated pcp Contact made with patient or family member? YES Pt identified by name and : YES Outreach Outcome/Action Spoke to patient or caregiver: PCP confirmed / updated Patient declined Reason for Outreach Attribution: Provider Off-boarding Payer: Payor: AET[employer] / Plan: AET[employer] CHOICE POS II / Product Type: POS / Care Gap Reviewed:: Reminder: Reminder note to check Health Maintenance for items below Health Maintenance items due: COVID-19 VACCINE(1) Never done HIV SCREENING Never done BP CONTROLLED (<130/80) Never done ONE PNEUMOVAX PRIOR TO AGE 65 Never done DTAP,TDAP,TD(7 - Tdap) due on 04/05/2009 INFLUENZA(1) due on 05/25/2021 Advanced Directives Completed: Have you ever planned for future healthcare decisions with a power of tool dispatcher, living will, or advance directives? No. Please bring a copy to your next appointment or email to Referrals: N/A Message Sent to Practice: NO Navigation Signature: Abena Wyattlli Population Health Navigator September 13, 2021 10:30 AM Allergies As of Date: 09/13/2021 Noted Allergy Reaction CLINDAMYCIN 03/02/2006 TORADOL (KETOROLAC TROMETHAMINE) 07/11/2016 4 - Hives ZOFRAN (ONDANSETRON HCL (PF)) 07/11/2016 4 - Hives Date Reviewed: 12/16/2020 Reviewed by: Mc ([facility]) CYNTHIA Baer - Fully Assessed Reason for Visit: Population Health Navigation Outreach [3910] Cmt: Offboarding Prescriptions as of 09/13/2021 - OTC NUTRITIONAL SUPPLEMENT Take by mouth once daily. Yamileth Grant's Immunity Gummies - lisinopril (ZESTRIL, PRINIVIL) 5 mg tablet Take 1 tablet by mouth once daily. - vitamin B complex (B COMPLEX 1 ORAL) Take 15 Drops by mouth once daily. Meds Comments as of 06/03/2019: 06/03/19 Pt. only taking Lisinopril 5 mg. daily. Bethany Turpin RN Problem List As Of Date 09/13/2021 Noted Resolved COMMON MIGRAINE [346.1] 10/30/2006 Hives of unknown origin [L50.9] 04/14/2015 04/23/2016 Chronic urticaria [L50.8] 03/14/2016 Benign hypertension [I10] 04/23/2016 Right upper quadrant abdominal pain [R10.11] 10/16/2017 Obesity, Class II, BMI 35-39.9 [E66.9] 12/09/2018 Left lumbar radiculopathy [M54.16] 02/10/2019 Pneumonia of right middle lobe due to infectiou*11/28/2019 Elevated ALT measurement [R74.01] 06/14/2020 Encounter Status:Closed by YANELIS POPULATION HEALTH NAVIGATORABENA on 09/13/21 [facility] Progress note 09-13-2021 Note Date & Type Note Facility 09-13-2021 Note HNO ID: [id number] Author: Abena Hilario Population Health Navigator Service: ? Author Type: ? Type: Progress Notes Filed: 09/13/2021 10:31 AM Note Text: POPULATION HEALTH NAVIGATION OUTREACH Action/ I spoke with patient and she states she has a new pcp but didn't want her new pcp in her chart No care everywhere Updated pcp Contact made with patient or family member? YES Pt identified by name and : YES Outreach Outcome/Action Spoke to patient or caregiver: PCP confirmed / updated Patient declined Reason for Outreach Attribution: Provider Off-boarding Payer: Payor: AETNA / Plan: AETNA CHOICE POS II / Product Type: POS / Care Gap Reviewed:: Reminder: Reminder note to check Health Maintenance for items below Health Maintenance items due: COVID-19 VACCINE(1) Never done HIV SCREENING Never done BP CONTROLLED (<130/80) Never done ONE PNEUMOVAX PRIOR TO AGE 65 Never done DTAP,TDAP,TD(7 - Tdap) due on 04/05/2009 INFLUENZA(1) due on 05/25/2021 Advanced Directives Completed: Have you ever planned for future healthcare decisions with a power of tool dispatcher, living will, or advance directives? No. Please bring a copy to your next appointment or email to Referrals: N/A Message Sent to Practice: NO Navigation Signature: Abena Hilario Population Health Navigator September 13, 2021 10:30 AM [facility] Progress note 01-11-2021 Note Date & Type Note Facility 01-11-2021 Note HNO ID: [id number] Author: Guille Pavon III Service: ? Author Type: Physician Type: Progress Notes Filed: 01/11/2021 1:56 PM Note Text: called patient at 1340 SUBJECTIVE: This is a 35 year old female that is here today for --THIS APPT WAS A MISTAKE THE PATIENT WAS SEEN YESTERDAY BY KARLENE GREEN--NO CHARGE PAST MEDICAL HISTORY Diagnosis Date - NEGATIVE HISTORY OF Current Outpatient Medications on File Prior to Visit Medication Sig - OTC NUTRITIONAL SUPPLEMENT Take by mouth once daily. Yamileth Juanita's Immunity Gummies - lisinopril (ZESTRIL, PRINIVIL) 5 mg tablet Take 1 tablet by mouth once daily. - vitamin B complex (B COMPLEX 1 ORAL) Take 15 Drops by mouth once daily. No current facility-administered medications on file prior to visit. FAMILY HISTORY Problem Relation Age of Onset - Hypertension Father - Diabetes Maternal Grandfather - Breast Cancer Maternal Grandmother - Cancer Paternal Grandmother ovarian - DVT Mother Factor V negative - Heart Paternal Grandfather CHF Social History Tobacco Use - Smoking status: Never Smoker - Smokeless tobacco: Never Used Vaping Use - Vaping Use: Never used Substance Use Topics - Alcohol use: Yes Comment: occasional - Drug use: No LMP 12/07/2019 (Exact Date) . OBJECTIVE: ASSESSMENT: PLAN: NO CHARGE Guille Pavon III MD [facility] Progress note 01-10-2021 Note Date & Type Note Facility 01-10-2021 Note HNO ID: [id number] Author: Karlene Peres) [facility] Service: ? Author Type: Nurse Practitioner Type: Progress Notes Filed: 01/10/2021 11:47 AM Note Text: 01/10/2021 CC: sinus SUBJECTIVE: This is a 35 year old that is here today for Above Complaints. Thrusday of last week having a lot of pressure and sinus pain. Having lot of drainage. Coghing up mucous in morning.Using saline nasal spray, mucinex ans nasocart spray which is what ENT gave her last year which is helping break up the congestion. Denies fever, chills, fatigue, sore throat, loss of taste or smell, SOB, dyspnea, diarrhea, vomiting or nausea PAST MEDICAL HISTORY Diagnosis Date - NEGATIVE HISTORY OF ALLERGIES Clindamycin, Toradol [Ketorolac Tromethamine], and Zofran [Ondansetron Hcl (Pf)] MEDICATIONS Current Outpatient Medications Medication Sig - OTC NUTRITIONAL SUPPLEMENT Take by mouth once daily. Yamileth Grant's Immunity Gummies - lisinopril (ZESTRIL, PRINIVIL) 5 mg tablet Take 1 tablet by mouth once daily. - vitamin B complex (B COMPLEX 1 ORAL) Take 15 Drops by mouth once daily. No current facility-administered medications for this visit. Medications and allergies reviewed by this provider. SOCIAL HISTORY Social History Tobacco Use - Smoking status: Never Smoker - Smokeless tobacco: Never Used Vaping Use - Vaping Use: Never used Substance Use Topics - Alcohol use: Yes Comment: occasional - Drug use: No REVIEW OF SYSTEMS All other reviewed and negative other than HPI. OBJECTIVE: LMP 12/07/2019 (Exact Date) . Vital signs reviewed by this provider. APPEARANCE Well appearing, alert, in no acute distress, well-hydrated, well nourished. EYES conjunctiva and sclera normal. NOSE/SINUS negative findings: no sinus tenderness SKIN Skin color, texture, turgor normal, no suspicious rashes or lesions to exposed skin ASSESSMENT/PLAN: 1. Sinus congestion - ICD9: 478.19, ICD10: R09.81 - is improving with saline, Nasacort and mucinex - recommend she continue treatment - if re develops sinus pain, tenderness or fever is to let me know and at that time could treat as a sinus infection Karlene Galo, MICHAEL.GOVERNMENT RELATIONS MANAGER Prescription instructions reviewed with patient as applicable. Patient advised if symptoms do not improve or if symptoms worsen sooner, to contact their primary care physician. Potential red flag symptoms discussed with the patient. Reviewed appropriate action plan to take if red flag symptoms occur. Patient agreeable to treatment plan. [facility] Progress note 12-16-2020 Note Date & Type Note Facility 12-16-2020 Note HNO ID: [id number] Author: Guille Pavon III Service: ? Author Type: Physician Type: Progress Notes Filed: 12/16/2020 1:31 PM Note Text: SUBJECTIVE: This is a 35 year old female that is here today for follow up and 1. BP check 2. JOSE 09/1279 serotonin 436 (carcinoid syndrome ?) episode of facial flushing, diarrhea in Jun. denies fatigue, joint pain/swelling, persistent diarrhea, fever, malaise Current Outpatient Medications on File Prior to Visit Medication Sig - lisinopril (ZESTRIL, PRINIVIL) 5 mg tablet Take 1 tablet by mouth once daily. - omeprazole (PRILOSEC) 40 mg capsule Take 40 mg by mouth once daily. - potassium chloride ER (K-DUR, KLOR-CON) 20 mEq tablet Take 1 tablet by mouth once daily. - vitamin B complex (B COMPLEX 1 ORAL) Take 1 tablet by mouth once daily. No current facility-administered medications on file prior to visit. PAST MEDICAL HISTORY Diagnosis Date - NEGATIVE HISTORY OF FAMILY HISTORY Problem Relation Age of Onset - Hypertension Father - Diabetes Maternal Grandfather - Breast Cancer Maternal Grandmother - Cancer Paternal Grandmother ovarian - DVT Mother Factor V negative - Heart Paternal Grandfather CHF Social History Tobacco Use - Smoking status: Never Smoker - Smokeless tobacco: Never Used Vaping Use - Vaping Use: Never used Substance Use Topics - Alcohol use: Yes Comment: occasional - Drug use: No OBJECTIVE: APPEARANCE Well appearing, alert, in no acute distress, well-hydrated, well nourished. NECK Supple, no adenopathy; thyroid symmetric, normal size, no bruits BP 127/85 Pulse 85 Resp 16 Wt 106.6 kg (235 lb) LMP 12/07/2019 (Exact Date) BMI 39.11 kg/m? Lab Results for DADA ANGULO ( ) as of 12/16/2020 13:29 Ref. Range 07/17/2020 11:55 08/09/2020 11:56 Sodium Latest Ref Range: 136 - 144 mmol/L 137 Potassium Latest Ref Range: 3.7 - 5.1 mmol/L 4.3 Chloride Latest Ref Range: 97 - 105 mmol/L 103 CO2 Latest Ref Range: 22 - 30 mmol/L 20 (L) BUN Latest Ref Range: 7 - 21 mg/dL 17 Creatinine Latest Ref Range: 0.58 - 0.96 mg/dL 0.66 Glucose Latest Ref Range: 74 - 99 mg/dL 104 (H) Protein, Total Latest Ref Range: 6.3 - 8.0 g/dL 7.7 Albumin Latest Ref Range: 3.9 - 4.9 g/dL 4.4 Bilirubin, Total Latest Ref Range: 0.2 - 1.3 mg/dL 0.2 Bilirubin, Conjug Latest Ref Range: <0.2 mg/dL <0.2 Alkaline Phosphatase Latest Ref Range: 34 - 123 U/L 55 ALT Latest Ref Range: 7 - 38 U/L 19 AST Latest Ref Range: 13 - 35 U/L 23 Anion Gap Latest Ref Range: 9 - 18 mmol/L 14 Uric Acid Latest Ref Range: 2.5 - 6.6 mg/dL 4.2 eGFR- Unknown >60 eGFR-All Other Races Latest Units: . >60 Vitamin D 25 Hydroxy Latest Ref Range: 31.0 - 80.0 ng/mL 21.4 (L) Hematocrit Latest Ref Range: 36.0 - 46.0 % 42.1 Hep C Antibody IA Latest Ref Range: Negative Negative JOSE Latest Ref Range: Negative Positive (A) JOSE Titer Latest Ref Range: Negative 1:1,280 (A) JOSE Pattern Unknown Atypical speckled ANAP BBOBY Reflex Bill Unknown Billed for services performed JOSE by EIA, Qual Latest Ref Range: Negative Positive (A) Positive (A) JOSE by EIA Latest Units: OD Ratio 1.0 1.0 DNA Antibody w/Confirmation Latest Ref Range: <30 IU/mL <12 AGENT BROKER Antibody Latest Ref Range: <1.0 AI 1.4 (H) Ribosomal AGENT BROKER Latest Ref Range: <1.0 AI <0.2 SSB Antibody Latest Ref Range: <1.0 AI <0.2 Sm Antibody Latest Ref Range: <1.0 AI <0.2 SSA Antibody Latest Ref Range: <1.0 AI <0.2 Scleroderma Ab, IgG Latest Ref Range: <1.0 AI <0.2 Pili 1 Antibody Latest Ref Range: <1.0 AI <0.2 Chromatin Antibody Latest Ref Range: <1.0 AI 1.1 (H) Centromere Ab Latest Ref Range: <1.0 AI <0.2 Rheumatoid Factor Latest Ref Range: <16 IU/mL <10 C4 Latest Ref Range: 13 - 46 mg/dL 24 C1 Esterase Inhibitor Function Latest Ref Range: >=41 % 110 Galactose alph 1,3 Galactose IgE Latest Ref Range: <0.10 kU/L <0.10 Tryptase Latest Ref Range: <8.4 ug/L 2.0 Chromogranin A Latest Ref Range: <98 ng/mL 343 (H) 62 TSH Latest Ref Range: 0.270 - 4.200 uU/mL 0.428 Microsomal Antibody Latest Ref Range: <5.6 IU/mL <1.0 Serotonin Serum Latest Ref Range: 50 - 220 ng/mL 360 (H) 456 (H) WBC Latest Ref Range: 3.70 - 11.00 k/uL 11.41 (H) RBC Latest Ref Range: 3.90 - 5.20 m/uL 4.98 Hemoglobin Latest Ref Range: 11.5 - 15.5 g/dL 13.7 Platelet Count Latest Ref Range: 150 - 400 k/uL 439 (H) MCV Latest Ref Range: 80.0 - 100.0 fL 84.5 MCH Latest Ref Range: 26.0 - 34.0 pG 27.5 MCHC Latest Ref Range: 30.5 - 36.0 g/dL 32.5 MPV Latest Ref Range: 9.0 - 12.7 fL 11.0 RDW-CV Latest Ref Range: 11.5 - 15.0 % 14.0 Neut% Latest Units: % 64.2 Abs Neut (ANC) Latest Ref Range: 1.45 - 7.50 k/uL 7.32 Lymph% Latest Units: % 27.7 Abs Lymph Latest Ref Range: 1.00 - 4.00 k/uL 3.16 [place]% Latest Units: % 6.3 Abs [place] Latest Ref Range: <0.87 k/uL 0.72 Eosin% Latest Units: % 1.4 Abs Eosin Latest Ref Range: <0.46 k/uL 0.16 Baso% Latest Units: % 0.4 Abs Baso Latest Ref Range: <0.11 k/uL 0 (more content not included)... [facility] Progress note 12-08-2020 Note Date & Type Note Facility 12-08-2020 Note HNO ID: [id number] Author: Shell Steiner MA Service: ? Author Type: ? Type: Progress Notes Filed: 12/08/2020 12:29 PM Note Text: Care Gap Reviewed: Controlling Blood Pressure Phone call placed to patient. Pt identified by name and : YES Outreach Outcome/Action: Spoke to patient or caregiver: Patient scheduled in Primary Care If patient deferred or declined to schedule appointment, please indicate the reason(s): Alexa Steiner MA [facility] Clinical Note 12-08-2020 Note Date & Type Note Facility 12-08-2020 Note Patient Outreach (FA MPWS) DADA ANGULO ([id number]) 1985 F Date Time Provider Department 12/08/20 SHELL STEINER) JOSE F During your visit today, we recorded the following information about you: Shell Steiner MA 12/08/2020 12:29 PM Signed Care Gap Reviewed: Controlling Blood Pressure Phone call placed to patient. Pt identified by name and : YES Outreach Outcome/Action: Spoke to patient or caregiver: Patient scheduled in Primary Care If patient deferred or declined to schedule appointment, please indicate the reason(s): Alexa Steiner MA Allergies As of Date: 12/08/2020 Noted Allergy Reaction CLINDAMYCIN 03/02/2006 TORADOL (KETOROLAC TROMETHAMINE) 07/11/2016 4 - Hives ZOFRAN (ONDANSETRON HCL (PF)) 07/11/2016 4 - Hives Date Reviewed: 06/14/2020 Reviewed by: Mc ([facility]) CYNTHIA Bear - Fully Assessed Reason for Visit: Appointment [186] Cmt: HTN Prescriptions as of 12/08/2020 Sig: LISINOPRIL 5 MG TABLET Take 1 tablet by mouth once d* OMEPRAZOLE 40 MG CAPSULE,ADRIAN* Take 40 mg by mouth once candice* POTASSIUM CHLORIDE ER 20 MEQ * Take 1 tablet by mouth once d* B COMPLEX 1 ORAL Take 1 tablet by mouth once d* Problem List As Of Date 12/08/2020 Noted Resolved COMMON MIGRAINE [346.1] 10/30/2006 Hives of unknown origin [L50.9] 04/14/2015 04/23/2016 Chronic urticaria [L50.8] 03/14/2016 Benign hypertension [I10] 04/23/2016 Right upper quadrant abdominal pain [R10.11] 10/16/2017 Obesity, Class II, BMI 35-39.9 [E66.9] 12/09/2018 Left lumbar radiculopathy [M54.16] 02/10/2019 Pneumonia of right middle lobe due to infectiou*11/28/2019 Elevated ALT measurement [R74.01] 06/14/2020 Encounter Status:Closed by SHELL STEINER MA on 12/08/20 [facility] Summary Purpose Family History No Family History Records FoundNo Family History Records Found Advance Directives No Advanced Directives Records FoundNo Advanced Directives Records Found Additional Source Comments INFORMATION SOURCE (unrecogn ized section and content) DATE CREATED AUTHOR AUTHOR'S ORGANIZ ATION 03/01/2022 [facility] FOR RECORDS PERTAINING TO PATIENTS WHO ARE OR HAVE BEEN ENROLLED IN A CHEMICAL DEPENDENCY/SUBSTANCEABUSE PROGRAM, SOME INFORMATION MAY BE OMITTED. This clinical summary was aggregated from multiple sources. Caution should be exercised in using it in the provision of clinical care. This summary normalizes information from multiple sources, and as a consequence, information in this document may materially change the coding, format and clinical context of patient data. In addition, data may be omitted in some cases. CLINICAL DECISIONS SHOULD BE BASED ON THE PRIMARY CLINICAL RECORDS. [employer] provides no warranty or guarantee of the accuracy or completeness of information in this document.
== END | disposition home or self-care (01) ==
LOC: OPBI 07:05
PROVIDERS: PCP Internal Medicine; Referring Provider Obstetrics & Gynecology; Visit Provider Obstetrics & Gynecology
DX: Z12.31 Encounter for screening mammogram for malignant neoplasm of breast (principal)
CPT/HCPCS: 77063; 77067

== ENCOUNTER → 2023-12-24 | Outpatient (CLI) | payer OTHER, SELFPAY ==
[2023-12-24 10:21] LABS: ALB/GLOB Ratio 0.9 RATIO (0.9-2.4); AST(SGOT) 19 U/L (15-37); Alanine Aminotransfer ALT/SGPT 28 U/L (13-56); Albumin, Serum 3.3 g/dL (3.2-5.0); Alkaline Phosphatase 40 U/L (45-117); Anion Gap 6 (5-15); BUN 20 mg/dL (7-18); BUN/Creat Ratio 27.5 RATIO (10-20); Calcium,Total 8.9 mg/dL (8.5-10.1); Chloride 105 mmol/L (98-107); Cholesterol 179 mg/dL (200); Creatinine, Serum 0.73 mg/dL (0.55-1.02); EST Glomerular Filtration Rate 94 mL/min (>60); Est Glom Filt Rate - Afr Amer 114 mL/min (>60); Globulin 3.8 g/dL (2.2-4.2); Glucose 101 mg/dL (74-106); High Density Lipoprotein 54 mg/dL; Potassium 4.1 mmol/L (3.5-5.1); Protein, Total 7.1 g/dL (6.4-8.2); Sodium Level 138 mmol/L (136-145); Triglycerides 137 mg/dL; Very Low Density Lipoprotein 27 mg/dL (5-40)
== END | disposition home or self-care (01) ==
PROVIDERS: PCP Internal Medicine; Referring Provider Internal Medicine; Visit Provider Internal Medicine
DX: E78.2 Mixed hyperlipidemia (principal)
CPT/HCPCS: 36415; 80053; 80061

== ENCOUNTER → 2024-01-30 | Outpatient (CLI) | payer OTHER, SELFPAY ==
--- NOTE | 2024-01-30 16:43 | US_ITS ---
INDICATION: pelvic pain EXAMINATION: Ultrasound US Pelvis Non OB Complete With Transvaginal Imaging TECHNIQUE: Transabdominal and transvaginal pelvic ultrasound was performed. Grayscale, spectral waveform, and color flow Doppler evaluation of the adnexa. COMPARISON: FINDINGS: UTERUS: Anteverted. The uterus measures 10.9 x 8.3 x 7.0 cm. There is a hypoechoic 1.2 x 1.3 x 1 cm lesion of the myometrium. This is not a heterogeneous 4 x 2.9 x 3.9 cm posterior uterine lesion, possibly related to fibroids. The endometrial stripe measures 24 mm in AP diameter which is thickened with hyperechogenicity. Nabothian cysts. RIGHT OVARY: 4.7 x 2.5 x 2.6 cm. There is a complex 2.9 x 1.9 x 1.9 cm cystic lesion. There is normal arterial inflow and venous outflow present in the right ovary. LEFT OVARY: 3.5 x 3.1 x 2.2 cm. There is a 1 x 0.9 x 1.2 cm left adnexal cystic nodule. There is normal arterial inflow and venous outflow present in the left ovary. FREE FLUID: None. US/Pelvic w/ Transvaginal IMPRESSION: Bilateral adnexal cystic lesions is noted. Uterine fibroids. Nabothian cysts. Thickened endometrium. Electronically Signed: Michael Abbott DO at 22:58 EDT Reading Location ID and State: [facility] / [place] Tel [phone], Service support ,
== END | disposition home or self-care (01) ==
LOC: US 16:42
PROVIDERS: PCP Internal Medicine; Referring Provider Obstetrics & Gynecology; Visit Provider Obstetrics & Gynecology
DX: R10.2 Pelvic and perineal pain (principal)
CPT/HCPCS: 76830; 76856

== ENCOUNTER → 2024-02-15 | Outpatient (CLI) | payer OTHER, SELFPAY ==
--- NOTE | 2024-02-15 08:00 | US_ITS ---
EXAM: US PELVIS TRANSABDOMINAL LIMITED AND TRANSVAGINAL CLINICAL INDICATION: pelvic pain RIGHT -- PREVIOUSLY SCANNED 01/30/24 TECHNIQUE: Transabdominal (limited) and endovaginal pelvic ultrasound was performed with grayscale and color Doppler imaging. Endovaginal imaging was used for better evaluation of the endometrium and adnexa. COMPARISON: US Pelvis Transabdominal Limited Endovaginal dated 01/30/2024 FINDINGS: UTERUS/CERVIX: Endometrial thickness is 16 mm. Multiple small uterine fibroids noted largest one measuring 3 cm in diameter. Small nabothian cysts again noted. Uterus measures 10.9 x 6.8 x 5.5 cm. RIGHT OVARY: Normal. Blood flow is present in the right ovary. The right ovary measures 4.0 x 3.2 x 2.0 cm. LEFT OVARY: Normal. Blood flow is present in the left ovary. The left ovary measures 4.4 x 3.7 x 1.9 cm. FREE FLUID: None. US/Pelvic (Non ) IMPRESSION: 1. Multiple uterine fibroids. 2. Thickened endometrium which may represent late secretory phase of menstrual cycle. Electronically Signed: Jose Price MD at 13:46 EDT ,
== END | disposition home or self-care (01) ==
LOC: OPUS 07:58
PROVIDERS: PCP Internal Medicine; Referring Provider Obstetrics & Gynecology; Visit Provider Obstetrics & Gynecology
DX: R10.2 Pelvic and perineal pain (principal)
CPT/HCPCS: 76830; 76856

== ENCOUNTER → 2024-04-25 | Outpatient (CLI) | payer OTHER, SELFPAY ==
[2024-04-25 11:22] LABS: Absolute Lymphocyte Count 2.36 X10^3/uL (0.83-4.51); Absolute Neutrophil Count 4.7 X10^3/uL (2.0-7.7); Basophil# 0.05 X10^3/uL; Basophil% 0.6 % (0-1); Eosinophil# 0.16 X10^3/uL; Hematocrit 39.5 % (37-47); Hemoglobin 12.9 g/dL (12.0-15.0); Lymphocyte # 2.36 X10^3/ul (0.83-4.51); Lymphocyte % 29.5 % (19-41); Mean Corp Hgb Conc 32.7 g/dL (32-36); Mean Corpuscular Hgb 27.1 pg (27.0-32.0); Mean Platelet Vol. 10.2 fl (6.2-12.0); Monocyte# 0.68 X10^3/uL; Monocyte% 8.5 % (0-10); NRBC Flagged by Analyzer 0 % (0-5); Neutrophil # 4.72 X10^3/uL (2.7-7.7); Platelet Count 400 K/mm3 (150-450); RBC Distribution Width CV 13.4 % (11.6-14.6); Red Blood Count 4.76 M/mm3 (4.2-5.4)
[2024-04-25 11:28] LABS: ALB/GLOB Ratio 0.8 RATIO (0.9-2.4); AST(SGOT) 19 U/L (15-37); Alanine Aminotransfer ALT/SGPT 22 U/L (13-56); Albumin, Serum 3.5 g/dL (3.2-5.0); Alkaline Phosphatase 46 U/L (45-117); Anion Gap 6 (5-15); BUN 16 mg/dL (7-18); BUN/Creat Ratio 21.9 RATIO (10-20); Chloride 107 mmol/L (98-107); Cholesterol 166 mg/dL (200); Creatinine, Serum 0.73 mg/dL (0.55-1.02); EST Glomerular Filtration Rate 94 mL/min (>60); Est Glom Filt Rate - Afr Amer 114 mL/min (>60); Globulin 4.3 g/dL (2.2-4.2); Glucose 91 mg/dL (74-106); High Density Lipoprotein 57 mg/dL; Protein, Total 7.8 g/dL (6.4-8.2); Sodium Level 140 mmol/L (136-145); T4 Free Direct 0.97 ng/dL (0.76-1.46); Thyroid Stim Hormone (TSH) 0.63 uIU/mL (0.358-3.74); Triglycerides 89 mg/dL; Very Low Density Lipoprotein 18 mg/dL (5-40)
== END | disposition home or self-care (01) ==
LOC: BIMLAB 08:56
PROVIDERS: PCP Internal Medicine; Referring Provider Internal Medicine; Visit Provider Internal Medicine
DX: Z00.00 Encounter for general adult medical examination without abnormal findings (principal); Z13.29 Encounter for screening for other suspected endocrine disorder
CPT/HCPCS: 36415; 80053; 80061; 84439; 84443; 85025

== ENCOUNTER → 2024-05-09 | Outpatient (CLI) | payer OTHER, SELFPAY ==
[2024-05-14 17:07] LABS: HPV APTIMA, High Risk Negative (Negative)
== END | disposition home or self-care (01) ==
LOC: LABSPEC 16:56
PROVIDERS: PCP Internal Medicine; Referring Provider Obstetrics & Gynecology; Visit Provider Obstetrics & Gynecology
DX: Z12.4 Encounter for screening for malignant neoplasm of cervix (principal)
CPT/HCPCS: 87624; 88175; G0145

== ENCOUNTER → 2024-05-27 | Outpatient (CLI) | payer OTHER, SELFPAY ==
[2024-05-27 18:28] LABS: Estradiol 39.4 pg/mL; Luteinizing Hormone 2.3 mIU/mL
== END | disposition home or self-care (01) ==
LOC: MTLAB 15:52
PROVIDERS: PCP Internal Medicine; Referring Provider Obstetrics & Gynecology; Visit Provider Obstetrics & Gynecology
DX: N92.6 Irregular menstruation, unspecified (principal)
CPT/HCPCS: 36415; 82627; 82670; 83001; 83002; 82626

== ENCOUNTER → 2024-06-17 | Outpatient (CLI) | payer OTHER, SELFPAY ==
[2024-06-17 13:53] LABS: Estradiol 297.2 pg/mL
== END | disposition home or self-care (01) ==
LOC: MTLAB 07:05
PROVIDERS: PCP Internal Medicine; Referring Provider Obstetrics & Gynecology; Visit Provider Obstetrics & Gynecology
DX: N92.6 Irregular menstruation, unspecified (principal)
CPT/HCPCS: 36415; 82670

== ENCOUNTER → 2024-09-22 | Outpatient (CLI) | payer OTHER, SELFPAY ==
[2024-09-22 13:41] LABS: Bacteria 0 SEEN /hpf (None Seen); Mucous, Urine 0 SEEN /hpf (<or=2+); Red Blood Cells-Urine 0 SEEN /hpf (0-5); Squamous Epithelial Cells - UA 0 SEEN /hpf (5-10)
[2024-09-22 15:18] LABS: Color, Urine Straw (Yellow); Glucose, Dipstick Normal (Normal); Ketone-Dipstick Negative (Negative); Leukocyte Esterase-Dipstick 25 /ul (Negative); Nitrite-Dipstick Negative (Negative); Occult Blood-Urine 10 /ul (Negative); Protein-Dipstick Negative (Negative); Urine Bilirubin Dipstick Negative (Negative); Urine Clarity Clear (Clear); Urine Urobilinogen Normal (Normal); Urine pH 6.5 (5.0 - 8.0)
[2024-09-22 19:59] LABS: White Blood Cells 5-10 SEEN /hpf (0-5)
== END | disposition home or self-care (01) ==
LOC: LABSPEC 13:40
PROVIDERS: PCP Internal Medicine; Referring Provider Internal Medicine; Visit Provider Internal Medicine
DX: R39.15 Urgency of urination (principal)
CPT/HCPCS: 81001; 87086

== ENCOUNTER → 2024-10-10 | Outpatient (CLI) | payer OTHER, SELFPAY ==
--- NOTE | 2024-10-10 16:45 | CT_ITS ---
INDICATION: Abdomen pain, urinary frequency EXAMINATION: CT Abdomen And Pelvis W/O Contrast Injection TECHNIQUE: Helically acquired images were obtained of the abdomen and pelvis without the use of IV contrast. A radiation dose optimization technique was used for this scan. Oral contrast: None. COMPARISON: None FINDINGS: Evaluation of the solid organs and vascular structures is limited without intravenous contrast. Visualized lung bases: Unremarkable Liver: Diffusely hypodense consistent with fatty liver. Gallbladder: Unremarkable Spleen: Unremarkable Pancreas: Unremarkable Adrenal Glands: Unremarkable Kidneys: 9 mm nonobstructing stone in the right lower renal pole. Vasculature: Mild scattered aortoiliac atherosclerotic calcifications. GI Tract: The appendix is normal. Lymphadenopathy: None Peritoneum: No ascites. Bladder: Unremarkable Reproductive organs: Unremarkable Bones/Soft tissues: No suspicious osseous or soft tissue lesions CT/Abdomen/Pelvis without Cont IMPRESSION: No acute abnormalities in the abdomen or pelvis. Nonobstructive nephrolithiasis on the right. Electronically Signed: Rodrigo Sy MD at 9:51 EST ,
== END | disposition home or self-care (01) ==
LOC: CT 16:45
PROVIDERS: PCP Internal Medicine; Referring Provider Internal Medicine; Visit Provider Internal Medicine
DX: R10.9 Unspecified abdominal pain (principal); R39.15 Urgency of urination
CPT/HCPCS: 74176

== ENCOUNTER → 2024-10-13 | Outpatient (CLI) | payer OTHER, SELFPAY ==
--- NOTE | 2024-10-13 07:16 | BI_ITS ---
MAMMOGRAPHY - BILATERAL SCREENING REASON FOR EXAM: Female, 39 years old. Routine annual screening examination. PERTINENT HISTORY: Grandmother with breast cancer. Aunt with breast cancer. TECHNIQUE: Digital bilateral breast cathy (3D mammographic acquisition) in the CC and MLO projections. 2-D mediolateral oblique (MLO) and craniocaudad (CC) views of both breasts were obtained. CAD: Full Field Digital Mammography with Computer Added Detection was performed. COMPARISON: Comparison is made with prior study dated April 08, 2024 and July 05, 2022. FINDINGS: Breast Composition: The breasts are heterogeneously dense, which may obscure small masses. There are no dominant masses or suspicious calcifications. Stable small fat-containing bilateral axillary lymph nodes. No other significant abnormalities are identified. There has been no significant change since the prior study. BI/SCRN MAMM (CAD)W/CATHY BILAT IMPRESSION: Stable bilateral screening mammogram. Yearly follow-up mammogram recommended. (A) ASSESSMENT CATEGORY: BIRADS Category 2: Benign. A letter regarding these results will be sent to the patient by the facility within 30 days. Approximately 10% of breast cancers are not detected by mammography. A normal mammogram should not delay biopsy of a clinically suspicious abnormality. [id number] Electronically Signed: Shay Short MD at 9:47 EST ,
== END | disposition home or self-care (01) ==
LOC: OPBI 07:15
PROVIDERS: PCP Internal Medicine; Referring Provider Obstetrics & Gynecology; Visit Provider Obstetrics & Gynecology
DX: Z12.31 Encounter for screening mammogram for malignant neoplasm of breast (principal); Z80.3 Family history of malignant neoplasm of breast
CPT/HCPCS: 77063; 77067

== ENCOUNTER → 2024-12-24 | Outpatient (CLI) | payer OTHER, SELFPAY ==
[2024-12-24 12:42] LABS: Basophil# 0.05 X10^3/uL; Basophil% 0.6 % (0-1); Eosinophil# 0.12 X10^3/uL; Eosinophils% 1.4 % (0-5); Hematocrit 39.7 % (37-47); Hemoglobin 13.2 g/dL (12.0-15.0); Lymphocyte % 30.7 % (19-41); Mean Corp Hgb Conc 33.2 g/dL (32-36); Mean Corpuscular Hgb 27.9 pg (27.0-32.0); Mean Corpuscular Volume 83.9 fL (81-99); Mean Platelet Vol. 10.2 fl (6.2-12.0); Monocyte# 0.65 X10^3/uL; Monocyte% 7.7 % (0-10); NRBC Flagged by Analyzer 0 % (0-5); Neutrophil # 5.02 X10^3/uL (2.7-7.7); Neutrophil % 59.2 % (47-70); Platelet Count 396 K/mm3 (150-450); RBC Distribution Width SD 39.4 fl (35.1-43.9); Red Blood Count 4.73 M/mm3 (4.2-5.4); White Blood Count 8.5 K/mm3 (4.4-11.0)
[2024-12-24 16:54] LABS: Cholesterol 179 mg/dL (<=200); High Density Lipoprotein 52 mg/dL; Low Density Lipoprotein Calc. 100 mg/dL; Triglycerides 140 mg/dL; Very Low Density Lipoprotein 28 mg/dL (5-40); cholesterol:hdl ratio screen 3.48
[2024-12-24 17:58] LABS: ALB/GLOB Ratio 1.3 RATIO (0.9-2.4); AST(SGOT) 25 U/L (<=31); Alanine Aminotransfer ALT/SGPT 28 U/L (<=34); Albumin, Serum 4.3 g/dL (3.5-5.0); Alkaline Phosphatase 48 U/L (35-104); Anion Gap 13 (5-15); BUN 19 mg/dL (4-19); BUN/Creat Ratio 25.7 RATIO (10-20); Calcium,Total 9.3 mg/dL (7.6-11.0); Carbon Dioxide 22.2 mmol/L (21.0-32.0); Chloride 103 mmol/L (98-108); Creatinine, Serum 0.73 mg/dL (0.70-1.20); EST Glomerular Filtration Rate 107 (>60); Globulin 3.3 g/dL (2.2-4.2); Glucose 94 mg/dL (70-99); Potassium 4.4 mmol/L (3.3-5.1); Protein, Total 7.6 g/dL (5.9-8.4); Sodium Level 138 mmol/L (133-145); Total Bilirubin 0.23 mg/dL (0.00-1.30)
== END | disposition home or self-care (01) ==
LOC: BIMLAB 09:06
PROVIDERS: PCP Internal Medicine; Referring Provider Internal Medicine; Visit Provider Internal Medicine
DX: Z00.00 Encounter for general adult medical examination without abnormal findings (principal)
CPT/HCPCS: 36415; 80053; 80061; 85025

== ENCOUNTER 2025-05-11 16:15 | Outpatient (CLI) | payer OTHER, SELFPAY ==
[2025-05-18 13:09] LABS: HPV APTIMA, High Risk Negative (Negative)
== END 2025-05-11 23:59 | disposition home or self-care (01) ==
LOC: LABSPEC 16:16
PROVIDERS: PCP Internal Medicine; Referring Provider Obstetrics & Gynecology; Visit Provider Obstetrics & Gynecology
DX: Z12.4 Encounter for screening for malignant neoplasm of cervix (principal)
CPT/HCPCS: 87624; 88175; G0145

== ENCOUNTER → 2025-06-01 | Outpatient (CLI) | payer OTHER, SELFPAY ==
--- NOTE | 2025-06-01 | EMB_PTH ---
PATIENT: DADA ANGULO LOC: [facility] U#:[id number] AGE/SX: 39/F ROOM: RE06/01/[address]: DAMIAN Vargas : 1985 BED: DIS: 06/01/2025 SPEC #: [id number] RECD: 06/01/25 12:14 STATUS: KIMBERLY REQ #: [id number] SAILAJA: 06/01/25 00:[address]: Deidre Mcdaniels NP DEPT: SURGICAL PATHOLOGY RECD BY: Clifford Arciniega ENTERED: 06/01/25 15:08 SP TYPE: ENDOM BX/C LILI DR: Dr. Neela Soni MD Tissues: A - Endometrium, NOS Procedures: Surgery Specimen Level IV HEADER OPERATION: EMB PRE-OP DIAGNOSIS: AUB TISSUE SUBMITTED: Endometrial Lining MICROSCOPIC DIAGNOSIS A. Endometrium, biopsy: Proliferative endometrium. MICROSCOPIC DESCRIPTION Slides are reviewed. GROSS DESCRIPTION A. Received in formalin labeled the patient's name and date of is a 2.8 x 1.8 x 0.2 cm aggregate of pink-red tissue fragments and mucoid material. Entirely submitted in 1 cassette. PR 06/01/2025 CPT:27151
--- OUTSIDE RECORDS SUMMARY | 2025-06-01 20:18 | XMS RPT_ITS | CCD ---
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 By: #### L 7400.0280 ####[facility] [address] [place], [place], [id number] HPV Nancy Rfx Comment Normal . [facility] Comment on above: Order Comment: Speci men Comment: [id number] Comment: No. of containers..01 ThinPrep Vial Result Comment: Crit eria not met, HPV Genotype not performed. Performed at: - [address] [id number] Satin Finisher: Amber Toribio MD, Phone: [phone] Performed at: = - [address] [id number] Satin Finisher: Amber Toribio MD, Phone: [phone] Performed By: #### L 7400.0280 ####[facility] [address] [place], [address] PAPSMR Comment Normal . [facility] Comment on above: Order Comment: Speci men Comment: [id number] Comment: No. of containers..01 ThinPrep Vial Result Comment: The Pap smear is a screening test designed to aid in the detection of premalignant and malignant conditions of the uterine cervix. It is not a diagnostic procedure and should not be used as the sole means of detecting cervical cancer. Both false-positive and false-negative reports do occur. Performed By: #### L 7400.0280 ####[facility] [address] [place], [place], [id number] PERFORM Comment Normal . [facility] Comment on above: Order Comment: Speci men Comment: [id number] Comment: No. of containers..01 ThinPrep Vial Result Comment: Néstor Almanzar, Iron Launder Operator (ASCP) Performed By: #### L 7400.0280 ####[facility] [address] [place], [address] QC REV Comment Normal . [facility] Comment on above: Order Comment: Speci men Comment: [id number] Comment: No. of containers..01 ThinPrep Vial Result Comment: Mary Davis, Iron Launder Operator Performed By: #### L 7400.0280 ####[facility] [address] [place], [address] Internal Medicine Office Vis iton 05-15-2025 Internal Medicine Office Visit [facility] [address] [place] [address] [place] [address] OFFICE VISIT Date of Service: 05/15/25 MR#: [id number] Acct: [id number] Name: DADA ANGULO Rep #: [id number] : 1985 Provider: Dr. 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 Accompanied by: Self Is patient in pain?: No Allergies ondansetron (From Zofran (as hydrochloride)) Allergy (Intermediate, Verified 05/15/25 08:07) Hives clindamycin Allergy (Verified 05/15/25 08:07) Hives ketorolac Allergy (Verified 05/15/25 08:07) Hives Medications ???Medication ???Instructions ???Recorded ???Confirmed ???Type multivitamin 1 tab PO DAILY 12/26/23 05/15/25 H istory epinephrine 0.3 mg/0.3 mL 0.3 mg (0.3 mL) IM Q5-15M PRN 08/24 08/22/25 Rx injection, auto-injector (EpiPen anaphylaxis #2 ea 2-Jonh) cefdinir 300 mg capsule 300 mg PO BID 05/15/25 05/15/25 Hi story cetirizine 5 mg tablet 5 mg PO QDAY 05/15/25 05/15/25 His tory lisinopril 5 mg tablet See Rx Instructions .Route 5 05/15/25 Rx .COMPLEX #180 tabs methylprednisolone 4 mg tablets in mg PO QDAY 05/15/25 05/15/25 His tory a dose pack rosuvastatin 10 mg tablet 10 mg PO DAILY #90 tabs 05/15/25 0 05/15/25 Rx PFSH Medical History COVID Urinary urgency Tachycardia Influenza-like symptoms Recurrent sinusitis Allergies Change in bowel habit RUQ abdominal pain History of kidney stones Ovarian cyst Hemorrhoid Seasonal allergies Sinusitis Dermatitis Obesity Hyperlipidemia Low TSH level GERD (gastroesophageal reflux disease) Right sided abdominal pain Hives Elevated antinuclear antibody (JOSE) level Obesity, Class III, BMI 40-49.9 (morbid obesity) Hypertension Back ache Surgical History History of removal of skin mole Hx of tonsillectomy History of discectomy Family History Father History of blood clots Mother History of blood clots Grandmother History of blood clots Breast cancer Cancer Thyroid Grandfather Diabetes Hypertension Myocardial infarction, Onset Age: 57 paternal Social History Smoking Status: Never smoker alcohol intake: current alcohol intake frequency: holidays/special occasions only Alcohol type: wine substance use type: does not use caffeine: Yes what type of physical activity do you participate in: none seatbelt use: always do you feel safe at home: Yes additional social history: - Kevin HPI HPI Chief Complaint: Follow-up chronic conditions Details: DADA ANGULO, is a 39 F who presents to the office today for follow-up of her chronic conditions. No acute concerns at this time. History of recurrent sinusitis status post another episode following recent trip to [place]. Was seen by ENT and prescribed cefdinir and prednisone. Symptoms have improved. No new concerns reported in that regard. History of hypertension, pressure today is at 110/68 mmHg. Taking her medication consistently. No syncopal or near syncopal episodes. Has also been making dietary and lifestyle changes and feels well overall. All other chronic conditions are stable. ROS Const Constitutional: No body ache, excessive sweating, fatigue, fever(s), frequent falls, headache(s), snoring, weakness, weight change, sleep problems or change in appetite Eyes Eyes: No blurry vision, change in vision, vision loss, dry eyes, bulging eyes, floaters, visual disturbances, eye pain or Light sensitivity ENT ENT: Positive for nasal congestion; No abnormal hearing, ear or mastoid pain, tinnitus, balance problems, nosebleed/epistaxis, headache(s), lip swelling, mouth lesions, neck pain or sore throat Resp Respiratory: Positive for chest congestion; No cough, excessive phlegm production, pain on inspiration, shortness of breath, snoring or wheezing Cardio Cardiology: No chest pain at rest, chest pain with exertion, excessive sweating, shortness of breath, dyspnea on exertion, lightheadedness, orthopnea or palpitations Gastro GI: No abdominal pain, change in bowel habits, constipation, cramping, diarrhea, nausea/dyspepsia or vomiting Genitourinary-Female : No burning urination, painfu (more content not included)... Normal [facility] Cervical or vaginal specimen microscopic examination by liquid based cytology (reportOrdered By: Randa Gray on 05-11-2025 Cytology report Cyto stain.thin prep Doc (Cvx/Vag) Comment . [facility] Comment on above: Criteria not met, HP V Genotype not performed.Performed at: - [address] [id number] Director: Amber Toribio MD, Phone: [phone] at: = - [address] [id number] Director: Amber Toribio MD, Phone: [phone] Cervical or vagninal specime n microscopic examination by cytology stain (reported asOrdered By: Randa Gray on 05-11-2025 Cytology report Cyto stain Doc (Cvx/Vag) Comment . [facility] Comment on above: The Pap smear is a s creening test designed to aid in thedetection of premalignant and malignant conditions of theuterine cervix. It is not a diagnostic procedure andshould not be used as the sole means of detecting cervicalcancer. Both false-positive and false-negative reports dooccur. Detection in cervical specim en of any of human papilloma virus (HPV) 16, 18, 31, 33,Ordered By: Randa Gray on 05-11-2025 HPV 16+18+31+33+35+39+45+51+ 52+56+58+59+66+68 DNA Probe+sig amp Ql (Cvx) Negative Negative [facility] Comment on above: This nucleic acid am plification test detects fourteen high-risk HPV types (16,18,31,33,35,39,45,51,52,56,58,59,66,68)without differentiation. Laboratory - CytologyOrdered By: Randa Gray on 05-11-2025 Iron Launder Operator Cyto stain Nom (Cvx/Vag) [ID] Comment . [facility] Comment on above: Farooq Almanzar Cytolog ist (ASCP) Laboratory - Miscellaneous t estsOrdered By: Randa Gray on 05-11-2025 Service comment (Unsp spec) [Interp] . . [facility] No Panel InformationOrdered By: Randa Gray on 05-11-2025 Pap Smear QC Review Comment . [facility] Comment on above: Nilton Khanna tologagnieszka Pap Smear Specimen Adequacy Comment . [facility] Comment on above: Satisfactory for nayla luation. No endocervical component is identified. [facility] Office Visit Reporton 05-11-2025 [facility] Office Visit Report [facility] [address], [address] [place] [address] OFFICE VISIT Date of Service: 05/11/25 MR#: [id number] Acct: [id number] Name: DADA ANGULO Rep #: [id number] : 1985 Provider: Dr. 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 Is patient in pain?: No Allergies ondansetron (From Zofran (as hydrochloride)) Allergy (Intermediate, Verified 05/11/25 15:01) Hives clindamycin Allergy (Verified 05/11/25 15:01) Hives ketorolac Allergy (Verified 05/11/25 15:01) Hives Medications ???Medication ???Instructions ???Recorded ???Confirmed ???Type multivitamin 1 tab PO DAILY 12/26/23 05/11/25 H istory epinephrine 0.3 mg/0.3 mL 0.3 mg (0.3 mL) IM Q5-15M PRN 11/1705/11/25 Rx injection, auto-injector (EpiPen anaphylaxis #2 ea 2-Jonh) lisinopril 5 mg tablet See Rx Instructions .Route 5 05/11/25 Rx .COMPLEX #180 tabs rosuvastatin 10 mg tablet 10 mg PO DAILY #90 tabs 12/24/24 0 05/11/25 Rx Post menopausal: No Patient : No : No PFSH Medical History (Updated 05/11/25 @ 15:[address] Randa Rajput, DO) COVID Urinary urgency Tachycardia Influenza-like symptoms Recurrent sinusitis Allergies Change in bowel habit RUQ abdominal pain History of kidney stones Ovarian cyst Hemorrhoid Seasonal allergies Sinusitis Dermatitis Obesity Hyperlipidemia Low TSH level GERD (gastroesophageal reflux disease) Right sided abdominal pain Hives Elevated antinuclear antibody (JOSE) level Obesity, Class III, BMI 40-49.9 (morbid obesity) Hypertension Back ache Surgical History History of removal of skin mole Hx of tonsillectomy History of discectomy Family History Father History of blood clots Mother History of blood clots Grandmother History of blood clots Breast cancer Cancer Thyroid Grandfather Diabetes Hypertension Myocardial infarction, Onset Age: 57 paternal Social History (Updated 05/11/25 @ 15:10 by Kalina Frankel) Smoking Status: Never smoker alcohol intake: current alcohol intake frequency: holidays/special occasions only Alcohol type: wine substance use type: does not use caffeine: Yes what type of physical activity do you participate in: none seatbelt use: always do you feel safe at home: Yes additional social history: - Kevin History 3 Elective abortions Hx Para 2 Spontaneous abortions Hx # Term Pregnancies Ectopic pregnancies Hx # Pregnancies Multiple births # of living children 2 Past Pregnancies Del. 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 The patient reports irregular menstrual cycles, with periods sometimes skipping months and then occurring with increased severity. Her last menstrual cycle was closer to the expected date, which was a surprise. The cycles last three to four days, with the first two days being particularly heavy, leading to bleeding through protection. The patient has a history of uterine fibroids, identified in a previous ultrasound as small fibroids beginning to grow. The largest fibroid measures almost 3 cm, with others being smaller. The uterus is slightly enlarged, measuring 11 cm, which may contribute to the heavy bleeding. The patient has a family history of ovarian cancer, which increases her concern about her symptoms. She is aware that only a small percentage of cancers are hereditary, but the family history remains a concern. Preventative care measures include regular Pap smears, which the patient prefers to have annually due to her family history. Attestation: Documentation on this patient encounter was supported using ambient scribe technology/ voice AI technology. The patient consented to recording for the purpose of documenting the encounter. Provider reviewed content of the generated note prior to signature. EXAM: US PELVIS TRANSABDOMINAL LIMITED AND TRANSVAGINAL CLINICAL INDICATION: pelvic pain RIGHT -- PREVIOUSLY SCANNED (more content not included)... Normal [facility] Absolute neutrophil countOrd ered By: Neela Soni on 12-24-2024 Neutrophils (Bld) [#/Vol] 5.0 10*3/uL 2.0-7.7 [facility] Anion gap in Serum or Plasma Ordered By: Neela Soni on 12-24-2024 Anion gap [Moles/Vol] 13 mmol/L 5-15 [facility] BUN/creatinine ratioOrdered By: Neela Soni on 12-24-2024 Urea nitrogen/Creatinine [Mass ratio] 25.7 mg/mg High 10-20 [facility] Basophil percentageOrdered B y: Neela Soni on 12-24-2024 Basophils/100 WBC (Bld) 0.6 % 0-1 [facility] [place] Bilirubin, totalOrdered By: Neela Soni on 12-24-2024 Bilirubin [Mass/Vol] 0.23 mg/dL 0.00-1.30 [facility] CBC W/Diff, Automatedon Absolute Lymph 2.60 X10 3/uL Normal 0.83-4.51 [facility] Comment on above: Performed By: #### L 500.4050, L500.4100, L100.0100 #### [facility] [address] [place], [address] Absolute Neut 5.0 X10 3/uL Normal 2.0-7.7 [facility] Comment on above: Performed By: #### L 500.4050, L500.4100, L100.0100 #### [facility] [address] [place], [address] Basophils/100 WBC (Bld) 0.6 % Normal 0-1 [facility] Comment on above: Performed By: #### L 500.4050, L500.4100, L100.0100 #### [facility] [address] [place], [address] Eosinophils/100 WBC (Bld) 1.4 % Normal 0-5 [facility] Comment on above: Performed By: #### L 500.4050, L500.4100, L100.0100 #### [facility] [address] [place], [address] Erythrocyte distribution width (RBC) [Ratio] 13.0 % Normal 11.6-14.6 [facility] Comment on above: Performed By: #### L 500.4050, L500.4100, L100.0100 #### [facility] [address] [place], [address] Hematocrit (Bld) [Volume fraction] 39.7 % Normal 37-47 [facility] Comment on above: Performed By: #### L 500.4050, L500.4100, L100.0100 #### [facility] [address] [place], [address] Hemoglobin (Bld) [Mass/Vol] 13.2 g/dL Normal 12.0-15.0 [facility] Comment on above: Performed By: #### L 500.4050, L500.4100, L100.0100 #### [facility] [address] [place], [address] IG% 0.400 Normal 0.0-0.9 [facility] Comment on above: Result Comment: IG% - Immature Granulocytes (promyelocytes, myelocytes and metamyelocytes) > 1% indicates that a LEFT SHIFT is Present. Performed By: #### L 500.4050, L500.4100, L100.0100 #### [facility] [address] [place], [address] Lymphocytes/100 WBC (Bld) 30.7 % Normal 19-41 [facility] Comment on above: Performed By: #### L 500.4050, L500.4100, L100.0100 #### [facility] [address] [place], [address] MCH (RBC) [Entitic mass] 27.9 pg Normal 27.0-32.0 [facility] Comment on above: Performed By: #### L 500.4050, L500.4100, L100.0100 #### [facility] [address] [place], [address] MCHC (RBC) [Mass/Vol] 33.2 g/dL Normal 32-36 [facility] Comment on above: Performed By: #### L 500.4050, L500.4100, L100.0100 #### [facility] [address] [place], [address] MCV (RBC) [Entitic vol] 83.9 fL Normal 81-99 [facility] Comment on above: Performed By: #### L 500.4050, L500.4100, L100.0100 #### [facility] [address] [place], [address] Monocytes/100 WBC (Bld) 7.7 % Normal 0-10 [facility] Comment on above: Performed By: #### L 500.4050, L500.4100, L100.0100 #### [facility] [address] [place], [address] Neutrophils/100 WBC (Bld) 59.2 % Normal 47-70 [facility] Comment on above: Performed By: #### L 500.4050, L500.4100, L100.0100 #### [facility] [address] [place], [address] Nucleated RBC (Bld) [#/Vol] 0 10*3/uL Normal 0-5 [facility] Comment on above: Performed By: #### L 500.4050, L500.4100, L100.0100 #### [facility] [address] [place], [address] Platelet mean volume (Bld) [Entitic vol] 10.2 fL Normal 6.2-12.0 [facility] Comment on above: Performed By: #### L 500.4050, L500.4100, L100.0100 #### [facility] [address] [place], [address] Platelets (Bld) [#/Vol] 396 10*3/uL Normal 150-450 [facility] Comment on above: Performed By: #### L 500.4050, L500.4100, L100.0100 #### [facility] [address] [place], [address] RBC (Bld) [#/Vol] 4.73 10*6/uL Normal 4.2-5.4 [facility] Comment on above: Performed By: #### L 500.4050, L500.4100, L100.0100 #### [facility] [address] [place], [address] RDW SD 39.4 fl Normal 35.1-43.9 [facility] Comment on above: Performed By: #### L 500.4050, L500.4100, L100.0100 #### [facility] [address] [place], [address] WBC (Bld) [#/Vol] 8.5 10*3/uL Normal 4.4-11.0 [facility] Comment on above: Performed By: #### L 500.4050, L500.4100, L100.0100 #### [facility] [address] [place], [address] Calculated very low density lipoprotein (VLDL) cholesterol measurementOrdered By: Neela Soni on 12-24-2024 VLDL Cholesterol 28 mg/dL 5-40 [facility] Carbon dioxide, total [Moles /volume] in Central venous bloodOrdered By: Neela Soni on 12-24-2024 CO2 [Moles/Vol] 22.2 mmol/L 21.0-32.0 [facility] Chloride assayOrdered By: Eric southlaura Hopenoéclaire on 12-24-2024 Chloride [Moles/Vol] 103 mmol/L 98-108 [facility] Comprehensive Metabolic Prof ilon 12-24-2024 Albumin [Mass/Vol] 4.3 g/dL Normal 3.5-5.0 [facility] Comment on above: Performed By: #### L 500.4050, L500.4100, L100.0100 ####[facility] [address] [place], [address] Albumin/Globulin [Mass ratio] 1.3 {ratio} Normal 0.9-2.4 [facility] Comment on above: Performed By: #### L 500.4050, L500.4100, L100.0100 ####[facility] [address] [place], [address] ALK PHOS 48 U/L Normal 35-104 [facility] Comment on above: Performed By: #### L 500.4050, L500.4100, L100.0100 ####[facility] [address] [place], [address] ALT [Catalytic activity/Vol] 28 U/L Normal <=34 [facility] Comment on above: Performed By: #### L 500.4050, L500.4100, L100.0100 ####[facility] [address] [place], [address] AST [Catalytic activity/Vol] 25 U/L Normal <=31 [facility] Comment on above: Performed By: #### L 500.4050, L500.4100, L100.0100 ####[facility] [address] [place], [address] Bilirubin [Mass/Vol] 0.23 mg/dL Normal 0.00-1.30 [facility] Comment on above: Performed By: #### L 500.4050, L500.4100, L100.0100 ####[facility] [address] [place], [address] BUN/CRE 25.7 RATIO High 10-20 [facility] Comment on above: Performed By: #### L 500.4050, L500.4100, L100.0100 ####[facility] [address] [place], [address] Calcium [Mass/Vol] 9.3 mg/dL Normal 7.6-11.0 [facility] Comment on above: Performed By: #### L 500.4050, L500.4100, L100.0100 ####[facility] [address] [place], [address] Chloride [Moles/Vol] 103 mmol/L Normal 98-108 [facility] Comment on above: Performed By: #### L 500.4050, L500.4100, L100.0100 ####[facility] [address] [place], [address] CO2 [Moles/Vol] 22.2 mmol/L Normal 21.0-32.0 [facility] Comment on above: Performed By: #### L 500.4050, L500.4100, L100.0100 ####[facility] [address] [place], [address] Creatinine [Mass/Vol] 0.73 mg/dL Normal 0.70-1.20 [facility] Comment on above: Performed By: #### L 500.4050, L500.4100, L100.0100 ####[facility] [address] [place], [address] GAP 13 Normal 5-15 [facility] Comment on above: Performed By: #### L 500.4050, L500.4100, L100.0100 ####[facility] [address] [place], [address] GFR/1.73 sq M.predicted among non-blacks MDRD (S/P/Bld) [Vol rate/Area] 107 mL/min/{1.73_m2} Normal >60 [facility] Comment on above: Result Comment: mL/m in/1.73m2 CKD-EPI Creatinine Equation (2020) Performed By: #### L 500.4050, L500.4100, L100.0100 ####[facility] [address] [place], [address] Globulin (S) [Mass/Vol] 3.3 g/dL Normal 2.2-4.2 [facility] Comment on above: Performed By: #### L 500.4050, L500.4100, L100.0100 ####[facility] [address] [place], [address] Glucose [Mass/Vol] 94 mg/dL Normal 70-99 [facility] Comment on above: Performed By: #### L 500.4050, L500.4100, L100.0100 ####[facility] [address] [place], [address] Potassium [Moles/Vol] 4.4 mmol/L Normal 3.3-5.1 [facility] Comment on above: Performed By: #### L 500.4050, L500.4100, L100.0100 ####[facility] [address] [place], [address] Sodium [Moles/Vol] 138 mmol/L Normal 133-145 [facility] Comment on above: Performed By: #### L 500.4050, L500.4100, L100.0100 ####[facility] [address] [place], [address] T PROT 7.6 g/dL Normal 5.9-8.4 [facility] Comment on above: Performed By: #### L 500.4050, L500.4100, L100.0100 ####[facility] [address] [place], [address] Urea nitrogen [Mass/Vol] 19 mg/dL Normal 4-19 [facility] Comment on above: Performed By: #### L 500.4050, L500.4100, L100.0100 ####[facility] [address] [place], [address] Eosinophil percentageOrdered By: Neela Soni on 12-24-2024 Eosinophils/100 WBC (Bld) 1.4 % 0-5 [facility] Erythrocyte distribution wid th (RBC) [Ratio]Ordered By: Clementelynndylmagalie Soni on 12-24-2024 Erythrocyte distribution width (RBC) [Entitic vol] 39.4 fL 35.1-43.9 [facility] Erythrocyte distribution wid th ratioOrdered By: [facility] Soni on 12-24-2024 Erythrocyte distribution width (RBC) [Ratio] 13.0 % 11.6-14.6 [facility] GFR/1.73 sq M.predicted mohan g non-blacks MDRD (S/P/Bld) [Vol rate/Area]Ordered By: Neela Soni on 12-24-2024 Estimated GFR (MDRD) Non-Af Amer 107 >60 [facility] Comment on above: mL/min/1.73m2 CKD-EP I Creatinine Equation (2020) Hematocrit Auto (Bld) [Volum e fraction]Ordered By: Neela Soni on 12-24-2024 Hematocrit (Bld) [Volume fraction] 39.7 % 37-47 [facility] Hemoglobin measurementOrdere d By: Neela Soni on 12-24-2024 Hemoglobin (Bld) [Mass/Vol] 13.2 g/dL 12.0-15.0 [facility] Immature granulocytes/100 WB C Auto (Bld)Ordered By: Neela Soni on 12-24-2024 Immature granulocytes/100 WBC (Bld) 0.400 % 0.0-0.9 [facility] Comment on above: IG% - Immature Granu locytes (promyelocytes, myelocytes and metamyelocytes) > 1% indicates that a LEFT SHIFT is Present. Internal Medicine Office Vis chanell 12-24-2024 Internal Medicine Office Visit [facility] [address] [place] [address] OFFICE VISIT Date of Service: 12/24/24 MR#: [id number] Acct: [id number] Name: DADA ANGULO Rep #: [id number] : 1985 Provider: Dr. 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 Accompanied by: Self Is patient in pain?: No Allergies ondansetron (From Zofran (as hydrochloride)) Allergy (Intermediate, Verified 12/24/24 08:39) Hives clindamycin Allergy (Verified 12/24/24 08:39) Hives ketorolac Allergy (Verified 12/24/24 08:39) Hives Medications ???Medication ???Instructions ???Recorded ???Confirmed ???Type cetirizine 10 mg capsule (Zyrtec) 10 mg PO DAILY PRN 12/26/2312/24 History multivitamin 1 tab PO DAILY 12/26/23 12/24/24 H istory epinephrine 0.3 mg/0.3 mL 0.3 mg (0.3 mL) IM Q5-15M PRN 08/0 11/1712/24/24 Rx injection, auto-injector (EpiPen anaphylaxis #2 ea 2-Jonh) lisinopril 5 mg tablet See Rx Instructions .Route 5 12/24/24 Rx .COMPLEX #180 tabs rosuvastatin 10 mg tablet 10 mg PO DAILY #90 tabs 12/24/24 0 12/24/24 Rx Have you fallen in the past year?: No PFSH Medical History Urinary urgency Tachycardia Screening for thyroid disorder Influenza-like symptoms Recurrent sinusitis Conjunctivitis Allergies Change in bowel habit RUQ abdominal pain History of kidney stones Ovarian cyst Hemorrhoid Seasonal allergies Chest congestion Cough Sinusitis Dermatitis Preventative health care Obesity Hyperlipidemia Low TSH level GERD (gastroesophageal reflux disease) Right sided abdominal pain Hives Elevated antinuclear antibody (JOSE) level Obesity, Class III, BMI 40-49.9 (morbid obesity) Hypertension Back ache Surgical History History of removal of skin mole Hx of tonsillectomy History of discectomy Family History Father History of blood clots Mother History of blood clots Grandmother History of blood clots Breast cancer Cancer Thyroid Grandfather Diabetes Hypertension Myocardial infarction, Onset Age: 57 paternal Social History Smoking Status: Never smoker alcohol intake: current alcohol intake frequency: holidays/special occasions only Alcohol type: wine substance use type: does not use caffeine: No 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 No significant changes since her last visit. History of hypertension, blood pressure slightly elevated however she states that she has not taken her lisinopril this morning. No chest pain, palpitation or shortness of breath. History of hyperlipidemia on rosuvastatin, no muscle pain or weakness, tolerating medication well. Also chronic history of sinusitis, follows up with ENT. Has been doing Nasacort and nasal rinses. Chronic pressure but no chills, fever or otherwise feeling of unwell. Follows up with [employer] and recently had a mammogram. Also follows up with dermatology. No tobacco or alcohol abuse. ROS Const Constitutional: No body ache, excessive sweating, fatigue, fever(s), frequent falls, headache(s), snoring, weakness, weight change, sleep problems or change in appetite Eyes Eyes: No blurry vision, change in vision, bulging eyes, floaters, visual disturbances, eye pain or Light sensitivity ENT ENT: No abnormal hearing, ear or mastoid pain, tinnitus, balance problems, nosebleed/epistaxis, nasal congestion, headache(s), lip swelling, mouth lesions, neck pain or sore throat Resp Respiratory: No cough, excessive phlegm production, pain on inspiration, shortness of breath, snoring or wheezing Cardio Cardiology: No chest pain at rest, chest pain with exertion, excessive sweating, shortness of breath, dyspnea on exertion, lightheadedness, orthopnea or palpitations Gastro GI: No abdominal pain, change in bowel habits, constipation, cramping, diarrhea, nausea/dyspepsia or vomi (more content not included)... Normal [facility] LDL calc ser/plasOrdered By: Neela Soni on 12-24-2024 LDL Cholesterol, Calculated 100 mg/dL [facility] Comment on above: Oshiojyscl=543-602 m g/dL & Higher Tvrq=249 mg/dL or greater Laboratory - Chemistry and C hemistry - challengeOrdered By: Neela Soni on 12-24-2024 AST [Catalytic activity/Vol] 25 U/L <32 [facility] Lipid Profileon 12-24-2024 CHOL:HDL 3.48 Normal [facility] Comment on above: Performed By: #### L 500.4050, L500.4100, L100.0100 #### [facility] [address] [place], [place], [address] Cholesterol [Mass/Vol] 179 mg/dL Normal <=[address] [facility] Comment on above: Result Comment: Chol esterol level, Desirable <200 mg/dL Borderline high cholesterol 200-239 mg/dL High cholesterol >=240 mg/dL Recommendations of the NCEP Adult Treatment Panel for the following risk-cutoff thresholds for the [place] population. Performed By: #### L 500.4050, L500.4100, L100.0100 #### [facility] [address] [place], [address] Cholesterol in HDL [Mass/Vol] 52 mg/dL Normal [facility] Comment on above: Result Comment: Jocelyne onal Cholesterol Education Program (NCEP) guidelines: <40 mg/dL: Low HDL-cholesterol (major risk factor for CHD) >= 60 mg/dL: High HDL-cholesterol (negative risk factor for CHD) HDL-cholesterol is affected by a number of factors, e.g. smoking, exercise, hormones, sex and age. Performed By: #### L 500.4050, L500.4100, L100.0100 #### [facility] [address] [place], [address] Cholesterol in LDL [Mass/Vol] 100 mg/dL Normal [facility] Comment on above: Result Comment: Bord avcbyb=791-441 mg/dL Higher Octa=895 mg/dL or greater Performed By: #### L 500.4050, L500.4100, L100.0100 #### [facility] [address] [place], [address] Cholesterol in VLDL [Mass/Vol] 28 mg/dL Normal 5-40 [facility] Comment on above: Performed By: #### L 500.4050, L500.4100, L100.0100 #### [facility] [address] [place], [address] Triglyceride [Mass/Vol] 140 mg/dL Normal [facility] Comment on above: Result Comment: The drugs N-Acetylcysteine and Metamizole may falsely depress this assay. Normal range: <150 mg/dL Borderline High: 150-199 mg/dL High: 200-499 mg/dL Very High: >500 mg/dL Performed By: #### L 500.4050, L500.4100, L100.0100 #### [facility] [address] [place], [address] Lymphocytes Auto (Unsp spec) [#/Vol]Ordered By: Neela Soni on 12-24-2024 Lymphocytes (Bld) [#/Vol] 2.60 10*3/uL 0.83-4.51 [facility] Lymphocytes/100 WBC Auto (Un sp spec)Ordered By: Ericakosuagenevievemagalie Hopenoéclaire on 12-24-2024 Lymphocytes/100 WBC (Bld) 30.7 % 19-41 [facility] MCV (mean corpuscular volume ) determinationOrdered By: Neela Soni on 12-24-2024 MCV (RBC) [Entitic vol] 83.9 fL 81-99 [facility] Mean corpuscular hemoglobin (MCH) determinationOrdered By: Neela Soni on 12-24-2024 MCH (RBC) [Entitic mass] 27.9 pg 27.0-32.0 [facility] Mean corpuscular hemoglobin concentration (MCHC) determinationOrdered By: Neela Soni on 12-24-2024 MCHC (RBC) [Mass/Vol] 33.2 g/dL 32-36 [facility] Mean platelet volume determi nationOrdered By: Neela Soni on 12-24-2024 Platelet mean volume (Bld) [Entitic vol] 10.2 fL 6.2-12.0 [facility] Monocyte percentageOrdered B y: Neela Soni on 12-24-2024 Monocytes/100 WBC (Bld) 7.7 % 0-10 [facility] Neutrophil percentageOrdered By: Neela Soni on 12-24-2024 Neutrophils/100 WBC (Bld) 59.2 % 47-70 [facility] Nucleated red blood cell per centageOrdered By: Neela Soni on 12-24-2024 Nucleated RBC/100 WBC (Bld) [Ratio] 0 % 0-5 [facility] Platelet countOrdered By: Eric markomagalie Soni on 12-24-2024 Platelets (Bld) [#/Vol] 396 10*3/uL 150-450 [facility] Potassium (Unsp spec) [Mass/ Vol]Ordered By: Neela Soni on 12-24-2024 Potassium [Moles/Vol] 4.4 mmol/L 3.3-5.1 [facility] RBC Auto (Bld) [#/Vol]Ordere d By: Neela Soni on 12-24-2024 RBC (Bld) [#/Vol] 4.73 10*6/uL 4.2-5.4 [facility] Screening total cholesterol/ high density lipoprotein (HDL) cholesterol ratioOrdered By: Neela Soni on 12-24-2024 Cholesterol.total/Choles terol in HDL [Mass ratio] 3.48 {ratio} [facility] Serum creatinine measurement (mass/volume)Ordered By: Neela Soni on 12-24-2024 Creatinine [Mass/Vol] 0.73 mg/dL 0.70-1.20 [facility] Serum globulin measurementOr dered By: Neela Soni on 12-24-2024 Globulin (S) [Mass/Vol] 3.3 g/dL 2.2-4.2 [facility] Serum glucose measurement (m ass/volume)Ordered By: Neela Soni on 12-24-2024 Glucose [Mass/Vol] 94 mg/dL 70-99 [facility] Serum or plasma alanine browne otransferase (ALT) measurementOrdered By: Neela Soni on 12-24-2024 ALT [Catalytic activity/Vol] 28 U/L <35 [facility] Serum or plasma albumin amilcar urement (mass/volume)Ordered By: Neela Soni on 12-24-2024 Albumin [Mass/Vol] 4.3 g/dL 3.5-5.0 [facility] Serum or plasma albumin/glob ulin mass ratioOrdered By: Neela Soni on 12-24-2024 Albumin/Globulin [Mass ratio] 1.3 {ratio} 0.9-2.4 [facility] Serum or plasma alkaline jada sphatase measurementOrdered By: Neela Soni on 12-24-2024 ALP [Catalytic activity/Vol] 48 U/L 35-104 [facility] Serum or plasma calcium amilcar urement (mass/volume)Ordered By: Neela Soni on 12-24-2024 Calcium [Mass/Vol] 9.3 mg/dL 7.6-11.0 [facility] Serum or plasma cholesterol in HDL measurement (mass/volume)Ordered By: Neela Soni on 12-24-2024 Cholesterol in HDL [Mass/Vol] 52 mg/dL >40 [facility] Comment on above: National Cholesterol Education Program (NCEP) guidelines:<40 mg/dL: Low HDL-cholesterol (major risk factor for CHD)>= 60 mg/dL: High HDL-cholesterol (negative risk factor for CHD)HDL-cholesterol is affected by a number of factors, e.g. smoking, exercise, hormones, sex and age. Serum or plasma cholesterol measurement (mass/volume)Ordered By: Neela Soni on 12-24-2024 Cholesterol [Mass/Vol] 179 mg/dL <[address] [facility] Comment on above: Cholesterol level, D esirable <200 mg/dLBorderline high cholesterol 200-239 mg/dLHigh cholesterol >=240 mg/dLRecommendations of the NCEP Adult Treatment Panel for the following risk-cutoff thresholds for the [place] population. Serum or plasma urea nitroge n measurement (mass/volume)Ordered By: Neela Soni on 12-24-2024 Urea nitrogen [Mass/Vol] 19 mg/dL 4-19 [facility] Sodium levelOrdered By: Clemente Soni on 12-24-2024 Sodium [Moles/Vol] 138 mmol/L 133-145 [facility] Total proteinOrdered By: Crispin Soni on 12-24-2024 Protein [Mass/Vol] 7.6 g/dL 5.9-8.4 [facility] Triglycerides measurementOrd ered By: Neela Soni on 12-24-2024 Triglyceride [Mass/Vol] 140 mg/dL <199 [facility] Comment on above: The drugs N-Acetylcy steine and Metamizole may falsely depress this assay. Normal range: <150 mg/dLBorderline High: 150-199 mg/dLHigh: 200-499 mg/dLVery High: >500 mg/dL White blood cell (WBC) count Ordered By: Neela Soni on 12-24-2024 WBC (Bld) [#/Vol] 8.5 10*3/uL 4.4-11.0 [facility] SCRN MAMM (CAD)W/CATHY BILATo n 10-13-2024 SCRN MAMM (CAD)W/CATHY BILAT [facility] Imaging Services [address] [place] [address] SCRN MAMM (CAD)W/CATHY BILAT MR#: [id number] Acct: [id number] Name: DADA ANGULO Rep #: [id number] : 1985 F 39 From: Shay ty MD PCP: Dr. Neela Soni MD Status: REG [facility] Study: SCRN MAMM (CAD)W/CATHY BILAT Date of Exam: 09/25 Exam# [id number] Ordering Dr: Randa Rajput DO [id number] MAMMOGRAPHY - BILATERAL SCREENING REASON FOR EXAM: Female, 39 years old. Routine annual screening examination. PERTINENT HISTORY: Grandmother with breast cancer. Aunt with breast cancer. TECHNIQUE: Digital bilateral breast cathy (3D mammographic acquisition) in the CC and MLO projections. 2-D mediolateral oblique (MLO) and craniocaudad (CC) views of both breasts were obtained. CAD: Full Field Digital Mammography with Computer Added Detection was performed. COMPARISON: Comparison is made with prior study dated April 08, 2024 and July 05, 2022. FINDINGS: Breast Composition: The breasts are heterogeneously dense, which may obscure small masses. There are no dominant masses or suspicious calcifications. Stable small fat-containing bilateral axillary lymph nodes. No other significant abnormalities are identified. There has been no significant change since the prior study. BI/SCRN MAMM (CAD)W/CATHY BILAT IMPRESSION: Stable bilateral screening mammogram. Yearly follow-up mammogram recommended. (A) ASSESSMENT CATEGORY: BIRADS Category 2: Benign. A letter regarding these results will be sent to the patient by the facility within 30 days. Approximately 10% of breast cancers are not detected by mammography. A normal mammogram should not delay biopsy of a clinically suspicious abnormality. [id number] Electronically Signed: Shay Short MD at 9:47 EST Reading Location ID and State: [address] [place] [address] , Service support , CC: Dr. Neela Soni MD; Dr. Randa Rajput DO Reel Hooker: Signed Normal [facility] Abdomen/Pelvis without Conto n 10-10-2024 Abdomen/Pelvis without Cont [facility] Imaging Services [address] [place], [place] [address] Abdomen/Pelvis without Cont MR#: [id number] Acct: [id number] Name: DADA ANGULO Rep #: [id number] : 1985 F 39 From: Rodrigo pompa MD PCP: Dr. Neela Soni MD Status: REG CLI Study: Abdomen/Pelvis without Cont Date of Exam: 09/24 04/17 Exam# [id number] Ordering Dr: Neela Soni MD [id number] INDICATION: Abdomen pain, urinary frequency EXAMINATION: CT Abdomen And Pelvis W/O Contrast Injection TECHNIQUE: Helically acquired images were obtained of the abdomen and pelvis without the use of IV contrast. A radiation dose optimization technique was used for this scan. Oral contrast: None. COMPARISON: None FINDINGS: Evaluation of the solid organs and vascular structures is limited without intravenous contrast. Visualized lung bases: Unremarkable Liver: Diffusely hypodense consistent with fatty liver. Gallbladder: Unremarkable Spleen: Unremarkable Pancreas: Unremarkable Adrenal Glands: Unremarkable Kidneys: 9 mm nonobstructing stone in the right lower renal pole. Vasculature: Mild scattered aortoiliac atherosclerotic calcifications. GI Tract: The appendix is normal. Lymphadenopathy: None Peritoneum: No ascites. Bladder: Unremarkable Reproductive organs: Unremarkable Bones/Soft tissues: No suspicious osseous or soft tissue lesions CT/Abdomen/Pelvis without Cont IMPRESSION: No acute abnormalities in the abdomen or pelvis. Nonobstructive nephrolithiasis on the right. Electronically Signed: Rodrigo Sy MD at 9:51 EST , CC: Dr. Neela Soni MD Reel Hooker: Signed Normal [facility] Bilirubin Test strip Ql (U)O rdered By: Neela Soni on 09-22-2024 Bilirubin Ql (U) Negative Negative [facility] Epithelial cells.squamous LM Ql (Urine sed)Ordered By: Neela Soni on 09-22-2024 Epithelial cells.squamous LM.HPF (Urine sed) [#/Area] 0 /[HPF] 5-10 [facility] Glucose Ql (U)Ordered By: Eric Soni on 09-22-2024 Urine Glucose (UA) Normal mg/dl Normal [facility] Internal Medicine Office Vis iton 09-22-2024 Internal Medicine Office Visit [facility] [address] [place] [address] [place] [address] OFFICE VISIT Date of Service: 09/22/24 MR#: [id number] Acct: [id number] Name: DADA ANGULO Rep #: [id number] : 1985 Provider: Dr. 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 Accompanied by: Self Is patient in pain?: No Allergies ondansetron (From Zofran (as hydrochloride)) Allergy (Intermediate, Verified 09/22/24 13:03) Hives clindamycin Allergy (Verified 09/22/24 13:03) Hives ketorolac Allergy (Verified 09/22/24 13:03) Hives Medications ???Medication ???Instructions ???Recorded ???Confirmed ???Type cetirizine 10 mg capsule (Zyrtec) 10 mg PO DAILY PRN 12/26/23 09/22/24 History multivitamin 1 tab PO DAILY 12/26/23 09/22/24 History omega-3 fatty acids 1,250 mg 1,250 mg PO DAILY 12/26/23 09/22/24 History capsule rosuvastatin 10 mg tablet 10 mg PO DAILY #90 tabs 01/31/24 09/22/24 Rx epinephrine 0.3 mg/0.3 mL 0.3 mg (0.3 mL) IM Q5-15M PRN 04/25/24 09/22/24 Rx injection, auto-injector (EpiPen anaphylaxis #2 ea 2-Jonh) lisinopril 5 mg tablet See Rx Instructions .Route 04/25/24 09/22/24 Rx .COMPLEX #180 tabs [facility] Medical History (Updated 09/22/24 @ 13:[address] Neela Soni MD) Urinary urgency Tachycardia Screening for thyroid disorder Influenza-like symptoms Recurrent sinusitis Conjunctivitis Allergies Change in bowel habit RUQ abdominal pain History of kidney stones Ovarian cyst Hemorrhoid Seasonal allergies Chest congestion Cough Sinusitis Dermatitis Preventative health care Obesity Hyperlipidemia Low TSH level GERD (gastroesophageal reflux disease) Right sided abdominal pain Hives Elevated antinuclear antibody (JOSE) level Obesity, Class III, BMI 40-49.9 (morbid obesity) Hypertension Back ache Surgical History History of removal of skin mole Hx of tonsillectomy History of discectomy Family History Father History of blood clots Mother History of blood clots Grandmother History of blood clots Breast cancer Cancer Thyroid Grandfather Diabetes Hypertension Myocardial infarction, Onset Age: 57 paternal Social History Smoking Status: Never smoker alcohol intake: current alcohol intake frequency: holidays/special occasions only Alcohol type: wine substance use type: does not use caffeine: No 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 She reports ongoing abdominal pain. At her last visit, had reported right sided pain however lately, pain on both flank. Also occasional mid abdominal discomfort. Recent questionable urinary concerns and she states that her bowel movements have not been the same. Stool. No nausea, vomiting or unintentional weight changes. History of gallbladder disorder status post HIDA scan surgery was recommended but at that time, she was not open to this. ROS Const Constitutional: No body ache, chills, excessive sweating, fatigue, fever(s), frequent falls, headache(s), snoring, weakness or change in appetite Eyes Eyes: No blurry vision, change in vision, floaters, visual disturbances, eye pain or Light sensitivity ENT ENT: No abnormal hearing, ear or mastoid pain, tinnitus, balance problems, nosebleed/epistaxis, nasal congestion, headache(s), neck pain or sore throat Resp Respiratory: No cough, excessive phlegm production, pain on inspiration, shortness of breath, snoring or wheezing Cardio Cardiology: No chest pain at rest, chest pain with exertion, excessive sweating, dyspnea on exertion, lightheadedness, orthopnea or palpitations Gastro GI: Positive for abdominal pain; No change in bowel habits, constipation, cramping, diarrhea, nausea/dyspepsia or vomiting Genitourinary-Female : Positive for suprapubic fullness, side pain and other (cloudy urine ); No burning urination, painful urination, urinary incontinence or (more content not included)... Normal [facility] Ketones Test strip Ql (U)Ord ered By: Neela Soni on 09-22-2024 Ketones Ql (U) Negative Negative [facility] Microscopic analysis of urin e for red blood cells (RBC)Ordered By: Neela Soni on 09-22-2024 Urine RBC 0 SEEN /hpf 0-5 [facility] Mucus LM Ql (Urine sed)Order ed By: Neela Soni on 09-22-2024 Mucus Ql (Urine sed) 0 SEEN /hpf [facility] Nitrite Test strip Ql (U)Ord ered By: Neela Soni on 09-22-2024 Nitrite Ql (U) Negative Negative [facility] Protein Test strip Ql (U)Ord ered By: Neela Hopenoéclaire on 09-22-2024 Protein Ql (U) Negative Negative [facility] Urinalysis, Completeon 09-22 WBC 5-10 SEEN Normal 0-5 [facility] Comment on above: Order Comment: CLEAN CATCH Performed By: #### L 400.0001 #### [facility] [address] [place], [address] BACTERIA 0 SEEN Normal None Seen [facility] Comment on above: Order Comment: CLEAN CATCH Performed By: #### L 400.0001 #### [facility] [address] [place], [address] EPI,SQUAMOUS 0 SEEN Normal 5-10 [facility] Comment on above: Order Comment: CLEAN CATCH Performed By: #### L 400.0001 #### [facility] [address] [place], [address] Mucus Ql (Urine sed) 0 SEEN Normal [facility] Comment on above: Order Comment: CLEAN CATCH Performed By: #### L 400.0001 #### [facility] [address] [place], [address] RBC 0 SEEN Normal 0-5 [facility] Comment on above: Order Comment: CLEAN CATCH Performed By: #### L 400.0001 #### [facility] [address] [place], [address] Urine blood detectionOrdered By: Neela Soni on 09-22-2024 Urine Occult Blood 10 /ul High Negative [facility] Urine clarityOrdered By: Crispin Soni on 09-22-2024 Clarity (U) Clear Clear [facility] Urine color determinationOrd ered By: Neela Soni on 09-22-2024 Color (U) Straw Yellow [facility] Urine leukocyte esterase det ection by dipstickOrdered By: Neela Soni on 09-22-2024 Leukocyte esterase Test strip Ql (U) 25 /ul High Negative [facility] Urine pHOrdered By: Lisa Soni on 09-22-2024 pH (U) 6.5 [pH] 5.0 - 8.0 [facility] Urine sediment bacteria coun t by microscopy (number/high power field)Ordered By: Neela Soni on 09-22-2024 Bacteria LM.HPF (Urine sed) [#/Area] 0 /[HPF] None Seen [facility] Urine specific gravity measu rementOrdered By: Neela Soni on 09-22-2024 Specific gravity (U) [Rel density] 1.010 1.002-1.030 [facility] Urobilinogen Ql (U)Ordered B y: Neela Soni on 09-22-2024 Urine Urobilinogen Normal mg/dl Normal [facility] White blood cell countOrdere d By: Neela Soni on 09-22-2024 Urine WBC 5-10 SEEN /hpf 0-5 [facility] Visit Reporton 1 11-02-2023 Urgent Care Visit Report [facility] [address], [address] [place], [place] [id number] OFFICE VISIT Date of Service: 09/01/24 MR#: [id number] Acct: [id number] Name: DADA ANGULO Rep #: [id number] : 1985 Provider: ЮЛИЯ Carranza Age/Sex: 39/F Location: [facility] [place] Status: Signed Intake Vital Signs 08/25/24 08:31 09/01/24 12:22 Height 5 ft 5 in Weight: 262 lb BMI 43.6 BP 120/74 118/70 Blood Pressure Location Lt brachial Lt brachial Position Sitting Sitting Respiration 16 12 Pulse 74 79 Pulse Source Monitor NIBP Temp 97.6 F L 98.7 F Temp Source Temporal Oral Pulse Oximetry (%) 99 98 Oxygen Delivery Method room air room air Intake Visit Reasons: SINUS PRESSURE/CONGESTION/ COUGH/BILAT EAR COMP/ST Chief Complaint: sinus pressure, congestion, cough bilat ear pain, st 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 Is patient in pain?: No Allergies ondansetron (From Zofran (as hydrochloride)) Allergy (Intermediate, Verified 09/01/24 12:23) Hives clindamycin Allergy (Verified 09/01/24 12:23) Hives ketorolac Allergy (Verified 09/01/24 12:23) Hives Medications ???Medication ???Instructions ???Recorded ???Confirmed ???Type cetirizine 10 mg capsule (Zyrtec) 10 mg PO DAILY PRN 12/26/23 09/01/24 History multivitamin 1 tab PO DAILY 12/26/23 09/01/24 History omega-3 fatty acids 1,250 mg 1,250 mg PO DAILY 12/26/23 09/01/24 History capsule rosuvastatin 10 mg tablet 10 mg PO DAILY #90 tabs 01/31/24 09/01/24 Rx epinephrine 0.3 mg/0.3 mL 0.3 mg (0.3 mL) IM Q5-15M PRN 04/25/24 09/01/24 Rx injection, auto-injector (EpiPen anaphylaxis #2 ea 2-Jonh) lisinopril 5 mg tablet See Rx Instructions .Route 04/25/24 09/01/24 Rx .COMPLEX #180 tabs azithromycin 250 mg tablet 250 mg PO .COMPLEX #12 tabs 09/01/24 09/01/24 Rx Is last menstrual period known: No Post menopausal: No Patient : No Have you fallen in the past year?: No Nurse's Note: patient here for sinus pressure, bilat ear pain, ST since , patient stated is causing her tooth pain. [facility] Medical History (Updated 08/25/24 @ 10:[address] Neela Soni MD) Tachycardia Screening for thyroid disorder Influenza-like symptoms Recurrent sinusitis Conjunctivitis Allergies Change in bowel habit RUQ abdominal pain History of kidney stones Ovarian cyst Hemorrhoid Seasonal allergies Chest congestion Cough Sinusitis Dermatitis Preventative health care Obesity Hyperlipidemia Low TSH level GERD (gastroesophageal reflux disease) Right sided abdominal pain Hives Elevated antinuclear antibody (JOSE) level Obesity, Class III, BMI 40-49.9 (morbid obesity) Hypertension Back ache Surgical History History of removal of skin mole Hx of tonsillectomy History of discectomy Family History Father History of blood clots Mother History of blood clots Grandmother History of blood clots Breast cancer Cancer Thyroid Grandfather Diabetes Hypertension Myocardial infarction, Onset Age: 57 paternal Social History Smoking Status: Never smoker alcohol intake: current alcohol intake frequency: holidays/special occasions only Alcohol type: wine substance use type: does not use caffeine: No 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 No complaints of fever, chills, myalgias, fatigue, runny nose, or nausea/vomiting/diar kaylin. No complaints of chest pain/shortness of breath/dyspnea on exertion. No close contacts with similar complaints. Declining all POC screening upon offering. No other associated symptoms and no other alleviating/aggravat ing factors. ROS Const Constitutional: No other (as above) Exam Const General: cooperative, healthy appearing and no acute distress Nutritional Appearance: average body habitus Orientation: alert, awake and oriented x3 HENMT Head: normal to inspection Ears: hearing grossly normal bilaterally, external ears normal, TM's normal bilaterally and EAC's normal Nose: external nose normal, nares normal, septum normal and no nasal discharge Face and sinus: normal facial exam, sinuses nontender (Though bilateral maxillary fullness to palpation) and face symmetric Mouth: oral mucosae normal, lip normal, tongue normal and oropharynx normal Throat: posterior oropharynx normal, tonsils normal (more content not included)... Normal [facility] Internal Medicine Office Vis chanell 08-25-2024 Internal Medicine Office Visit [facility] [address] [place] [address] [place] [address] OFFICE VISIT Date of Service: 08/25/24 MR#: [id number] Acct: [id number] Name: DADA ANGULO Rep #: [id number] : 1985 Provider: Dr. 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 Accompanied by: Self Is patient in pain?: No Allergies ondansetron (From Zofran (as hydrochloride)) Allergy (Intermediate, Verified 08/25/24 08:28) Hives clindamycin Allergy (Verified 08/25/24 08:28) Hives ketorolac Allergy (Verified 08/25/24 08:28) Hives Medications ???Medication ???Instructions ???Recorded ???Confirmed ???Type cetirizine 10 mg capsule (Zyrtec) 10 mg PO DAILY PRN 12/26/23 08/25/24 History magnesium 200 mg tablet 200 mg PO DAILY 12/26/23 08/25/24 History multivitamin 1 tab PO DAILY 12/26/23 08/25/24 History omega-3 fatty acids 1,250 mg 1,250 mg PO DAILY 12/26/23 08/25/24 History capsule rosuvastatin 10 mg tablet 10 mg PO DAILY #90 tabs 01/31/24 08/25/24 Rx epinephrine 0.3 mg/0.3 mL 0.3 mg (0.3 mL) IM Q5-15M PRN 04/25/24 08/25/24 Rx injection, auto-injector (EpiPen anaphylaxis #2 ea 2-Jonh) lisinopril 5 mg tablet See Rx Instructions .Route 04/25/24 08/25/24 Rx .COMPLEX #180 tabs PFSH Medical History (Updated 08/25/24 @ 10:[address] Neela Soni MD) Tachycardia Screening for thyroid disorder Influenza-like symptoms Recurrent sinusitis Conjunctivitis Allergies Change in bowel habit RUQ abdominal pain History of kidney stones Ovarian cyst Hemorrhoid Seasonal allergies Chest congestion Cough Sinusitis Dermatitis Preventative health care Obesity Hyperlipidemia Low TSH level GERD (gastroesophageal reflux disease) Right sided abdominal pain Hives Elevated antinuclear antibody (JOSE) level Obesity, Class III, BMI 40-49.9 (morbid obesity) Hypertension Back ache Surgical History History of removal of skin mole Hx of tonsillectomy History of discectomy Family History Father History of blood clots Mother History of blood clots Grandmother History of blood clots Breast cancer Cancer Thyroid Grandfather Diabetes Hypertension Myocardial infarction, Onset Age: 57 paternal Social History Smoking Status: Never smoker alcohol intake: current alcohol intake frequency: holidays/special occasions only Alcohol type: wine substance use type: does not use caffeine: No what type of physical activity do you participate in: 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 Also has some concerns. She reports a few days episode of right-sided pain. Intermittent, sharp pain which eventually eases out Not associated with nausea, vomiting or change in bowel habit. Pain has completely resolved at this time. Also reports occasional episodes of elevated heart rate. Typically alerted by her smart watch. Not symptomatic. She states that at rest, heart rate is typically in the 70s but occasionally, she has noted readings as high as 113. Again, no chest tightness, syncopal or near syncopal episode. Again, these episodes are few and far between and typically, are alerted by his smart watch. Other chronic medical conditions are stable. Blood pressure today at 120/74 mmHg. ROS Const Constitutional: No body ache, chills, excessive sweating, fatigue, fever(s), frequent falls, headache(s), snoring, weakness or change in appetite Eyes Eyes: No blurry vision, change in vision, dry eyes, floaters, visual disturbances, eye pain or Light sensitivity ENT ENT: No abnormal hearing, ear or mastoid pain, tinnitus, balance problems, nosebleed/epistaxis, nasal congestion, headache(s), neck pain or sore throat Resp Respiratory: No cough, excessive phlegm production, pain on inspiration, shortness of breath, snoring or wheezing Cardio Cardiology: No chest pain at rest, chest pain with exertion, excessive sweating, dyspnea on exertion, lightheadedness, orthopnea or palpitations Gastro GI: No abdominal (more content not included)... Normal [facility] Estradiolon 06-17-2024 ESTRADIOL 297.2 pg/mL Normal [facility] Comment on above: Result Comment: NORM AL REFERENCE RANGES FEMALE FOLLICULAR 21.4 - 164.8 pg/mL MID-CYCLE PEAK 49.9 - 367.2 pg/mL LUTEAL 40.2 - 259.0 pg/mL POST-MENOPAUSAL ON MHT <11.0 - 462.1 pg/mL NOT ON MHT <11.0 - 58.3 pg/mL MALE <11.0 - 52.5 pg/mL NOTE: [facility] HAS CONFIRMED THE DRUG FULVETRANT (FASLODEX) MAY CAUSE FALSELY ELEVATED ESTRADIOL RESULTS WHEN USING THIS TEST METHOD. IF PATIENT IS TAKING FULVESTRANT AN ALTERNATIVE METHOD SHOULD BE USED TO DETERMINE ESTRADIOL CONCENTRATION. Performed By: #### L 3300.1750 ####[facility] [id number] [place], [address] Basophil percentageOrdered B y: Neela Soni on 12-24-2023 Bilirubin [Mass/Vol] 0.20 mg/dL 0.20-1.[address] [facility] Comment on above: For patients on eltr ombopag therapy, use of Dimension [place] TBIL is not recommended. Chloride [Moles/Vol] 105 mmol/L 98-107 [facility] Cholesterol [Mass/Vol] 179 mg/dL <[address] [facility] Comment on above: <200 mg/dL Desirable 200-240 mg/dL Borderline >240 mg/dL High Risk Glucose [Mass/Vol] 101 mg/dL 74-106 [facility] Comment on above: Fasting Glucose resu lt from 100 to 125 mg/dL suggests IMPAIRED HOMEOSTASIS per A.D.A. criteria. Potassium [Moles/Vol] 4.1 mmol/L 3.5-5.1 [facility] Protein [Mass/Vol] 7.1 g/dL 6.4-8.2 [facility] Sodium [Moles/Vol] 138 mmol/L 136-145 [facility] Triglyceride [Mass/Vol] 137 mg/dL <199 [facility] Comment on above: The drugs N-Acetylcy steine and Metamizole may falsely depress this assay.Serum Triglycerides Reference Interval Normal <150 mg/dL Borderline high 150 - 199 mg/dL High 200 - 499 mg/dL Very High > or = 500 mg/dL Laboratory - Chemistry and C hemistry - challengeOrdered By: Neela Soni on 12-24-2023 Albumin/Globulin [Mass ratio] 0.9 {ratio} 0.9-2.4 [facility] ALP [Catalytic activity/Vol] 40 U/L 45-117 [facility] ALT [Catalytic activity/Vol] 28 U/L 13-56 [facility] Cholesterol in HDL [Mass/Vol] 54 mg/dL >40 [facility] Comment on above: The drugs N-Acetylcy steine and Metamizole may falsely depress this assay. Reference Range HDL <40 mg/dL Low HDL Cholesterol HDL >or= 60 mg/dL High HDL Cholesterol Cholesterol in LDL [Mass/Vol] 98 mg/dL 0-130 [facility] CO2 [Moles/Vol] 27.0 mmol/L 21.0-32.0 [facility] Globulin (S) [Mass/Vol] 3.8 g/dL 2.2-4.2 [facility] Urea nitrogen/Creatinine [Mass ratio] 27.5 mg/mg 10-20 [facility] No Panel InformationOrdered By: Neela Soni on 12-24-2023 Estimated GFR (MDRD) Amer 114 mL/min >60 [facility] Comment on above: GFR Calc Estimated GFR (MDRD) Non-Af Amer 94 mL/min >60 [facility] Comment on above: Non- GFR Calc VLDL Cholesterol 27 mg/dL 5-40 [facility] Serum or plasma calcium amilcar urement (mass/volume)Ordered By: Neela Soni on 12-24-2023 Calcium [Mass/Vol] 8.9 mg/dL 8.5-10.1 [facility] Serum or plasma creatinine m easurement (mass/volume)Ordered By: Neela Soni on 12-24-2023 Creatinine [Mass/Vol] 0.73 mg/dL 0.55-1.02 [facility] Comment on above: The validity of the calculated GFR & GFRAA in patients over 70 years has not been determined. Clinical correlation is essential. Serum or plasma urea nitroge n measurement (mass/volume)Ordered By: Neela Soni on 12-24-2023 Urea nitrogen [Mass/Vol] 20 mg/dL 7-18 [facility] Thin prep Papanicolaou smear with manual screeningOrdered By: Neela Soni on 12-24-2023 Thin prep Papanicolaou smear with manual screening 3.3 g/dL 3.2-5.0 [facility] Thin prep Papanicolaou smear with manual screening 19 U/L 15-37 [facility] Thin prep Papanicolaou smear with manual screening 6 5-15 [facility] No Panel Informationon 10-18 Influenza Types A,B Rapid (Clinic) Pos FLU B&Neg FLU A [facility] Basophil percentageOrdered B y: Neela Soni on 09-28-2023 Chloride [Moles/Vol] 104 mmol/L 98-107 [facility] Cholesterol [Mass/Vol] 280 mg/dL <[address] [facility] Comment on above: <200 mg/dL Desirable 200-240 mg/dL Borderline >240 mg/dL High Risk Glucose [Mass/Vol] 95 mg/dL 74-106 [facility] Potassium [Moles/Vol] 4.4 mmol/L 3.5-5.1 [facility] Sodium [Moles/Vol] 138 mmol/L 136-145 [facility] Triglyceride [Mass/Vol] 146 mg/dL <199 [facility] Comment on above: The drugs N-Acetylcy steine and Metamizole may falsely depress this assay.Serum Triglycerides Reference Interval Normal <150 mg/dL Borderline high 150 - 199 mg/dL High 200 - 499 mg/dL Very High > or = 500 mg/dL Laboratory - Chemistry and C hemistry - challengeOrdered By: Neela Soni on 09-28-2023 CO2 [Moles/Vol] 30.0 mmol/L 21.0-32.0 [facility] Urea nitrogen/Creatinine [Mass ratio] 22.4 mg/mg 10-20 [facility] No Panel InformationOrdered By: Neela Soni on 09-28-2023 Estimated GFR (MDRD) Amer 102 mL/min >60 [facility] Comment on above: GFR Calc Estimated GFR (MDRD) Non-Af Amer 84 mL/min >60 [facility] Comment on above: Non- GFR Calc Serum or plasma calcium amilcar urement (mass/volume)Ordered By: Neela Soni on 09-28-2023 Calcium [Mass/Vol] 9.3 mg/dL 8.5-10.1 [facility] Serum or plasma cholesterol in HDL measurement (mass/volume)Ordered By: Neela Soni on 09-28-2023 Cholesterol in HDL [Mass/Vol] 53 mg/dL >40 [facility] Comment on above: The drugs N-Acetylcy steine and Metamizole may falsely depress this assay. Reference Range HDL <40 mg/dL Low HDL Cholesterol HDL >or= 60 mg/dL High HDL Cholesterol Serum or plasma cholesterol in VLDL measurement (mass/volume)Ordered By: Neela Soni on 09-28-2023 Cholesterol in VLDL [Mass/Vol] 29 mg/dL 5-40 [facility] Serum or plasma creatinine m easurement (mass/volume)Ordered By: Neela Soni on 09-28-2023 Creatinine [Mass/Vol] 0.80 mg/dL 0.55-1.02 [facility] Comment on above: The validity of the calculated GFR & GFRAA in patients over 70 years has not been determined. Clinical correlation is essential. Serum or plasma low density lipoprotein (LDL) cholesterol measurement (mass/volume)Ordered By: darlene Soni on 09-28-2023 Cholesterol in LDL [Mass/Vol] 198 mg/dL 0-130 [facility] Serum or plasma urea nitroge n measurement (mass/volume)Ordered By: Neela Soni on 09-28-2023 Urea nitrogen [Mass/Vol] 18 mg/dL 7-18 [facility] Thin prep Papanicolaou smear with manual screeningOrdered By: akosualynndylmagalie Soni on 09-28-2023 Thin prep Papanicolaou smear with manual screening 4 5-15 [facility] Absolute lymphocyte countOrd ered By: Anisha Carver on 05-03-2023 Lymphocytes Auto (Unsp spec) [#/Vol] 2.77 10*3/uL 0.83-4.51 [facility] Basophil percentageOrdered B y: Anisha Carver on 05-03-2023 Basophil percentage 0 SEEN /hpf 0-5 [facility] Basophils/100 WBC (Bld) 0.6 % 0-1 [facility] Bilirubin [Mass/Vol] 0.20 mg/dL 0.20-1.00 [facility] Comment on above: For patients on eltr ombopag therapy, use of Dimension [place] TBIL is not recommended. Chloride [Moles/Vol] 104 mmol/L 98-107 [facility] Eosinophils/100 WBC (Bld) 1.5 % 0-5 [facility] Glucose [Mass/Vol] 88 mg/dL 74-106 [facility] Neutrophils (Bld) [#/Vol] 6.0 10*3/uL 2.0-7.7 [facility] Neutrophils/100 WBC (Bld) 60.8 % 47-70 [facility] Potassium [Moles/Vol] 3.9 mmol/L 3.5-5.1 [facility] Protein [Mass/Vol] 7.8 g/dL 6.4-8.2 [facility] Sodium [Moles/Vol] 137 mmol/L 136-145 [facility] WBC (Bld) [#/Vol] 9.9 10*3/uL 4.4-11.0 [facility] Bilirubin Test strip Ql (U)O rdered By: Anisha Carver on 05-03-2023 Bilirubin Ql (U) Negative Negative [facility] Blood erythrocytes count (nu mber/volume)Ordered By: Anisha Carver on 05-03-2023 RBC (Bld) [#/Vol] 4.69 10*6/uL 4.2-5.4 [facility] Blood hemoglobin measurement (mass/volume)Ordered By: Anisha Carver on 05-03-2023 Hemoglobin (Bld) [Mass/Vol] 12.9 g/dL 12.0-15.0 [facility] Blood lymphocytes/100 leukoc ytesOrdered By: Anisha Carver on 05-03-2023 Lymphocytes/100 WBC (Bld) 28.1 % 19-41 [facility] Blood monocytes/100 leukocyt esOrdered By: Anisha Carver on 05-03-2023 Monocytes/100 WBC (Bld) 8.7 % 0-10 [facility] Blood platelet mean volumeOr dered By: Anisha Carver on 05-03-2023 Platelet mean volume (Bld) [Entitic vol] 9.5 fL 6.2-12.0 [facility] Determination of erythrocyte mean corpuscular volume (MCV)Ordered By: Anisha Carver on 05-03-2023 MCV (RBC) [Entitic vol] 83.2 fL 81-99 [facility] Hematocrit Auto (Bld) [Volum e fraction]Ordered By: Anisha Carver on 05-03-2023 Hematocrit (Bld) [Volume fraction] 39.0 % 37-47 [facility] Ketones Test strip Ql (U)Ord ered By: Anisha Carver on 05-03-2023 Ketones Ql (U) Negative Negative [facility] Laboratory - Chemistry and C hemistry - challengeOrdered By: Anisha Carver on 05-03-2023 HCG ( test) Ql (U) Negative [facility] Comment on above: Very dilute urine sp ecimens, as indicated by a low specificgravity, may not contain patient relations representative levels of hCG. If is still suspected, a first morning urinespecimen should be collected 48 hours later and tested. ALP [Catalytic activity/Vol] 48 U/L 45-117 [facility] ALT [Catalytic activity/Vol] 21 U/L 13-56 [facility] CO2 [Moles/Vol] 29.0 mmol/L 21.0-32.0 [facility] Globulin (S) [Mass/Vol] 4.2 g/dL 2.2-4.2 [facility] Lipase [Catalytic activity/Vol] 27 U/L 13-75 [facility] Comment on above: Please note:LIPASE r evised reference range effective 23. New Lipase methodology. Expected to produce lower values than the previous assay method. NEW Reference Range: 13 - 75 U/L Urea nitrogen/Creatinine [Mass ratio] 19.2 mg/mg 10-20 [facility] Laboratory - Hematology and Cell countsOrdered By: Anisha Carver on 05-03-2023 Erythrocyte distribution width (RBC) [Entitic vol] 39.1 fL 35.1-43.9 [facility] Erythrocyte distribution width (RBC) [Ratio] 13.1 % 11.6-14.6 [facility] Immature granulocytes/100 WBC (Bld) 0.300 % 0.0-0.9 [facility] Comment on above: IG% - Immature Granu locytes (promyelocytes, myelocytes and metamyelocytes) > 1% indicates that a LEFT SHIFT is Present. MCH (RBC) [Entitic mass] 27.5 pg 27.0-32.0 [facility] Nucleated RBC/100 WBC (Bld) [Ratio] 0 % 0-5 [facility] MCHC Auto (RBC) [Mass/Vol]Or dered By: Anisha Carver on 05-03-2023 MCHC (RBC) [Mass/Vol] 33.1 g/dL 32-36 [facility] Mucus LM Ql (Urine sed)Order ed By: Anisha Carver on 05-03-2023 Mucus Ql (Urine sed) 0 SEEN /hpf [facility] Nitrite Test strip Ql (U)Ord ered By: Anisha Carver on 05-03-2023 Nitrite Ql (U) Negative Negative [facility] No Panel InformationOrdered By: Anisha Carver on 05-03-2023 Estimated Creatinine Clearance Calc 94.02 ml/min [facility] Estimated GFR (MDRD) Amer 114 mL/min >60 [facility] Comment on above: GFR Calc Estimated GFR (MDRD) Non-Af Amer 94 mL/min >60 [facility] Comment on above: Non- GFR Calc Platelets bldOrdered By: Manny Carver on 05-03-2023 Platelets (Bld) [#/Vol] 399 10*3/uL 150-450 [facility] Protein Test strip Ql (U)Ord ered By: Anisha Carver on 05-03-2023 Protein Ql (U) Negative Negative [facility] Serum or plasma albumin amilcar urement (mass/volume)Ordered By: Anisha Carver on 05-03-2023 Albumin [Mass/Vol] 3.6 g/dL 3.2-5.0 [facility] Serum or plasma albumin/glob ulin mass ratioOrdered By: Anisha Carver on 05-03-2023 Albumin/Globulin [Mass ratio] 0.9 {ratio} 0.9-2.4 [facility] Serum or plasma calcium amilcar urement (mass/volume)Ordered By: Anisha Carver on 05-03-2023 Calcium [Mass/Vol] 9.2 mg/dL 8.5-10.1 [facility] Serum or plasma creatinine m easurement (mass/volume)Ordered By: Anisha Carver on 05-03-2023 Creatinine [Mass/Vol] 0.73 mg/dL 0.55-1.02 [facility] Comment on above: The validity of the calculated GFR & GFRAA in patients over 70 years has not been determined. Clinical correlation is essential. Serum or plasma urea nitroge n measurement (mass/volume)Ordered By: Anisha Carver on 05-03-2023 Urea nitrogen [Mass/Vol] 14 mg/dL 7-18 [facility] Squamous epithelial cells de tection in urine sediment by light microscopyOrdered By: Anisha Carver on 05-03-2023 Epithelial cells.squamous LM Ql (Urine sed) 0 SEEN /hpf 5-10 [facility] Thin prep Papanicolaou smear with manual screeningOrdered By: Anisha Carver on 05-03-2023 Thin prep Papanicolaou smear with manual screening 12 U/L 15-37 [facility] Thin prep Papanicolaou smear with manual screening 4 5-15 [facility] Urine blood detectionOrdered By: Anisha Carver on 05-03-2023 RBC Ql (U) 50 /ul Negative [facility] RBC Ql (U) 0 SEEN /hpf 0-5 [facility] Urine clarityOrdered By: Manny Carver on 05-03-2023 Clarity (U) Clear Clear [facility] Urine color determinationOrd ered By: Anisha Carver on 05-03-2023 Color (U) Yellow Yellow [facility] Urine glucose detectionOrder ed By: Anisha Carver on 05-03-2023 Glucose Ql (U) Normal mg/dl Normal [facility] Urine leukocyte esterase det ection by dipstickOrdered By: Anihsa Carver on 05-03-2023 Leukocyte esterase Test strip Ql (U) Negative Negative [facility] Urine pHOrdered By: Jennifer Carver on 05-03-2023 pH (U) 6.5 [pH] 5.0 - 8.0 [facility] Urine sediment bacteria coun t by microscopy (number/high power field)Ordered By: Anisha Carver on 05-03-2023 Bacteria LM.HPF (Urine sed) [#/Area] 0 /[HPF] None Seen [facility] Urine specific gravity measu rementOrdered By: Anisha Carver on 05-03-2023 Specific gravity (U) [Rel density] 1.015 1.002-1.030 [facility] Urobilinogen Auto test strip Ql (U)Ordered By: Anisha Carver on 05-03-2023 Urobilinogen Ql (U) Normal mg/dl Normal [facility] Cervical or vagninal specime n microscopic examination by cytology stain (reported asOrdered By: Randa Gray on 04-26-2023 Cytology report Cyto stain Doc (Cvx/Vag) Comment . [facility] Comment on above: The Pap smear is a s creening test designed to aid in thedetection of premalignant and malignant conditions of theuterine cervix. It is not a diagnostic procedure andshould not be used as the sole means of detecting cervicalcancer. Both false-positive and false-negative reports dooccur. Detection in cervical specim en of any of human papilloma virus (HPV) 16, 18, 31, 33,Ordered By: Randa Gray on 04-26-2023 HPV 16+18+31+33+35+39+45+51+ 52+56+58+59+66+68 DNA Probe+sig amp Ql (Cvx) Negative Negative [facility] Comment on above: This nucleic acid am plification test detects fourteen high-risk HPV types (16,18,31,33,35,39,45,51,52,56,58,59,66,68)without differentiation. Laboratory - CytologyOrdered By: Randa Gray on 04-26-2023 Iron Launder Operator Cyto stain Nom (Cvx/Vag) [ID] Comment . [facility] Comment on above: Mildred Duffy, Cyto technologist (ASCP) Laboratory - Miscellaneous t estsOrdered By: Randa Gray on 04-26-2023 Service comment (Unsp spec) [Interp] Comment . [facility] Comment on above: This liquid based Th inPrep(R) pap test was screened withthe use of an image guided system. Service comment (Unsp spec) [Interp] . . [facility] Liquid-based cerv Pap + CT/G C by SUYAPA w reflex to high-risk HPV for ASCUSOrdered By: Randa Gray on 04-26-2023 Cytology report Cyto stain.thin prep Doc (Cvx/Vag) Comment . [facility] Comment on above: Criteria not met, HP V Genotype not performed.Performed at: [address] [id number] Director: Amber Toribio MD, Phone: [phone] at: =[address] [id number] Director: Amber Toribio MD, Phone: [phone] No Panel InformationOrdered By: Randa Gray on 04-26-2023 Pathology report final diagnosis Narrative Comment . [facility] Comment on above: NEGATIVE FOR INTRAEP ITHELIAL LESION OR MALIGNANCY. Absolute lymphocyte countOrd ered By: Dr. Soni on 11-17-2022 Lymphocytes Auto (Unsp spec) [#/Vol] 2.74 10*3/uL 0.83-4.51 [facility] Basophil percentageOrdered B y: Dr. Soni on 11-17-2022 Basophils/100 WBC (Bld) 0.6 % 0-1 [facility] Bilirubin [Mass/Vol] 0.40 mg/dL 0.20-1.00 [facility] Comment on above: For patients on eltr ombopag therapy, use of Dimension [place] TBIL is not recommended. Chloride [Moles/Vol] 104 mmol/L 98-107 [facility] Cholesterol [Mass/Vol] 219 mg/dL <[address] [facility] Comment on above: <200 mg/dL Desirable 200-240 mg/dL Borderline >240 mg/dL High Risk Eosinophils/100 WBC (Bld) 2.8 % 0-5 [facility] Glucose [Mass/Vol] 88 mg/dL 74-106 [facility] Neutrophils (Bld) [#/Vol] 3.9 10*3/uL 2.0-7.7 [facility] Neutrophils/100 WBC (Bld) 50.2 % 47-70 [facility] Potassium [Moles/Vol] 4.2 mmol/L 3.5-5.1 [facility] Protein [Mass/Vol] 7.6 g/dL 6.4-8.2 [facility] Sodium [Moles/Vol] 137 mmol/L 136-145 [facility] Triglyceride [Mass/Vol] 109 mg/dL <199 [facility] Comment on above: The drugs N-Acetylcy steine and Metamizole may falsely depress this assay.Serum Triglycerides Reference Interval Normal <150 mg/dL Borderline high 150 - 199 mg/dL High 200 - 499 mg/dL Very High > or = 500 mg/dL WBC (Bld) [#/Vol] 7.7 10*3/uL 4.4-11.0 [facility] Blood erythrocytes count (nu mber/volume)Ordered By: Dr. Soni on 11-17-2022 RBC (Bld) [#/Vol] 4.59 10*6/uL 4.2-5.4 [facility] Blood hemoglobin measurement (mass/volume)Ordered By: Dr. Soni on 11-17-2022 Hemoglobin (Bld) [Mass/Vol] 12.8 g/dL 12.0-15.0 [facility] Blood lymphocytes/100 leukoc ytesOrdered By: Dr. Soni on 11-17-2022 Lymphocytes/100 WBC (Bld) 35.5 % 19-41 [facility] Blood monocytes/100 leukocyt esOrdered By: Dr. Soni on 11-17-2022 Monocytes/100 WBC (Bld) 10.5 % 0-10 [facility] Blood platelet mean volumeOr dered By: Dr. Soni on 11-17-2022 Platelet mean volume (Bld) [Entitic vol] 9.7 fL 6.2-12.0 [facility] Determination of erythrocyte mean corpuscular volume (MCV)Ordered By: Dr. Soni on 11-17-2022 MCV (RBC) [Entitic vol] 83.4 fL 81-99 [facility] Hematocrit Auto (Bld) [Volum e fraction]Ordered By: Dr. Soni on 11-17-2022 Hematocrit (Bld) [Volume fraction] 38.3 % 37-47 [facility] Laboratory - Chemistry and C hemistry - challengeOrdered By: Dr. Soni on 11-17-2022 ALP [Catalytic activity/Vol] 45 U/L 45-117 [facility] ALT [Catalytic activity/Vol] 17 U/L 13-56 [facility] CO2 [Moles/Vol] 27.0 mmol/L 21.0-32.0 [facility] Globulin (S) [Mass/Vol] 4.1 g/dL 2.2-4.2 [facility] Urea nitrogen/Creatinine [Mass ratio] 21.7 mg/mg 10-20 [facility] Laboratory - Hematology and Cell countsOrdered By: Dr. Soni on 11-17-2022 Erythrocyte distribution width (RBC) [Entitic vol] 38.7 fL 35.1-43.9 [facility] Erythrocyte distribution width (RBC) [Ratio] 13.0 % 11.6-14.6 [facility] Immature granulocytes/100 WBC (Bld) 0.400 % 0.0-0.9 [facility] Comment on above: IG% - Immature Granu locytes (promyelocytes, myelocytes and metamyelocytes) > 1% indicates that a LEFT SHIFT is Present. MCH (RBC) [Entitic mass] 27.9 pg 27.0-32.0 [facility] Nucleated RBC/100 WBC (Bld) [Ratio] 0 % 0-5 [facility] MCHC Auto (RBC) [Mass/Vol]Or dered By: Dr. Soni on 11-17-2022 MCHC (RBC) [Mass/Vol] 33.4 g/dL 32-36 [facility] No Panel InformationOrdered By: Dr. Soni on 11-17-2022 Estimated GFR (MDRD) Amer 99 mL/min >60 [facility] Comment on above: GFR Calc Estimated GFR (MDRD) Non-Af Amer 82 mL/min >60 [facility] Comment on above: Non- GFR Calc Platelets bldOrdered By: Dr. Soni on 11-17-2022 Platelets (Bld) [#/Vol] 452 10*3/uL 150-450 [facility] Serum or plasma albumin amilcar urement (mass/volume)Ordered By: Dr. Soni on 11-17-2022 Albumin [Mass/Vol] 3.5 g/dL 3.2-5.0 [facility] Serum or plasma albumin/glob ulin mass ratioOrdered By: Dr. Soni on 11-17-2022 Albumin/Globulin [Mass ratio] 0.9 {ratio} 0.9-2.4 [facility] Serum or plasma calcium amilcar urement (mass/volume)Ordered By: Dr. Soni on 11-17-2022 Calcium [Mass/Vol] 9.2 mg/dL 8.5-10.1 [facility] Serum or plasma cholesterol in HDL measurement (mass/volume)Ordered By: Dr. Soni on 11-17-2022 Cholesterol in HDL [Mass/Vol] 46 mg/dL >40 [facility] Comment on above: The drugs N-Acetylcy steine and Metamizole may falsely depress this assay. Reference Range HDL <40 mg/dL Low HDL Cholesterol HDL >or= 60 mg/dL High HDL Cholesterol Serum or plasma cholesterol in VLDL measurement (mass/volume)Ordered By: Dr. Soni on 11-17-2022 Cholesterol in VLDL [Mass/Vol] 22 mg/dL 5-40 [facility] Serum or plasma creatinine m easurement (mass/volume)Ordered By: Dr. Soni on 11-17-2022 Creatinine [Mass/Vol] 0.83 mg/dL 0.55-1.02 [facility] Comment on above: The validity of the calculated GFR & GFRAA in patients over 70 years has not been determined. Clinical correlation is essential. Serum or plasma low density lipoprotein (LDL) cholesterol measurement (mass/volume)Ordered By: Dr. Soni on 11-17-2022 Cholesterol in LDL [Mass/Vol] 151 mg/dL 0-130 [facility] Serum or plasma urea nitroge n measurement (mass/volume)Ordered By: Dr. Soni on 11-17-2022 Urea nitrogen [Mass/Vol] 18 mg/dL 7-18 [facility] Thin prep Papanicolaou smear with manual screeningOrdered By: Dr. Soni on 11-17-2022 Thin prep Papanicolaou smear with manual screening 10 U/L 15-37 [facility] Thin prep Papanicolaou smear with manual screening 6 5-15 [facility] Whole blood hemoglobin A1c/t otal hemoglobin ratio (mass fraction)Ordered By: Dr. Soni on 11-17-2022 HbA1c (Bld) [Mass fraction] 5.1 % 3.8-5.6 [facility] Comment on above: Normal < 5.7 % Predi abetic 5.7 - 6.4 % Diabetic >or= 6.5 % Please note range changes. Absolute lymphocyte countOrd ered By: Dr. Soni on 11-13-2022 Lymphocytes Auto (Unsp spec) [#/Vol] 2.96 10*3/uL 0.83-4.51 [facility] Basophil percentageOrdered B y: Dr. Soni on 11-13-2022 Basophils/100 WBC (Bld) 0.6 % 0-1 [facility] Bilirubin [Mass/Vol] 0.20 mg/dL 0.20-1.00 [facility] Comment on above: For patients on eltr ombopag therapy, use of Dim[place] TBIL is not recommended. Chloride [Moles/Vol] 105 mmol/L 98-107 [facility] Eosinophils/100 WBC (Bld) 3.5 % 0-5 [facility] Glucose [Mass/Vol] 97 mg/dL 74-106 [facility] Neutrophils (Bld) [#/Vol] 4.7 10*3/uL 2.0-7.7 [facility] Neutrophils/100 WBC (Bld) 53.4 % 47-70 [facility] Potassium [Moles/Vol] 3.8 mmol/L 3.5-5.1 [facility] Protein [Mass/Vol] 7.8 g/dL 6.4-8.2 [facility] Sodium [Moles/Vol] 138 mmol/L 136-145 [facility] WBC (Bld) [#/Vol] 8.8 10*3/uL 4.4-11.0 [facility] Blood erythrocytes count (nu mber/volume)Ordered By: Dr. Soni on 11-13-2022 RBC (Bld) [#/Vol] 4.66 10*6/uL 4.2-5.4 [facility] Blood hemoglobin measurement (mass/volume)Ordered By: Dr. Soni on 11-13-2022 Hemoglobin (Bld) [Mass/Vol] 12.8 g/dL 12.0-15.0 [facility] Blood lymphocytes/100 leukoc ytesOrdered By: Dr. Soni on 11-13-2022 Lymphocytes/100 WBC (Bld) 33.8 % 19-41 [facility] Blood monocytes/100 leukocyt esOrdered By: Dr. Soni on 11-13-2022 Monocytes/100 WBC (Bld) 8.2 % 0-10 [facility] Blood platelet mean volumeOr dered By: Dr. Soni on 11-13-2022 Platelet mean volume (Bld) [Entitic vol] 9.5 fL 6.2-12.0 [facility] Determination of erythrocyte mean corpuscular volume (MCV)Ordered By: Dr. Soni on 11-13-2022 MCV (RBC) [Entitic vol] 83.5 fL 81-99 [facility] Hematocrit Auto (Bld) [Volum e fraction]Ordered By: Dr. Soni on 11-13-2022 Hematocrit (Bld) [Volume fraction] 38.9 % 37-47 [facility] Laboratory - Chemistry and C hemistry - challengeOrdered By: Dr. Soni on 11-13-2022 ALP [Catalytic activity/Vol] 47 U/L 45-117 [facility] ALT [Catalytic activity/Vol] 21 U/L 13-56 [facility] CO2 [Moles/Vol] 27.0 mmol/L 21.0-32.0 [facility] Globulin (S) [Mass/Vol] 4.6 g/dL 2.2-4.2 [facility] Urea nitrogen/Creatinine [Mass ratio] 17.6 mg/mg 10-20 [facility] Laboratory - Hematology and Cell countsOrdered By: Dr. Soni on 11-13-2022 Erythrocyte distribution width (RBC) [Entitic vol] 38.6 fL 35.1-43.9 [facility] Erythrocyte distribution width (RBC) [Ratio] 12.8 % 11.6-14.6 [facility] Immature granulocytes/100 WBC (Bld) 0.500 % 0.0-0.9 [facility] Comment on above: IG% - Immature Granu locytes (promyelocytes, myelocytes and metamyelocytes) > 1% indicates that a LEFT SHIFT is Present. MCH (RBC) [Entitic mass] 27.5 pg 27.0-32.0 [facility] Nucleated RBC/100 WBC (Bld) [Ratio] 0 % 0-5 [facility] MCHC Auto (RBC) [Mass/Vol]Or dered By: Dr. Soni on 11-13-2022 MCHC (RBC) [Mass/Vol] 32.9 g/dL 32-36 [facility] No Panel InformationOrdered By: Dr. Soni on 11-13-2022 Estimated GFR (MDRD) Amer 89 mL/min >60 [facility] Comment on above: GFR Calc Estimated GFR (MDRD) Non-Af Amer 73 mL/min >60 [facility] Comment on above: Non- GFR Calc Platelets bldOrdered By: Dr. Soni on 11-13-2022 Platelets (Bld) [#/Vol] 483 10*3/uL 150-450 [facility] Serum or plasma albumin amilcar urement (mass/volume)Ordered By: Dr. Soni on 11-13-2022 Albumin [Mass/Vol] 3.2 g/dL 3.2-5.0 [facility] Serum or plasma albumin/glob ulin mass ratioOrdered By: Dr. Soni on 11-13-2022 Albumin/Globulin [Mass ratio] 0.7 {ratio} 0.9-2.4 [facility] Serum or plasma calcium amilcar urement (mass/volume)Ordered By: Dr. Soni on 11-13-2022 Calcium [Mass/Vol] 8.9 mg/dL 8.5-10.1 [facility] Serum or plasma creatinine m easurement (mass/volume)Ordered By: Dr. Soni on 11-13-2022 Creatinine [Mass/Vol] 0.91 mg/dL 0.55-1.02 [facility] Comment on above: The validity of the calculated GFR & GFRAA in patients over 70 years has not been determined. Clinical correlation is essential. Serum or plasma urea nitroge n measurement (mass/volume)Ordered By: Dr. Soni on 11-13-2022 Urea nitrogen [Mass/Vol] 16 mg/dL 7-18 [facility] Thin prep Papanicolaou smear with manual screeningOrdered By: Dr. Soni on 11-13-2022 Thin prep Papanicolaou smear with manual screening 15 U/L 15-37 [facility] Thin prep Papanicolaou smear with manual screening 6 5-15 [facility] Basophil percentageOrdered B y: Dr. Soni on 08-09-2022 Chloride [Moles/Vol] 107 mmol/L 98-107 [facility] Glucose [Mass/Vol] 88 mg/dL 74-106 [facility] Potassium [Moles/Vol] 4.0 mmol/L 3.5-5.1 [facility] Sodium [Moles/Vol] 142 mmol/L 136-145 [facility] Laboratory - Chemistry and C hemistry - challengeOrdered By: Dr. Soni on 08-09-2022 CO2 [Moles/Vol] 28.0 mmol/L 21.0-32.0 [facility] Urea nitrogen/Creatinine [Mass ratio] 28.0 mg/mg 10-20 [facility] No Panel InformationOrdered By: Dr. Soni on 08-09-2022 Estimated GFR (MDRD) Amer 125 mL/min >60 [facility] Comment on above: GFR Calc Estimated GFR (MDRD) Non-Af Amer 103 mL/min >60 [facility] Comment on above: Non- GFR Calc Serum or plasma calcium amilcar urement (mass/volume)Ordered By: Dr. Soni on 08-09-2022 Calcium [Mass/Vol] 9.0 mg/dL 8.5-10.1 [facility] Serum or plasma creatinine m easurement (mass/volume)Ordered By: Dr. Soni on 08-09-2022 Creatinine [Mass/Vol] 0.68 mg/dL 0.55-1.02 [facility] Comment on above: The validity of the calculated GFR & GFRAA in patients over 70 years has not been determined. Clinical correlation is essential. Serum or plasma urea nitroge n measurement (mass/volume)Ordered By: Dr. Soni on 08-09-2022 Urea nitrogen [Mass/Vol] 19 mg/dL 7-18 [facility] Thin prep Papanicolaou smear with manual screeningOrdered By: Dr. Soni on 08-09-2022 Thin prep Papanicolaou smear with manual screening 7 5-15 [facility] Laboratory - Microbiology an d Antimicrobial susceptibilityon 06-13-2022 SARS-CoV-2 (COVID-19) RNA SUYAPA+probe Ql (Unsp spec) Not detected Not Detect [facility] Work Phone: Comment on above: Normal Reference Ran ge: Not DetectedMethod:(RT-PCR) real-time reverse transcriptase PCRLuminex DEYVI Instrument*The Food and Drug Administration (FDA) has issued an Emergency Use Authorization (EAU) for the DYEVI SARS-CoV-2 Assay for the rapid detection of the virus that causes COVID-19. This test has been validated, but the [facility] independent review of this validation is pending.*Negative results do not preclude infection and should not be used as the sole basis for treatment or patient management. Optimum specimen types and timing for peak viral levels during infections caused by SARS-CoV-2 have not been determined. Collection of multiple specimens from the same patient may be necessary to detect the virus. The possibility of a false negative result should be considered if the patient has clinical presentation or has had recent exposure. Absolute lymphocyte counton 01-02-2022 Lymphocytes Auto (Unsp spec) [#/Vol] 2.20 10*3/uL 0.83-4.51 [facility] Work Phone: [phone] Basophil percentageon 2021 Basophils/100 WBC (Bld) 0.6 % 0-1 [facility] Work Phone: [phone] Bilirubin [Mass/Vol] 0.20 mg/dL 0.20-1.00 [facility] Work Phone: Comment on above: For patients on eltr ombopag therapy, use of Dimension [place] TBIL is not recommended. Chloride [Moles/Vol] 105 mmol/L 98-107 [facility] Work Phone: Eosinophils/100 WBC (Bld) 1.3 % 0-5 [facility] Work Phone: [phone] Glucose [Mass/Vol] 90 mg/dL 74-106 [facility] Work Phone: Neutrophils (Bld) [#/Vol] 6.6 10*3/uL 2.0-7.7 [facility] Work Phone: Neutrophils/100 WBC (Bld) 66.6 % 47-70 [facility] Work Phone: Potassium [Moles/Vol] 3.6 mmol/L 3.5-5.1 [facility] Work Phone: [phone] Protein [Mass/Vol] 7.3 g/dL 6.4-8.2 [facility] Work Phone: Sodium [Moles/Vol] 138 mmol/L 136-145 [facility] Work Phone: WBC (Bld) [#/Vol] 9.9 10*3/uL 4.4-11.0 [facility] Work Phone: Cholesterol [Mass/Vol] 214 mg/dL <200 [facility] Work Phone: Comment on above: <200 mg/dL Desirable 200-240 mg/dL Borderline >240 mg/dL High Risk Triglyceride [Mass/Vol] 174 mg/dL [facility] Work Phone: Comment on above: The drugs N-Acetylcy steine and Metamizole may falsely depress this assay.Serum Triglycerides Reference Interval Normal <150 mg/dL Borderline high 150 - 199 mg/dL High 200 - 499 mg/dL Very High > or = 500 mg/dL Blood erythrocytes count (nu mber/volume)on 01-02-2022 RBC (Bld) [#/Vol] 4.44 10*6/uL 4.2-5.4 [facility] Work Phone: Blood hemoglobin measurement (mass/volume)on 01-02-2022 Hemoglobin (Bld) [Mass/Vol] 12.6 g/dL 12.0-15.0 [facility] Work Phone: Blood lymphocytes/100 leukoc yteson 01-02-2022 Lymphocytes/100 WBC (Bld) 22.1 % 19-41 [facility] Work Phone: Blood monocytes/100 leukocyt eson 01-02-2022 Monocytes/100 WBC (Bld) 9.1 % 0-10 [facility] Work Phone: Blood platelet mean volumeon 01-02-2022 Platelet mean volume (Bld) [Entitic vol] 10.0 fL 6.2-12.0 [facility] Work Phone: Determination of erythrocyte mean corpuscular volume (MCV)on 01-02-2022 MCV (RBC) [Entitic vol] 84.2 fL 81-99 [facility] Work Phone: Hematocrit Auto (Bld) [Volum e fraction]on 01-02-2022 Hematocrit (Bld) [Volume fraction] 37.4 % 37-47 [facility] Work Phone: Laboratory - Chemistry and C hemistry - challengeon 01-02-2022 ALP [Catalytic activity/Vol] 46 U/L 45-117 [facility] Work Phone: ALT [Catalytic activity/Vol] 16 U/L 13-56 [facility] Work Phone: [phone] CO2 [Moles/Vol] 29.0 mmol/L 21.0-32.0 [facility] Work Phone: Globulin (S) [Mass/Vol] 3.8 g/dL 2.2-4.2 [facility] Work Phone: Urea nitrogen/Creatinine [Mass ratio] 26.5 mg/mg 10-20 [facility] Work Phone: Laboratory - Hematology and Cell countson 01-02-2022 Erythrocyte distribution width (RBC) [Entitic vol] 38.4 fL 35.1-43.9 [facility] Work Phone: Erythrocyte distribution width (RBC) [Ratio] 12.6 % 11.6-14.6 [facility] Work Phone: Immature granulocytes/100 WBC (Bld) 0.300 % 0.0-0.9 [facility] Work Phone: Comment on above: IG% - Immature Granu locytes (promyelocytes, myelocytes and metamyelocytes) > 1% indicates that a LEFT SHIFT is Present. MCH (RBC) [Entitic mass] 28.4 pg 27.0-32.0 [facility] Work Phone: Nucleated RBC/100 WBC (Bld) [Ratio] 0 % 0-5 [facility] Work Phone: MCHC Auto (RBC) [Mass/Vol]on 01-02-2022 MCHC (RBC) [Mass/Vol] 33.7 g/dL 32-36 [facility] Work Phone: No Panel Informationon 01-02 Estimated GFR (MDRD) Amer 125 mL/min >60 [facility] Work Phone: Comment on above: GFR Calc Estimated GFR (MDRD) Non-Af Amer 103 mL/min >60 [facility] Work Phone: Comment on above: Non- GFR Calc Platelets bldon 01-02-2022 Platelets (Bld) [#/Vol] 383 10*3/uL 150-450 [facility] Work Phone: Serum or plasma albumin amilcar urement (mass/volume)on 01-02-2022 Albumin [Mass/Vol] 3.5 g/dL 3.2-5.0 [facility] Work Phone: Serum or plasma albumin/glob ulin mass ratioon 01-02-2022 Albumin/Globulin [Mass ratio] 0.9 {ratio} 0.9-2.4 [facility] Work Phone: Serum or plasma calcium amilcar urement (mass/volume)on 01-02-2022 Calcium [Mass/Vol] 8.9 mg/dL 8.5-10.1 [facility] Work Phone: Serum or plasma cholesterol in HDL measurement (mass/volume)on 01-02-2022 Cholesterol in HDL [Mass/Vol] 47 mg/dL [facility] Work Phone: Comment on above: The drugs N-Acetylcy steine and Metamizole may falsely depress this assay. Reference Range HDL <40 mg/dL Low HDL Cholesterol HDL >or= 60 mg/dL High HDL Cholesterol Serum or plasma cholesterol in VLDL measurement (mass/volume)on 01-02-2022 Cholesterol in VLDL [Mass/Vol] 35 mg/dL 5-40 [facility] Work Phone: Serum or plasma creatinine m easurement (mass/volume)on 01-02-2022 Creatinine [Mass/Vol] 0.68 mg/dL 0.55-1.02 [facility] Work Phone: Comment on above: The validity of the calculated GFR & GFRAA in patients over 70 years has not been determined. Clinical correlation is essential. Serum or plasma low density lipoprotein (LDL) cholesterol measurement (mass/volume)on 01-02-2022 Cholesterol in LDL [Mass/Vol] 132 mg/dL 0-130 [facility] Work Phone: Serum or plasma urea nitroge n measurement (mass/volume)on 01-02-2022 Urea nitrogen [Mass/Vol] 18 mg/dL 7-18 [facility] Work Phone: Thin prep Papanicolaou smear with manual screeningon 01-02-2022 Thin prep Papanicolaou smear with manual screening 8 U/L 15-37 [facility] Work Phone: Thin prep Papanicolaou smear with manual screening 4 5-15 [facility] Work Phone: XR SPINE LUMBOSACRAL 5 VIEWS on 11-04-2021 XR SPINE LUMBOSACRAL 5 VIEWS EXAM: XR SPINE LUMBOSACRAL 5 VIEWS, 11/04/2021 09:39 AM COMPARISON: Compared to prior study dated March 16, 2020. CLINICAL INDICATIONS: low back pain RELEVANT CLINICAL HISTORY: M54.50:Low back pain, unspecified back pain laterality, unspecified chronicity, unspecified whether sciatica present FINDINGS: 5 images obtained including flexion and extension lateral views. Vertebral: There are 5 typical lumbar spine vertebral bodies in anatomic alignment. Flexion and extension views obtained without development of spondylolisthesis. No compression fracture. No spondylolysis. Disc: Narrowing of the L4-5 and L5-S1 disc spaces with minimal osteophyte formation. Joint: Facet joints are anatomically aligned. IMPRESSION: Degenerative disc disease lower lumbar spine. No evidence of instability with flexion and extension. Normal [facility] - Chemistry and C hemistry - challengeon 10-03-2021 Free T4 [Mass/Vol] 0.93 ng/dL 0.76-1.46 [facility] Work Phone: No Panel Informationon 10-03 Thyroid Stimulating Hormone (TSH) 0.79 uIU/mL 0.358-3.74 [facility] Work Phone: CNPNon 01-10-2021 CNPN Telephone (FAMPWS) DADA ANGULO ([id number]) 1985 F Date Time Provider Department 01/10/21 [facility] During your visit today, we recorded the following information about you: Ludmila Bridges RN 01/10/2021 8:16 AM Signed Patient reports she has a sinus infection with symptoms since : sinus pressure and in cheek bones, drainage down back of throat that causes cough, yellow/greenish thick, no fever, no LEE. Reports she has history of frequent sinus infections. Last time went to , was prescribed amoxicillin- which did nothing. Saw ENT at that time, and ended up taking 2 ten day prescriptions of cefdinir, which did get rid of it. Scheduled same day appt with doctor. Ayla Dong Ma 01/10/2021 9:32 AM Signed Switched to virtual per CB request. Allergies As of Date: 01/10/2021 Noted Allergy Reaction CLINDAMYCIN 03/02/2006 TORADOL (KETOROLAC TROMETHAMINE) 07/11/2016 4 - Hives ZOFRAN (ONDANSETRON HCL (PF)) 07/11/2016 4 - Hives Date Reviewed: 12/16/2020 Reviewed by: Kait ([facility]) CYNTHIA Bear - Fully Assessed Reason for Visit: Sinus Infection,frequent/r ecurring [1167] Prescriptions as of 01/10/2021 Sig: OTC NUTRITIONAL SUPPLEMENT Take by mouth once daily. Mar* LISINOPRIL 5 MG TABLET Take 1 tablet by mouth once d* B COMPLEX 1 ORAL Take 15 Drops by mouth once d* Problem List As Of Date 01/10/2021 Noted Resolved COMMON MIGRAINE [346.1] 10/30/2006 Hives of unknown origin [L50.9] 04/14/2015 04/23/2016 Chronic urticaria [L50.8] 03/14/2016 Benign hypertension [I10] 04/23/2016 Right upper quadrant abdominal pain [R10.11] 10/16/2017 Obesity, Class II, BMI 35-39.9 [E66.9] 12/09/2018 Left lumbar radiculopathy [M54.16] 02/10/2019 Pneumonia of right middle lobe due to infectiou*11/28/2019 Elevated ALT measurement [R74.01] 06/14/2020 Encounter Status:Closed by AYLA DONG MA on 01/10/21 Normal [facility] CNOVon 12-16-2020 CNOV Office Visit (FAMPWS) DADA ANGULO ([id number]) 1985 F Date Time Provider Department 12/16/20 10:20 AM ROBYN PAVON IIIPMAYRA During your visit today, we recorded the following information about you: Pulse Respiration Blood pressure Weight 85/minute 16/minute 127/85 106.6 kg Last Period 12/07/19 Robyn Pavon III MD 12/16/2020 1:31 PM Signed SUBJECTIVE: This is a 35 year old [...] tablet by mouth once daily. No current facility-administere d medications on file prior to visit. PAST [...] (A) JOSE Pattern Unknown Atypical speckled ANAP BOBBY Reflex Bill Unknown Billed for services performed JOSE by EIA, Qual Latest Ref Range: Negative Positive (A) Positive (A) JOSE by EIA Latest Units: OD Ratio 1.0 1.0 DNA Antibody w/Confirmation Latest Ref Range: <30 IU/mL <12 REHAB NURSING TECH Antibody Latest Ref Range: <1.0 AI 1.4 (H) Ribosomal REHAB NURSING TECH Latest Ref Range: <1.0 AI <0.2 SSB [...] Latest Ref Range: 1.45 - 7.50 k/uL 7 (more content not included)... Normal [facility] No Panel Information Respiratory Panel (PCR) Parainfluenza 1 [facility] Work Phone: Vital Signs Date Time Vital Sign Value Performing Clinician Bashir reyna 06-01-2025 11:08-0400 Body height 165.[address] Neela Soni MD Work Phone: [facility] 06-01-2025 11:08-0400 Body mass index (BMI) [Ratio] 45.9 kg/m2 Dr. Neela Soni MD Work Phone: [facility] 06-01-2025 11:08-0400 Body weight 125.[address] Neela Soni MD Work Phone: [facility] 06-01-2025 11:08-0400 Diastolic blood pressure 84 mm[Hg] Dr. Neela Soni MD Work Phone: [facility] 06-01-2025 11:08-0400 Systolic blood pressure 140 mm[Hg] Dr. Neela Soni MD Work Phone: [facility] 05-11-2025 15:05-0400 Body height 165.[address] Neela Soni MD Work Phone: [facility] 05-11-2025 15:05-0400 Body mass index (BMI) [Ratio] 45.6 kg/m2 Dr. Neela Soni MD Work Phone: [facility] 05-11-2025 15:05-0400 Body temperature 99.5 [degF] Dr. Neela Soni MD Work Phone: [facility] 05-11-2025 15:05-0400 Body weight 124.[address] Neela Soni MD Work Phone: [facility] 05-11-2025 15:05-0400 Diastolic blood pressure 68 mm[Hg] Dr. Neela Soni MD Work Phone: [facility] 05-11-2025 15:05-0400 Heart rate 83 /min Dr. Neela Soni MD Work Phone: [facility] 05-11-2025 15:05-0400 Respiratory rate 16 /min Dr. Neela Soni MD Work Phone: [facility] 05-11-2025 15:05-0400 SaO2% (BldA) [Mass fraction] 96 % Dr. Neela Soni MD Work Phone: [facility] 05-11-2025 15:05-0400 Systolic blood pressure 110 mm[Hg] Dr. Neela Soni MD Work Phone: [facility] 05-11-2025 15:01-0400 Body mass index (BMI) [Ratio] 46 kg/m2 Dr. Neela Soni MD Work Phone: [facility] 05-11-2025 15:01-0400 Body weight 125.[address] Neela Soni MD Work Phone: [facility] 05-11-2025 15:01-0400 Diastolic blood pressure 90 mm[Hg] Dr. Neela Soni MD Work Phone: [facility] 05-11-2025 15:01-0400 Systolic blood pressure 138 mm[Hg] Dr. Neela Soni MD Work Phone: [facility] 12-24-2024 08:44-0400 Body height 165.[address] Neela Soni MD Work Phone: [facility] 12-24-2024 08:44-0400 Body mass index (BMI) [Ratio] 43.9 kg/m2 Dr. Neela Soni MD Work Phone: [facility] 12-24-2024 08:44-0400 Body temperature 98.6 [degF] Dr. Neela Soni MD Work Phone: [facility] 12-24-2024 08:44-0400 Body weight 119.[address] Neela Soni MD Work Phone: [facility] 12-24-2024 08:44-0400 Diastolic blood pressure 92 mm[Hg] Dr. Neela Soni MD Work Phone: [facility] 12-24-2024 08:44-0400 Heart rate 84 /min Dr. Neela Soni MD Work Phone: [facility] 12-24-2024 08:44-0400 Respiratory rate 16 /min Dr. Neela Soni MD Work Phone: [facility] 12-24-2024 08:44-0400 SaO2% (BldA) [Mass fraction] 99 % Dr. Neela Soni MD Work Phone: [facility] 12-24-2024 08:44-0400 Systolic blood pressure 132 mm[Hg] Dr. Neela Soni MD Work Phone: [facility] 09-22-2024 13:10-0500 Body mass index (BMI) [Ratio] 43.6 kg/m2 Dr. Neela Soni MD Work Phone: [facility] 09-22-2024 13:10-0500 Body temperature 97.9 [degF] Dr. Neela Soni MD Work Phone: [facility] 09-22-2024 13:10-0500 Body weight 118.[address] Neela Soni MD Work Phone: [facility] 09-22-2024 13:10-0500 Diastolic blood pressure 78 mm[Hg] Dr. Neela Soni MD Work Phone: [facility] 09-22-2024 13:10-0500 Heart rate 76 /min Dr. Neela Soni MD Work Phone: [facility] 09-22-2024 13:10-0500 Respiratory rate 16 /min Dr. Neela Soni MD Work Phone: [facility] 09-22-2024 13:10-0500 SaO2% (BldA) [Mass fraction] 96 % Dr. Neela Soni MD Work Phone: [facility] 09-22-2024 13:10-0500 Systolic blood pressure 120 mm[Hg] Dr. Neela Soni MD Work Phone: [facility] 09-01-2024 12:22-0500 Body temperature 98.7 [degF] Dr. Neela Soni MD Work Phone: [facility] 09-01-2024 12:22-0500 Diastolic blood pressure 70 mm[Hg] Dr. Neela Soni MD Work Phone: [facility] 09-01-2024 12:22-0500 Heart rate 79 /min Dr. Neela Soni MD Work Phone: [facility] 09-01-2024 12:22-0500 Respiratory rate 12 /min Dr. Neela Soni MD Work Phone: [facility] 09-01-2024 12:22-0500 SaO2% (BldA) [Mass fraction] 98 % Dr. Neela Soni MD Work Phone: [facility] 09-01-2024 12:22-0500 Systolic blood pressure 118 mm[Hg] Dr. Neela Soni MD Work Phone: [facility] 12-26-2023 08:20-0400 Body height 165.[address] Neela Soni Work Phone: [facility] 12-26-2023 08:20-0400 Body mass index (BMI) [Ratio] 41.9 kg/m2 Dr. Neela Soni Work Phone: [facility] 12-26-2023 08:20-0400 Body temperature 97.3 [degF] Dr. Neela Soni Work Phone: [facility] 12-26-2023 08:20-0400 Body weight 114.[address] Neela Soni Work Phone: [facility] 12-26-2023 08:20-0400 Diastolic blood pressure 78 mm[Hg] Dr. Neela Soni Work Phone: [facility] 12-26-2023 08:20-0400 Heart rate 76 /min Dr. Neela Soni Work Phone: [facility] 12-26-2023 08:20-0400 Respiratory rate 16 /min Dr. Neela Soni Work Phone: [facility] 12-26-2023 08:20-0400 SaO2% (BldA) [Mass fraction] 98 % Dr. Neela Soni Work Phone: [facility] 12-26-2023 08:20-0400 Systolic blood pressure 116 mm[Hg] Dr. Neela Soni Work Phone: [facility] 10-18-2023 15:05-0500 Body mass index (BMI) [Ratio] 39.7 kg/m2 Dr. Neela Soni Work Phone: [facility] 10-18-2023 15:05-0500 Body temperature 99.2 [degF] Dr. Neela Soni Work Phone: [facility] 10-18-2023 15:05-0500 Body weight 108.[address] Neela Soni Work Phone: [facility] 10-18-2023 15:05-0500 Diastolic blood pressure 82 mm[Hg] Dr. Neela Soni Work Phone: [facility] 10-18-2023 15:05-0500 Heart rate 121 /min Dr. Neela Soni Work Phone: [facility] 10-18-2023 15:05-0500 Respiratory rate 16 /min Dr. Neela Soni Work Phone: [facility] 10-18-2023 15:05-0500 SaO2% (BldA) [Mass fraction] 98 % Dr. Neela Soni Work Phone: [facility] 10-18-2023 15:05-0500 Systolic blood pressure 128 mm[Hg] Dr. Neela Soni Work Phone: [facility] 09-28-2023 08:01-0500 Body height 165.[address] Neela Soni Work Phone: [facility] 09-28-2023 08:01-0500 Body mass index (BMI) [Ratio] 41.4 kg/m2 Dr. Neela Soni Work Phone: [facility] 09-28-2023 08:01-0500 Body temperature 97.1 [degF] Dr. Neela Soni Work Phone: [facility] 09-28-2023 08:01-0500 Body weight [address] Neela Soni Work Phone: [facility] 09-28-2023 08:01-0500 Diastolic blood pressure 74 mm[Hg] Dr. Neela Soni Work Phone: [facility] 09-28-2023 08:01-0500 Heart rate 75 /min Dr. Neela Soni Work Phone: [facility] 09-28-2023 08:01-0500 Respiratory rate 16 /min Dr. Neela Soni Work Phone: [facility] 09-28-2023 08:01-0500 SaO2% (BldA) [Mass fraction] 99 % Dr. Neela Soni Work Phone: [facility] 09-28-2023 08:01-0500 Systolic blood pressure 122 mm[Hg] Dr. Neela Soni Work Phone: [facility] 08-24-2023 09:07-0500 Body mass index (BMI) [Ratio] 41.3 kg/m2 Dr. Neela Soni Work Phone: [facility] 08-24-2023 09:07-0500 Body temperature 97.4 [degF] Dr. Neela Soni Work Phone: [facility] 08-24-2023 09:07-0500 Body weight 112.[address] Neela Soni Work Phone: [facility] 08-24-2023 09:07-0500 Diastolic blood pressure 62 mm[Hg] Dr. Neela Soni Work Phone: [facility] 08-24-2023 09:07-0500 Heart rate 97 /min Dr. Neela Soni Work Phone: [facility] 08-24-2023 09:07-0500 Respiratory rate 16 /min Dr. Neela Soni Work Phone: [facility] 08-24-2023 09:07-0500 SaO2% (BldA) [Mass fraction] 99 % Dr. Neela Soni Work Phone: [facility] 08-24-2023 09:07-0500 Systolic blood pressure 118 mm[Hg] Dr. Neela Soni Work Phone: [facility] 08-17-2023 08:20-0500 Body mass index (BMI) [Ratio] 40.8 kg/m2 Dr. Neela Soni Work Phone: [facility] 08-17-2023 08:20-0500 Body temperature 98.3 [degF] Dr. Neela Soni Work Phone: [facility] 08-17-2023 08:20-0500 Body weight 111.[address] Neela Soni Work Phone: [facility] 08-17-2023 08:20-0500 Diastolic blood pressure 76 mm[Hg] Dr. Neela Soni Work Phone: [facility] 08-17-2023 08:20-0500 Heart rate 79 /min Dr. Neela Soni Work Phone: [facility] 08-17-2023 08:20-0500 Respiratory rate 16 /min Dr. Neela Soni Work Phone: [facility] 08-17-2023 08:20-0500 SaO2% (BldA) [Mass fraction] 98 % Dr. Neela Soni Work Phone: [facility] 08-17-2023 08:20-0500 Systolic blood pressure 130 mm[Hg] Dr. Neela Soni Work Phone: [facility] 07-30-2023 11:44-0500 Body height 165.[address] Neela Soni Work Phone: [facility] 07-30-2023 11:42-0500 Body mass index (BMI) [Ratio] 40.8 kg/m2 Dr. Neela Soni Work Phone: [facility] 07-30-2023 11:42-0500 Body weight 111.[address] Neela Soni Work Phone: [facility] 07-30-2023 11:42-0500 Diastolic blood pressure 91 mm[Hg] Dr. Neela Soni Work Phone: [facility] 07-30-2023 11:42-0500 Systolic blood pressure 146 mm[Hg] Dr. Neela Soni Work Phone: [facility] 06-27-2023 14:57-0400 Body mass index (BMI) [Ratio] 40.6 kg/m2 Dr. Neela Soni Work Phone: [facility] 06-27-2023 14:57-0400 Body temperature 97.8 [degF] Dr. Neela Soni Work Phone: [facility] 06-27-2023 14:57-0400 Body weight 110.[address] Neela Soni Work Phone: [facility] 06-27-2023 14:57-0400 Diastolic blood pressure 83 mm[Hg] Dr. Neela Soni Work Phone: [facility] 06-27-2023 14:57-0400 Heart rate 80 /min Dr. Neela Soni Work Phone: [facility] 06-27-2023 14:57-0400 Respiratory rate 17 /min Dr. Neela Soni Work Phone: [facility] 06-27-2023 14:57-0400 SaO2% (BldA) [Mass fraction] 100 % Dr. Neela Soni Work Phone: [facility] 06-27-2023 14:57-0400 Systolic blood pressure 132 mm[Hg] Dr. Neela Soni Work Phone: [facility] 05-14-2023 13:09-0400 Body height 165.[address] Neela Soni Work Phone: [facility] 05-14-2023 13:09-0400 Body mass index (BMI) [Ratio] 40.8 kg/m2 Dr. Neela Soni Work Phone: [facility] 05-14-2023 13:09-0400 Body temperature 96.8 [degF] Dr. Neela Soni Work Phone: [facility] 05-14-2023 13:09-0400 Body weight 111.[address] Neela Soni Work Phone: [facility] 05-14-2023 13:09-0400 Diastolic blood pressure 76 mm[Hg] Dr. Neela Soni Work Phone: [facility] 05-14-2023 13:09-0400 Heart rate 96 /min Dr. Neela Soni Work Phone: [facility] 05-14-2023 13:09-0400 Respiratory rate 18 /min Dr. Neela Soni Work Phone: [facility] 05-14-2023 13:09-0400 SaO2% (BldA) [Mass fraction] 98 % Dr. Neela Soni Work Phone: [facility] 05-14-2023 13:09-0400 Systolic blood pressure 128 mm[Hg] Dr. Neela Soni Work Phone: [facility] 05-03-2023 16:00-0400 Diastolic blood pressure 94 mm[Hg] Dr. Neela Soni Work Phone: [facility] 05-03-2023 16:00-0400 Systolic blood pressure 149 mm[Hg] Dr. Neela Soni Work Phone: [facility] 05-03-2023 13:40-0400 Body height 165.[address] Neela Soni Work Phone: [facility] 05-03-2023 13:40-0400 Body mass index (BMI) [Ratio] 40.3 kg/m2 Dr. Neela Soni Work Phone: [facility] 05-03-2023 13:40-0400 Body temperature 98.5 [degF] Dr. Neela Soni Work Phone: [facility] 05-03-2023 13:40-0400 Body weight 109.[address] Neela Soni Work Phone: [facility] 05-03-2023 13:40-0400 Heart rate 98 /min Dr. Neela Soni Work Phone: [facility] 05-03-2023 13:40-0400 Respiratory rate 16 /min Dr. Neela Soni Work Phone: [facility] 05-03-2023 13:40-0400 SaO2% (BldA) [Mass fraction] 98 % Dr. Neela Soni Work Phone: [facility] 04-30-2023 16:56-0400 Body height 165.[address] Neela Soni Work Phone: [facility] 04-30-2023 16:56-0400 Body mass index (BMI) [Ratio] 40.7 kg/m2 Dr. Neela Soni Work Phone: [facility] 04-30-2023 16:56-0400 Body temperature 98.8 [degF] Dr. Neela Soni Work Phone: [facility] 04-30-2023 16:56-0400 Body weight 111.[address] Neela Soni Work Phone: [facility] 04-30-2023 16:56-0400 Diastolic blood pressure 86 mm[Hg] Dr. Neela Soni Work Phone: [facility] 04-30-2023 16:56-0400 Heart rate 78 /min Dr. Neela Soni Work Phone: [facility] 04-30-2023 16:56-0400 Respiratory rate 16 /min Dr. Neela Soni Work Phone: [facility] 04-30-2023 16:56-0400 SaO2% (BldA) [Mass fraction] 98 % Dr. Neela Soni Work Phone: [facility] 04-30-2023 16:56-0400 Systolic blood pressure 128 mm[Hg] Dr. Neela Soni Work Phone: [facility] 04-26-2023 14:27-0400 Body mass index (BMI) [Ratio] 40.8 kg/m2 Dr. Neela Soni Work Phone: [facility] 04-26-2023 14:27-0400 Body weight 111.[address] Neela Soni Work Phone: [facility] 04-26-2023 14:27-0400 Diastolic blood pressure 85 mm[Hg] Dr. Neela Soni Work Phone: [facility] 04-26-2023 14:27-0400 Systolic blood pressure 131 mm[Hg] Dr. Neela Soni Work Phone: [facility] 03-30-2023 08:34-0400 Body mass index (BMI) [Ratio] 40.8 kg/m2 Dr. Neela Soni Work Phone: [facility] 03-30-2023 08:34-0400 Body temperature 98.7 [degF] Dr. Neela Soni Work Phone: [facility] 03-30-2023 08:34-0400 Body weight 111.[address] Neela Soni Work Phone: [facility] 03-30-2023 08:34-0400 Diastolic blood pressure 76 mm[Hg] Dr. Neela Soni Work Phone: [facility] 03-30-2023 08:34-0400 Heart rate 68 /min Dr. Neela Soni Work Phone: [facility] 03-30-2023 08:34-0400 Respiratory rate 16 /min Dr. Neela Soni Work Phone: [facility] 03-30-2023 08:34-0400 SaO2% (BldA) [Mass fraction] 99 % Dr. Neela Soni Work Phone: [facility] 03-30-2023 08:34-0400 Systolic blood pressure 124 mm[Hg] Dr. Neela Soni Work Phone: [facility] 11-17-2022 08:38-0500 Body height 165.[address] Neela Soni Work Phone: [facility] 11-17-2022 08:38-0500 Body mass index (BMI) [Ratio] 40.7 kg/m2 Dr. Neela Soni Work Phone: [facility] 11-17-2022 08:38-0500 Body temperature 98 [degF] Dr. Neela Soni Work Phone: [facility] 11-17-2022 08:38-0500 Body weight 111.[address] Neela Soni Work Phone: [facility] 11-17-2022 08:38-0500 Diastolic blood pressure 70 mm[Hg] Dr. Neela Soni Work Phone: [facility] 11-17-2022 08:38-0500 Heart rate 65 /min Dr. Neela Soni Work Phone: [facility] 11-17-2022 08:38-0500 Respiratory rate 16 /min Dr. Neela Soni Work Phone: [facility] 11-17-2022 08:38-0500 SaO2% (BldA) [Mass fraction] 99 % Dr. Neela Soni Work Phone: [facility] 11-17-2022 08:38-0500 Systolic blood pressure 118 mm[Hg] Dr. Neela Soni Work Phone: [facility] 11-06-2022 09:29-0500 Body mass index (BMI) [Ratio] 40.9 kg/m2 Dr. Neela Soni Work Phone: [facility] 11-06-2022 09:29-0500 Body temperature 98 [degF] Dr. Neela Soni Work Phone: [facility] 11-06-2022 09:29-0500 Body weight 111.[address] Neela Soni Work Phone: [facility] 11-06-2022 09:29-0500 Diastolic blood pressure 84 mm[Hg] Dr. Neela Soni Work Phone: [facility] 11-06-2022 09:29-0500 Heart rate 92 /min Dr. Neela Soni Work Phone: [facility] 11-06-2022 09:29-0500 Respiratory rate 14 /min Dr. Neela Soni Work Phone: [facility] 11-06-2022 09:29-0500 SaO2% (BldA) [Mass fraction] 95 % Dr. Neela Soni Work Phone: [facility] 11-06-2022 09:29-0500 Systolic blood pressure 122 mm[Hg] Dr. Neela Soni Work Phone: [facility] 11-04-2022 08:39-0500 Body temperature 98.4 [degF] Dr. Neela Soni Work Phone: [facility] 11-04-2022 08:39-0500 Diastolic blood pressure 68 mm[Hg] Dr. Neela Soni Work Phone: [facility] 11-04-2022 08:39-0500 Heart rate 94 /min Dr. Neela Soni Work Phone: [facility] 11-04-2022 08:39-0500 Respiratory rate 16 /min Dr. Neela Soni Work Phone: [facility] 11-04-2022 08:39-0500 SaO2% (BldA) [Mass fraction] 98 % Dr. Neela Soni Work Phone: [facility] 11-04-2022 08:39-0500 Systolic blood pressure 110 mm[Hg] Dr. Neela Soni Work Phone: [facility] 08-14-2022 09:10-0500 Body mass index (BMI) [Ratio] 40.9 kg/m2 Dr. Neela Soni Work Phone: [facility] 08-14-2022 09:10-0500 Body temperature 96.6 [degF] Dr. Neela Soni Work Phone: [facility] 08-14-2022 09:10-0500 Body weight 111.[address] Neela Soni Work Phone: [facility] 08-14-2022 09:10-0500 Diastolic blood pressure 86 mm[Hg] Dr. Neela Soni Work Phone: [facility] 08-14-2022 09:10-0500 Heart rate 77 /min Dr. Neela Soni Work Phone: [facility] 08-14-2022 09:10-0500 Respiratory rate 16 /min Dr. Neela Soni Work Phone: [facility] 08-14-2022 09:10-0500 SaO2% (BldA) [Mass fraction] 98 % Dr. Neela Soni Work Phone: [facility] 08-14-2022 09:10-0500 Systolic blood pressure 130 mm[Hg] Dr. Neela Soni Work Phone: [facility] 06-13-2022 11:08-0400 Body height 165.[address] Neela Soni Work Phone: [facility] Work Phone: 06-13-2022 11:08-0400 Body mass index (BMI) [Ratio] 39.9 kg/m2 Dr. Neela Soni Work Phone: [facility] Work Phone: 06-13-2022 11:08-0400 Body temperature 98.5 [degF] Dr. Neela Soni Work Phone: [facility] Work Phone: 06-13-2022 11:08-0400 Body weight 108.[address] Neela Soni Work Phone: [facility] Work Phone: 06-13-2022 11:08-0400 Diastolic blood pressure 90 mm[Hg] Dr. Neela Soni Work Phone: [facility] Work Phone: 06-13-2022 11:08-0400 Heart rate 77 /min Dr. Neela Soni Work Phone: [facility] Work Phone: 06-13-2022 11:08-0400 Respiratory rate 16 /min Dr. Neela Soni Work Phone: [facility] Work Phone: 06-13-2022 11:08-0400 SaO2% (BldA) [Mass fraction] 98 % Dr. Neela Soni Work Phone: [facility] Work Phone: 06-13-2022 11:08-0400 Systolic blood pressure 120 mm[Hg] Dr. Neela Soni Work Phone: [facility] Work Phone: 06-11-2022 10:55-0400 Diastolic blood pressure 74 mm[Hg] Dr. Neela Soni Work Phone: [facility] Work Phone: 06-11-2022 10:55-0400 Systolic blood pressure 158 mm[Hg] Dr. Neela Soni Work Phone: [facility] Work Phone: 06-11-2022 10:35-0400 Body temperature 98.7 [degF] Dr. Neela Soni Work Phone: [facility] Work Phone: 06-11-2022 10:35-0400 Heart rate 107 /min Dr. Neela Soni Work Phone: [facility] Work Phone: 06-11-2022 10:35-0400 Respiratory rate 14 /min Dr. Neela Soni Work Phone: [facility] Work Phone: 06-11-2022 10:35-0400 SaO2% (BldA) [Mass fraction] 98 % Dr. Neela Soni Work Phone: [facility] Work Phone: 06-08-2022 11:06-0400 Body mass index (BMI) [Ratio] 39.9 kg/m2 Dr. Neela Soni Work Phone: [facility] Work Phone: 06-08-2022 11:06-0400 Body temperature 97.7 [degF] Dr. Neela Soni Work Phone: [facility] Work Phone: 06-08-2022 11:06-0400 Body weight 108.[address] Neela Soni Work Phone: [facility] Work Phone: 06-08-2022 11:06-0400 Diastolic blood pressure 80 mm[Hg] Dr. Neela Soni Work Phone: [facility] Work Phone: 06-08-2022 11:06-0400 Heart rate 88 /min Dr. Neela Soni Work Phone: [facility] Work Phone: 06-08-2022 11:06-0400 Respiratory rate 16 /min Dr. Neela Soni Work Phone: [facility] Work Phone: 06-08-2022 11:06-0400 SaO2% (BldA) [Mass fraction] 99 % Dr. Neela Soni Work Phone: [facility] Work Phone: 06-08-2022 11:06-0400 Systolic blood pressure 122 mm[Hg] Dr. Neela Soni Work Phone: [facility] Work Phone: 04-25-2022 13:34-0400 Body mass index (BMI) [Ratio] 40 kg/m2 Dr. Neela Soni Work Phone: [facility] Work Phone: 04-25-2022 13:34-0400 Body weight 109.[address] Neela Soni Work Phone: [facility] Work Phone: 04-25-2022 13:34-0400 Diastolic blood pressure 82 mm[Hg] Dr. Neela Soni Work Phone: [facility] Work Phone: 04-25-2022 13:34-0400 Systolic blood pressure 128 mm[Hg] Dr. Neela Soni Work Phone: [facility] Work Phone: 04-11-2022 08:46-0400 Body mass index (BMI) [Ratio] 39.4 kg/m2 Dr. Neela Soni Work Phone: [facility] Work Phone: 04-11-2022 08:46-0400 Body temperature 97.9 [degF] Dr. Neela Soni Work Phone: [facility] Work Phone: 04-11-2022 08:46-0400 Body weight 107.[address] Neela Soni Work Phone: [facility] Work Phone: 04-11-2022 08:46-0400 Diastolic blood pressure 70 mm[Hg] Dr. Neela Soni Work Phone: [facility] Work Phone: 04-11-2022 08:46-0400 Heart rate 66 /min Dr. Neela Soni Work Phone: [facility] Work Phone: 04-11-2022 08:46-0400 Respiratory rate 14 /min Dr. Neela Soni Work Phone: [facility] Work Phone: 04-11-2022 08:46-0400 SaO2% (BldA) [Mass fraction] 99 % Dr. Neela Soni Work Phone: [facility] Work Phone: 04-11-2022 08:46-0400 Systolic blood pressure 108 mm[Hg] Dr. Neela Soni Work Phone: [facility] Work Phone: 03-21-2022 10:14-0400 Body mass index (BMI) [Ratio] 39.3 kg/m2 Dr. Neela Soni Work Phone: [facility] Work Phone: 03-21-2022 10:14-0400 Body temperature 97.7 [degF] Dr. Neela Soni Work Phone: [facility] Work Phone: 03-21-2022 10:14-0400 Body weight 107.[address] Neela Soni Work Phone: [facility] Work Phone: 03-21-2022 10:14-0400 Diastolic blood pressure 60 mm[Hg] Dr. Neela Soni Work Phone: [facility] Work Phone: 03-21-2022 10:14-0400 Heart rate 88 /min Dr. Neela Soni Work Phone: [facility] Work Phone: 03-21-2022 10:14-0400 Respiratory rate 18 /min Dr. Neela Soni Work Phone: [facility] Work Phone: 03-21-2022 10:14-0400 SaO2% (BldA) [Mass fraction] 97 % Dr. Neela Soni Work Phone: [facility] Work Phone: 03-21-2022 10:14-0400 Systolic blood pressure 110 mm[Hg] Dr. Neela Soni Work Phone: [facility] Work Phone: 01-02-2022 14:39-0400 Body height 165.[address] Neela Soni Work Phone: [facility] Work Phone: 01-02-2022 14:39-0400 Body mass index (BMI) [Ratio] 38.6 kg/m2 Dr. Neela Soni Work Phone: [facility] Work Phone: 01-02-2022 14:39-0400 Body temperature 98.9 [degF] Dr. Neela Soni Work Phone: [facility] Work Phone: 01-02-2022 14:39-0400 Body weight 105.[address] Neela Soni Work Phone: [facility] Work Phone: 01-02-2022 14:39-0400 Diastolic blood pressure 82 mm[Hg] Dr. Neela Soni Work Phone: [facility] Work Phone: 01-02-2022 14:39-0400 Heart rate 82 /min Dr. Neela Soni Work Phone: [facility] Work Phone: 01-02-2022 14:39-0400 Respiratory rate 14 /min Dr. Neela Soni Work Phone: [facility] Work Phone: 01-02-2022 14:39-0400 SaO2% (BldA) [Mass fraction] 98 % Dr. Neela Soni Work Phone: [facility] Work Phone: 01-02-2022 14:39-0400 Systolic blood pressure 120 mm[Hg] Dr. Neela Soni Work Phone: [facility] Work Phone: 10-03-2021 13:39-0500 Body mass index (BMI) [Ratio] 38.2 kg/m2 Dr. Neela Soni Work Phone: [facility] Work Phone: 10-03-2021 13:39-0500 Body temperature 97.8 [degF] Dr. Neela Soni Work Phone: [facility] Work Phone: 10-03-2021 13:39-0500 Body weight 104.[address] Neela Soni Work Phone: [facility] Work Phone: 10-03-2021 13:39-0500 Diastolic blood pressure 72 mm[Hg] Dr. Neela Soni Work Phone: [facility] Work Phone: 10-03-2021 13:39-0500 Heart rate 87 /min Dr. Neela Soni Work Phone: [facility] Work Phone: 10-03-2021 13:39-0500 Respiratory rate 18 /min Dr. Neela Soni Work Phone: [facility] Work Phone: 10-03-2021 13:39-0500 SaO2% (BldA) [Mass fraction] 99 % Dr. Neela Soni Work Phone: [facility] Work Phone: 10-03-2021 13:39-0500 Systolic blood pressure 124 mm[Hg] Dr. Neela Soni Work Phone: [facility] Work Phone: Encounters Encounter Date Encounter Type Care Provider Facility Start: 06-01-2025 End: 06-01-2025 Patient encounter procedure Deidre Mcdaniels INSTRUCTOR OF EDUCATION-C -[facility] Work Phone: Start: 06-01-2025 End: 06-01-2025 ambulatory Deidre Mcdaniels INSTRUCTOR OF EDUCATION Facility[place] Start: 05-15-2025 End: 05-15-[address] Neela Soni MD -[facility] Work Phone: Start: 05-15-2025 End: 05-15-[address] Neela Soni MD Work Phone: -[facility] Start: 05-11-2025 End: 05-11-[address] Neela Soni MD Work Phone: -Laboratory Specimen Start: 05-11-2025 End: 05-11-[address] Randa Rajput DO -Laboratory Specimen Work Phone: Start: 05-11-2025 End: 05-11-[address] Randa Rajput DO -[facility] Work Phone: Start: 05-11-2025 End: 05-11-[address] Neela Soni MD Work Phone: -[facility] Start: 05-11-2025 End: 05-11-2025 ambulatory Neela Soni Facility:[facility] Start: 12-27-2024 Encounter for genera l adult medical examination without abnormal findings Neela Soni [facility] Start: 12-24-2024 End: 12-24-[address] Neela Soni MD -[facility] Work Phone: Start: 12-24-2024 End: 12-24-[address] Neela Soni MD [facility] Start: 12-24-2024 End: 12-24-[address] Neela Soni MD Work Phone: [facility] Work Phone: Start: 12-24-2024 End: 12-24-2024 ambulatory [facility] Facility:[facility] Start: 10-13-2024 End: 10-13-[address] Randa Rajput DO -Outpatient Breast Imaging Work Phone: Start: 10-13-2024 End: 10-13-2024 ambulatory Randa Rajput Facility:[facility] Start: 10-10-2024 End: 10-10-[address] Neela Soni MD -Cat Scan, [facility] Work Phone: Start: 10-10-2024 End: 10-10-2024 [facility] Start: 09-22-2024 End: 09-22-[address] Neela Soni MD -[facility] Work Phone: Start: 09-22-2024 End: 09-22-2024 [facility] Start: 09-22-2024 End: 09-22-2024 ambulatory [facility] Facility:[facility] Start: 09-01-2024 End: 09-01-2024 Patient encounter procedure Lencho Silverio [facility] Work Phone: Start: 09-01-2024 End: 09-01-2024 ambulatory [facility] Facility:[facility] Start: 08-25-2024 End: 08-25-2024 [facility] Start: 06-17-2024 End: 06-17-2024 ambulatory [facility] Facility:[facility] Start: 01-30-2024 End: 01-30-[address] Neela Soni Work Phone: [facility] Work Phone: Start: 01-30-2024 End: 01-30-[address] Neela Soni Work Phone: [facility], [facility] Work Phone: Start: 12-26-2023 End: 12-26-[address] Neela Soni Work Phone: [facility] Internal Medicine Work Phone: Start: 12-24-2023 End: 12-24-[address] Neela Soni Work Phone: [facility] Work Phone: Start: 12-24-2023 End: 12-24-[address] Neela Soni Work Phone: [facility] Work Phone: Start: 10-18-2023 End: 10-18-[address] Neela Soni Work Phone: [facility] Internal Medicine Work Phone: Start: 10-09-2023 End: 10-09-[address] Neela Soni Work Phone: [facility] Work Phone: Start: 10-09-2023 End: 10-09-[address] Neela Soni Work Phone: [facility]-Outpatient Breast Imaging Work Phone: Start: 09-28-2023 End: 09-28-[address] Neela Soni Work Phone: [facility] Work Phone: Start: 09-28-2023 End: 09-28-[address] Neela Soni Work Phone: [facility] Internal Medicine Work Phone: Start: 08-24-2023 End: 08-24-[address] Neela Soni Work Phone: [facility] Internal Medicine Work Phone: Start: 08-17-2023 End: 08-17-[address] Neela Soni Work Phone: [facility] Work Phone: Start: 07-30-2023 End: 07-30-[address] Neela Soni Work Phone: [facility] Work Phone: Start: 07-26-2023 End: 07-26-[address] Neela Soni Work Phone: [facility] Work Phone: Start: 07-26-2023 End: 07-26-[address] Neela Soni Work Phone: [facility] Work Phone: Start: 06-27-2023 End: 06-27-[address] Neela Soni Work Phone: [facility] Work Phone: Start: 06-11-2023 End: 06-11-[address] Neela Soni Work Phone: [facility] Work Phone: Start: 06-11-2023 End: 06-11-[address] Neela Soni Work Phone: [facility]-Nuclear Medicine, [facility] Work Phone: Start: 05-19-2023 End: 05-19-[address] Neela Soni Work Phone: [facility] Work Phone: Start: 05-19-2023 End: 05-19-[address] Neela Soni Work Phone: [facility]-Ultrasound, [facility] Work Phone: Start: 05-14-2023 End: 05-14-[address] Neela Soni Work Phone: [facility] Internal Medicine Work Phone: Start: 05-03-2023 End: 05-03-2023 Emergency department patient visit Dr. Neela Soni Work Phone: [facility]-Emergency Department Work Phone: Start: 04-30-2023 End: 04-30-[address] Neela Soni Work Phone: [facility] Work Phone: Start: 04-26-2023 End: 04-26-[address] Neela Soni Work Phone: [facility] Work Phone: Start: 04-26-2023 End: 04-26-[address] Neela Soni Work Phone: [facility]-Laboratory, Specimen Work Phone: Start: 04-26-2023 End: 04-26-[address] Neela Soni Work Phone: [facility]'s [facility] Work Phone: Start: 03-30-2023 End: 03-30-[address] Neela Soni Work Phone: [facility] Internal Medicine Work Phone: Start: 11-17-2022 End: 11-17-[address] Neela Soni Work Phone: [facility] Work Phone: Start: 11-17-2022 End: 11-17-2022 Encounter for general adult medical examination without abnormal findings Dr. Neela Soni Work Phone: [facility] Start: 11-17-2022 End: 11-17-[address] Neela Soni Work Phone: [facility] Start: 11-13-2022 End: 11-13-[address] Neela Soni Work Phone: [facility] Work Phone: Start: 11-13-2022 End: 11-13-[address] Neela Soni Work Phone: [facility] Start: 11-06-2022 End: 11-06-[address] Neela Soni Work Phone: [facility] Start: 11-04-2022 End: 11-04-[address] Neela Soni Work Phone: [facility] Start: 08-14-2022 End: 08-14-[address] Neela Soni Work Phone: [facility] Start: 08-09-2022 End: 08-09-[address] Neela Soni Work Phone: [facility] Start: 07-05-2022 End: 07-05-[address] Neela Soni Work Phone: [facility] Work Phone: Start: 07-05-2022 End: 07-05-[address] Neela Soni Work Phone: [facility]-Outpatient Breast Imaging Start: 06-13-2022 End: 06-13-[address] Neela Soni Work Phone: [facility] Work Phone: Start: 06-13-2022 End: 06-13-[address] Neela Soni Work Phone: [facility]-Laboratory, Specimen Start: 06-13-2022 End: 06-13-[address] Neela Soni Work Phone: [facility] Start: 06-11-2022 End: 06-11-[address] Neela Soni Work Phone: [facility] Start: 06-08-2022 End: 06-08-[address] Neela Soni Work Phone: [facility] Start: 04-25-2022 End: 04-25-[address] Neela Soni Work Phone: [facility] Start: 04-11-2022 End: 04-11-[address] Neela Soni Work Phone: [facility] Start: 03-21-2022 End: 03-21-[address] Neela Soni Work Phone: [facility] Start: 01-02-[address] Neela Soni Work Phone: [facility] Start: 01-02-2022 End: 01-02-2022 Encounter for general adult medical examination without abnormal findings Dr. Neela Soni Work Phone: [facility] Start: 01-02-2022 End: 01-02-[address] Neela Soni Work Phone: [facility]-Laboratory, [facility] Start: 12-12-2021 ambulatory SELF SELF Facility:[facility] Start: 12-05-2021 End: 12-05-[address] Neela Soni Work Phone: [facility]-Physical Therapy Start: 11-04-2021 ambulatory FIORELLA YU Facility:[facility] Start: 10-03-2021 End: 10-03-[address] Neela Soni Work Phone: [facility]-Laboratory, [facility] Procedures Date Procedure Procedure Detail Performing Clinician Start: 05-11-2025 Liquid based cervica l cytology screening Dr. Neela Soni MD Work Phone: Comment on above: NEGATIVE FOR INTRAEP ITHELIAL LESION OR MALIGNANCY.THIS SPECIMEN WAS RESCREENED PART OF OUR BUSINESS OPERATIONS SPECIALIST PROGRAM. This liquid based Th inPrep(R) pap test was screened withthe use of an image guided system. Start: 10-13-2024 Screening mammography Kirsty Soni MD Work Phone: Start: 10-10-2024 CT of abdomen and pe lvis without contrast Dr. Neela Soni MD Work Phone: Start: 09-22-[address] Aj Soni MD Work Phone: Start: 01-30-[address] Claire Soni Work Phone: Start: 10-09-2023 Screening mammography Kirsty Soni Work Phone: Start: 07-26-[address] Claire Soni Work Phone: Start: 07-26-[address] Neela Soni Work Phone: Start: 06-11-2023 Radionuclide imaging of liver and/or biliary tract using radioactive isotope Dr. Neela Soni Work Phone: Start: 05-19-[address] Neela Soni Work Phone: Start: 05-03-2023 CT of abdomen and pe lvis without contrast Dr. Neela Soni Work Phone: Start: 07-05-2022 Screening mammography D kylie Soni Work Phone: Respiratory Panel (PCR) Dr. Neela Soni Work Phone: Plan of Treatment Date Care Activity Detail Author Start: 10-14-2025 MG Breast - bilateral Screening [facility] Start: 05-11-2025 Liquid based cervica l cytology screening [facility] Start: 09-28-2023 Patient referral [facility] Work Phone: Start: 04-26-2023 Liquid based cervica l cytology screening [facility] Blood chemistry [facility] Work Phone: Cytology report of C ervical or vaginal smear or scraping Cyto stain.thin prep [facility] MG Breast - bilateral Screening [facility] Work Phone: MG Breast - bilateral Screening [facility] Path report.final Dx Spec [facility] Path report.final Dx Spec [facility] Patient Education [facility] Work Phone: Patient referral [facility] Work Phone: [facility] Payers Date Payer Category Payer Self-pay [id number] 2019 Private Health Insurance [id number] 2016 Unknown [id number] 1984 Unknown [id number] 2.16. [id number] 1984 Unknown [id number] 2.16. [id number] 1984 Unknown [id number] 2.16. [id number] Unknown [id number] 2.16.8 [id number] Unknown [id number] 2.16.8 [id number] Unknown [id number] 2.16.8 [id number] Unknown [id number] 2.16.8 [id number] Unknown [id number] 2.16.8 [id number] Unknown [id number] 2.16.8 [id number] Unknown [id number] 2.16.8 [id number] Unknown [id number] 2.16.8 [id number] Unknown [id number] 2.16.8 [id number] Unknown [id number] 2.16.8 [id number] Unknown [id number] 2.16.8 [id number] Unknown [id number] 2.16.8 [id number] Unknown [id number] 2.16.8 [id number] Social History Date Type Detail Facility Start: 01-02-2022 End: 12-26-2023 Tobacco smoking status AZIS Unknown if ever smoked [facility] Start: 03-31-2019 None [facility] Start: 03-30-2019 Spouse/ Signif icant Other [facility] Start: 05-21-2021 Non-smoker [facility] Start: 1985 Sex Assigned At Female [facility] Start: 12-26-2023 End: 05-11-2025 Tobacco smoking status NHIS Never smoked tobacco (finding) [facility] Start: 12-27-2024 Sex Female (finding) [facility] NEGATED: Highlighted row [facility] Clinical Notes 12-08-2020 to 05-11-2025 Note Date & Type Note Facility 05-11-2025 Evaluation note Diagnosis Onset Date Resolution Fibroid uterus acute April 2:49pm Menorrhagia acute May 11, 2025 2:49pm Well woman exam acute May 112024 2:49pm [facility] Work Phone: 1(217) 696-596808-18-2025 Evaluation note* Diagnosis Onset Date Resolution Status Admit Date Fibroid uterus acute April 2:49pm Menorrhagia acute May 11, 2025 2:49pm Well woman exam acute May 112024 2:49pm Hyperlipidemia chronic April 8:03am Hypertension chronic May 15, 2025 8:03am Obesity chronic May 15, 2 025 8:03am Sinusitis chronic May 15, 2 025 8:03am [facility] Work Phone: 1(463) 872-189112-30-2024 Evaluation note* Diagnosis Onset Date Resolution Status Admit Date Urinary urgency acute September 22, 2024 1:03pm RUQ abdominal pain chronic [facility] er 2023 1:03pm Abdominal pain resolved August 262023 1:03pm Preventative health care acute December 24, 2024 8:30am Hyperlipidemia chronic December 24, 2024 8:30am Hypertension chronic December 24, 2 025 8:30am Sinusitis chronic December 24 8:30am [facility] Work Phone: 1(347) 118-626608-03-2023 NotePap Smear Specimen AdequacyAugust 2022 4:37pmComment.Satisfactory for evaluation. Endocervical and/or squamous metaplasticcells (endocervical component)are present.[facility] A#[id number] Arms HospitalComment on above:Satisfactory for evaluation. Endocervical and/or squamous metaplasticcells (endocervical component)are present.04-26-2023 NotePap Smear Specimen AdequacyAugust 2022 4:37pmComment.Satisfactory for evaluation. Endocervical and/or squamous metaplasticcells (endocervical component)are present.[facility] A#[id number] Arms HospitalComment on above:Satisfactory for evaluation. Endocervical and/or squamous metaplasticcells (endocervical component)are present.04-26-2023 NotePap Smear Specimen AdequacyAugust 2022 4:37pmComment.Satisfactory for evaluation. Endocervical and/or squamous metaplasticcells (endocervical component)are present.[facility] A#[id number] Arms HospitalComment on above:Satisfactory for evaluation. Endocervical and/or squamous metaplasticcells (endocervical component)are present.04-26-2023 NotePap Smear Specimen AdequacyAugust 2022 3:37pmComment.Satisfactory for evaluation. Endocervical and/or squamous metaplasticcells (endocervical component)are present.[facility] A#[id number] Arms HospitalComment on above:Satisfactory for evaluation. Endocervical and/or squamous metaplasticcells (endocervical component)are present.09-13-2021 NotePatient Outreach (NIRU) DADA ANGULO ([id number]) 1985 F Date Time Provider Department 09/13/21 ABENA HILARIO During your visit today, we recorded the [...] future healthcare decisions with a power of data control clerk, living will, or advance directives? No. Please bring a copy to your next appointment or email to [email or web address] Referrals: N/A Message Sent to Practice: NO Navigation Signature: Abena Hilario Population Health Navigator September 13, 2021 10:30 AM Allergies As of Date: 09/13/2021 Noted Allergy Reaction CLINDAMYCIN 03/02/2006 TORADOL (KETOROLAC TROMETHAMINE) 07/11/2016 4 - Hives ZOFRAN (ONDANSETRON HCL (PF)) 07/11/2016 4 - Hives Date Reviewed: 12/16/2020 Reviewed by: Kait ([facility]) CYNTHIA Bear - Fully Assessed Reason for Visit: Population [...] 06/14/2020 Encounter Status:Closed by YANELIS POPULATION HEALTH NAVIGATOR, ABENA Landa on 09/13/21[facility]12-21-2021 NoteHNO ID: [id number] Author: Abena Gilliland Health Navigjennifer Service: ? Author Type: ? Type: Progress Notes Filed: 09/13/2021 10:31 AM Note Text: POPULATION HEALTH NAVIGATION OUTREACH Action/FYI I spoke [...] future healthcare decisions with a power of data control clerk, living will, or advance directives? No. Please bring a copy to your next appointment or email to Referrals: N/A Message Sent to Practice: NO Navigation Signature: Abena Hilario Population Health Navigator September 13, 2021 10:30 [facility]04-20-2021 NoteHNO ID: [id number] Author: Robyn Pavon III Service: ? Author Type: Physician Type: Progress Notes Filed: 01/11/2021 1:56 PM Note Text: called patient at 1340 SUBJECTIVE: This is a 35 year old female that is here today for --THIS APPT WAS A MISTAKE THE PATIENT WAS SEEN YESTERDAY BY GAYLA GREEN--NO CHARGE PAST MEDICAL HISTORY Diagnosis Date [...] Date) . OBJECTIVE: ASSESSMENT: PLAN: NO CHARGE Robyn Pavon III [facility]04-19-2021 NoteHNO ID: [id number] Author: Gayla Peres) Podlogar Service: ? Author Type: Nurse [...] time could treat as a sinus infection Gayla Podlogar, MEDICINE TECHNOLOGIST.PRODUCTION TEAM ADVISOR Prescription instructions reviewed with patient as applicable. Patient advised if symptoms do not improve or if symptoms worsen sooner, to contact their primary care physician. Potential red flag symptoms discussed with the patient. Reviewed appropriate action plan to take if red flag symptoms occur. Patient agreeable to treatment plan.[facility]03-25-2021 NoteHNO ID: [id number] Author: Robyn Pvaon III Service: ? Author Type: Physician Type: [...] (A) JOSE Pattern Unknown Atypical speckled ANAP BOBBY Reflex Bill Unknown Billed for services performed JOSE by EIA, Qual Latest Ref Range: Negative Positive (A) Positive (A) JOSE by EIA Latest Units: OD Ratio 1.0 1.0 DNA Antibody w/Confirmation Latest Ref Range: <30 IU/mL <12 REHAB NURSING TECH Antibody Latest Ref Range: <1.0 AI 1.4 (H) Ribosomal REHAB NURSING TECH Latest Ref Range: <1.0 AI <0.2 SSB [...] Ref Range: 1.00 - 4.00 k/uL 3.16 Harney% Latest Units: % 6.3 Abs Harney Latest Ref Range: <0.87 k/uL 0.72 Eosin% Latest Units: % 1.4 Abs Eosin Latest Ref Range: <0.46 k/uL 0.16 Baso% Latest Units: % 0.4 Abs Baso Latest Ref Range: <0.11 k/uL 0 (more content not included)...[facility]03-17-2021 NoteHNO ID: [id number] Author: Anaya Steiner MA Service: ? Author Type: ? Type: Progress Notes Filed: 12/08/2020 12:29 PM Note Text: Care Gap Reviewed: Controlling Blood Pressure Phone call placed to patient. Pt identified by name and : YES Outreach Outcome/Action: Spoke to patient or caregiver: Patient scheduled in Primary Care If patient deferred or declined to schedule appointment, please indicate the reason(s): Other Anaya Steiner [facility]03-17-2021 NotePatient Outreach (FAMPWS) ADELEDADA L ([id number]) 1985 F Date Time Provider Department 12/08/20 ANAYA STEINER MA During your visit today, we recorded the following information about you: Anaya Steiner MA 12/08/2020 12:29 PM Signed Care Gap Reviewed: Controlling Blood Pressure Phone call placed to patient. Pt identified by name and : YES Outreach Outcome/Action: Spoke to patient or caregiver: Patient scheduled in Primary Care If patient deferred or declined to schedule appointment, please indicate the reason(s): Other Anaya Steiner MA Allergies As of Date: 12/08/2020 Noted Allergy Reaction CLINDAMYCIN 03/02/2006 TORADOL (KETOROLAC TROMETHAMINE) 07/11/2016 4 - Hives ZOFRAN (ONDANSETRON HCL (PF)) 07/11/2016 4 - Hives Date Reviewed: 06/14/2020 Reviewed by: Kait ([facility]) CYNTHIA Bear - Fully Assessed Reason for [...] ALT measurement [R74.01] 06/14/2020 Encounter Status:Closed by ANAYA STEINER MA on 12/08/20[facility] Evaluation note* Diagnosis Onset Date Resolution Status Hyperlipidemia acute Hypertension chronic Low TSH level chronic Obesity chronic Preventative health care acu te [facility] Work Phone: evaluation note* Diagnosis Onset Date Resolution Status Rash and nonspecific skin eruption noneactive Dermatitis acute Hypertension chronic Obesity chronic Encounter for routine gynecological examination noneactive Earache on left acute Acute maxillary sinusitis no neactive Acute sinusitis acute Fluid level behind tympanic membrane of left ear acute Otalgia, left ear acute Acute maxillary sinusitis no neactive URI (upper respiratory infection) noneactive [facility] Work Phone: Evaluation note* Diagnosis Onset Date Resolution Status GERD (gastroesophageal reflux disease) chronic Hyperlipidemia chronic Hypertension chronic Obesity, Class III, BMI 40-49.9 (morbid obesity) chronic Sinusitis chronic Sinusitis chronic Chest congestion acute Cough acute Seasonal allergies acute Sinusitis chronic Preventative health care acu te [facility] Work Phone: evaluation note* Diagnosis Onset Date Resolution Status Dermatitis acute Hyperlipidemia chronic Hypertension chronic Obesity chronic Encounter for routine gynecological examination noneactive Acute sinusitis acute [facility] Work Phone: Evaluation note* Diagnosis Onset Date Resolution Status Dermatitis acute Hyperlipidemia chronic Hypertension chronic Obesity chronic Encounter for routine gynecological examination noneactive Acute sinusitis acute Change in bowel habit acute History of kidney stones acu te Ovarian cyst acute RUQ abdominal pain acute [facility] Work Phone: Evaluation note* Diagnosis Onset Date Resolution Status Encounter for routine gynecological examination noneactive Acute sinusitis acute Change in bowel habit acute History of kidney stones acu te Ovarian cyst acute RUQ abdominal pain acute Biliary dyskinesia acute History of kidney stones acu te Ovarian cyst acute [facility] Work Phone: Evaluation note* Diagnosis Onset Date Resolution Status Biliary dyskinesia acute History of kidney stones acu te Ovarian cyst acute Sinusitis chronic Allergies acute Conjunctivitis acute Sinusitis chronic Hyperlipidemia chronic Hypertension chronic Recurrent sinusitis chronic [facility] Work Phone: Evaluation note* Diagnosis Onset Date Resolution Status Hyperlipidemia chronic Hypertension chronic Recurrent sinusitis chronic Influenza B acute Otitis media, right acute Hyperlipidemia chronic Hypertension chronic Recurrent sinusitis chronic [facility] Work Phone: Evaluation note* Diagnosis Onset Date Resolution Status Influenza B acute Otitis media, right acute Hyperlipidemia chronic Hypertension chronic Recurrent sinusitis chronic [facility] Work Phone: Evaluation noteNo assessment information available [facility] Work Phone: Hospital Discharge instructions Additional Instructions Please follow-up with your PCP and return for any worsening of symptoms.[facility] Work Phone: Hospital Discharge instructionsAmbulatory Orders* Ears, Nose and Throat Location: None Selected [facility] Work Phone: Reason for referral (narrative)No reason for referral information availableSheltering Arms Hospital Work Phone: Summary Purpose Family History Relationship Condition Age at Onset Recorded Date/T althea father History of blood clots Unknown mother History of blood clots Unknown grandmother History of blood clots Unknown Malignant neoplasm of breast Unknown Malignant neoplasm Unknown grandfather Diabetes mellitus Unknown Hypertension Unknown Myocardial infarction 56 Advance Directives Advance Directive Response Recorded Date/ Time Living Will No February 11, 2021 1 :19pm Power of Classifier No February 11, 2021 1:19pm Advance Directive Response Recorded Date/ Time Living Will No November 04 023 8:39am Power of Classifier No November 04, 2022 8:39am Advance Directive Response Recorded Date/ Time Living Will No November 04 023 9:39am Power of Classifier No November 04, 2022 9:39am Advance Directive Response Recorded Date/ Time Living Will No May 03 3 2:23pm Power of Classifier No May 03 023 2:23pm Advance Directive Response Recorded Date/ Time Living Will No May 03 3 1:23pm Power of Classifier No May 03 2 023 1:23pm Advance Directive Response Recorded Date/ Time Living Will No August 17 2 023 8:20am Power of Classifier No August 17, 2023 8:20am Advance Directive Response Recorded Date/ Time Living Will No August 17, 2 023 9:20am Power of Classifier No August 17, 2023 9:20am Advance Directive Response Recorded Date/ Time Living Will No August 17 2 023 9:20am Do you have a Healthcare Power of Classifier? 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) sinus pressure/ear ache L EAR PAIN NOT GETTING ANY BETTER SINCE VISIT LAST WEEK Reason for Visit Rash and nonspecific skin eruption Dermatitis Hypertension Obesity Encounter for routine gynecological examination Earache on left Acute maxillary sinusitis Acute sinusitis Fluid level behind tympanic membrane of left ear Otalgia, left ear Acute maxillary sinusitis URI (upper respiratory infection) Chief Complaint ACUTE- Rash 3 M FU 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) sinus pressure/ear ache L EAR PAIN NOT GETTING ANY BETTER SINCE VISIT LAST WEEK SCREENING Reason for Visit Rash and nonspecific skin eruption Dermatitis Hypertension Obesity Encounter for routine gynecological examination Earache on left Acute maxillary sinusitis Acute sinusitis Fluid level behind tympanic membrane of left ear Otalgia, left ear Acute maxillary sinusitis URI (upper respiratory infection) Chief Complaint EORDER 4 m fu HEAD/SINUS CONGESTED, DRAINAGE fever/congestion E ORDER 3 M FU Reason for Visit GERD (gastroesophage al reflux disease) Hyperlipidemia Hypertension Obesity, Class III, BMI 40-49.9 (morbid obesity) Sinusitis Sinusitis Chest congestion Cough Seasonal allergies Sinusitis Preventative health care Hypertension Chief Complaint 4 M FU 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) PAP CONCERN FOR SINUS INFECTION Reason for Visit Dermatitis Hyperlipidemia Hypertension Obesity Encounter for routine gynecological examination Acute sinusitis Chief Complaint 4 M FU 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) PAP CONCERN FOR SINUS INFECTION abd pain Reason for Visit Dermatitis Hyperlipidemia Hypertension Obesity Encounter for routine gynecological examination Acute sinusitis Chief Complaint 4 M FU 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) PAP CONCERN FOR SINUS INFECTION abd pain WC FOLLOW UP R1011 Reason for Visit Dermatitis Hyperlipidemia Hypertension Obesity Encounter for routine gynecological examination Acute sinusitis Change in bowel habit History of kidney stones Ovarian cyst RUQ abdominal pain Chief Complaint 4 M FU 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) PAP CONCERN FOR SINUS INFECTION abd pain WC FOLLOW UP R1011 Right upper quadrant pain Reason for Visit Dermatitis Hyperlipidemia Hypertension Obesity Encounter for routine gynecological examination Acute sinusitis Change in bowel habit History of kidney stones Ovarian cyst RUQ abdominal pain Chief Complaint 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) PAP CONCERN FOR SINUS INFECTION abd pain [facility] FOLLOW UP R1011 Right upper quadrant pain ABNORMAL HIDA OVAIRAN CYST ER F/U, Ovarian Cysts Reason for Visit Encounter for routin e gynecological examination Acute sinusitis Change in bowel habit History of kidney stones Ovarian cyst RUQ abdominal pain Biliary dyskinesia History of kidney stones Ovarian cyst Chief Complaint Right upper quadrant pain ABNORMAL HIDA OVAIRAN CYST ER F/U, Ovarian Cysts SINUS CONGESTION, LEFT EAR PAIN, SORE THROAT SINUS INFECTION - POST NOW CLINIC 6 M FU Reason for Visit Biliary dyskinesia History of kidney stones Ovarian cyst Sinusitis Allergies Conjunctivitis Sinusitis Hyperlipidemia Hypertension Recurrent sinusitis Chief Complaint ABNORMAL HIDA OVAIRAN CYST ER F/U, Ovarian Cysts SINUS CONGESTION, LEFT EAR PAIN, SORE THROAT SINUS INFECTION - POST NOW CLINIC 6 M FU SCREENING Reason for Visit Biliary dyskinesia History of kidney stones Ovarian cyst Sinusitis Allergies Conjunctivitis Sinusitis Hyperlipidemia Hypertension Recurrent sinusitis Chief Complaint 6 M FU SCREENING BILATERAL EAR PAIN, FEVER EORDER 3 M FU Reason for Visit Hyperlipidemia Hypertension Recurrent sinusitis Influenza B Otitis media, right Hyperlipidemia Hypertension Recurrent sinusitis Chief Complaint SCREENING BILATERAL EAR PAIN, FEVER EORDER 3 M FU PELVIC AND PERINEAL PAIN Reason for Visit Influenza B Otitis media, right Hyperlipidemia Hypertension Recurrent sinusitis Chief Complaint Admit Date SINUS PRESSURE/CONGESTION/COUGH/BILAT EA R COMP/ST September 01, 2024 12:13pm abdominal pain ongoing September 22 1:03pm ABD PAIN URINARY FREQUENCY October 10, 2024 4:43pm SCREENING October 13, 2024 7 :11am 4 M FU December 24, 2024 8:30 am Reason for Visit Admit Date Urinary urgency September 22, 2024 1:03pm RUQ abdominal pain September 22, 2024 1:03pm Abdominal pain September 22, 2024 1:03pm Preventative health care December 24, 2024 8:30am Hyperlipidemia December 24, 2024 8:30 am Hypertension December 24, 2024 8:30 am Sinusitis December 24, 2024 8:30 am Chief Complaint Admit Date 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) May 11, 2025 2: 49pm Chief Complaint Admit Date 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) May 11, 2025 2: 49pm 4 M FU May 15, 2025 8: 03am EMB *per JV June 01, 2025 11:03am Reason for Visit Admit Date Fibroid uterus May 11, 2025 2: 49pm Menorrhagia May 11, 2025 2: 49pm Well woman exam May 11, 2025 2: 49pm Hyperlipidemia May 15, 2025 8: 03am Hypertension May 15, 2025 8: 03am Obesity May 15, 2025 8: 03am Sinusitis May 15, 2025 8: 03am Additional Source Comments INFORMATION SOURCE (unrecogn ized section and content) DATE CREATED AUTHOR 11/15/2021 [facility] DATE CREATED AUTHOR AUTHOR'S ORGANIZ ATION 03/01/2022 [facility] DATE CREATED AUTHOR AUTHOR'S ORGANIZ ATION 05/30/2025 [facility] Goals (unrecognized section and content) Goals may be documented in a n alternate sectionGoals may be documented in an alternate sectionGoals may be documented in an alternate sectionGoals may be documented in an alternate sectionGoals may be documented in an alternate sectionGoals may be documented in an alternate sectionGoals may be documented in an alternate sectionGoals may be documented in an alternate sectionGoals may be documented in an alternate sectionGoals may be documented in an alternate sectionGoals may be documented in an alternate sectionGoals may be documented in an alternate sectionGoals may be documented in an alternate sectionGoals may be documented in an alternate sectionGoals may be documented in an alternate sectionGoals may be documented in an alternate sectionGoals may be documented in an alternate sectionGoals may be documented in an alternate sectionGoals may be documented in an alternate section Care Teams (unrecognized sec tion and content) Team Status: Active Member Role Status Dates Dr. Robyn Pavon IIIMD Family Provider Active Dr. Neela Soni MD Primary Care Provider Active Team Status: Inactive Member Role Status Dates Dr. Neela Soni MD Primary Care Darline carter, Attending Provider, Referring Provider Active Team Status: Inactive Member Role Status Dates Dr. Neela Soni MD Primary Care Provider, Refer ring Provider Active Ever REDMAN, PA Attending Provider Active Team Status: Active Member Role Status Dates Dr. Neela Soni MD Primary Care P rovider, Attending Provider, Referring Provider Active Team Status: Inactive Member Role Status Dates Dr. Neela Soni MD Primary Care Provider, Refer ring Provider Active Dr. Randa Rajput DO Attending Provider Activ e Team Status: Inactive Member Role Status Dates Dr. eNela Soni MD Primary Care Provider, Refer ring Provider Active Lencho REDMAN PA Attending Provider Active Team Status: Inactive Member Role Status Dates Dr. Neela Soni MD Primary Care Provider Active Dr. Randa Rajput DO Attending Provider, Refe rring Provider Active Team Status: Inactive Member Role Status Dates Dr. Neela Soni MD Primary Care Provider Active Dr. Dayo Irving MD Emergency Provider Active Team Status: Inactive Member Role Status Dates Dr. Neela Soni MD Primary Care Provider Active Dr. Dayo Irving MD Attending Provider, Emergency Provi levi Active Team Status: Inactive Member Role Status Dates Dr. Neela Soni MD Primary Care Provider, Refer ring Provider Active Dr. Fausto Degroot MD Attending Provider Active Team Status: Inactive Member Role Status Dates Dr. Neela Soni MD Primary Care Provider, Refer ring Provider Active ЮЛИЯ Villavicencio Attending Provider Active Team Status: Inactive Member Role Status Dates Dr. Neela Soni MD Primary Care Provider, Refer ring Provider Active DAMIAN Tanner Attending Provider Active Team Status: Active Member Role Status Dates Dr. Neela Soni MD Primary Care Provider Active Team Status: Inactive Member Role Status Dates Dr. Neela Soni MD Primary Care Provider Active Start: September 01, 2024 End: September 01, 2024 Dr. Neela Soni MD Referring Provider Active Start: September 01, 2024 End: September 01, 2024 Lencho REDMAN, PA Attending Provider Active Start: September 01, 2024 End: September 01, 2024 Team Status: Inactive Member Role Status Dates Dr. Neela Soni MD Primary Care Provider Active Start: September 22, 2024 End: September 22, 2024 Dr. Neela Soni MD Attending Provider Active Start: September 22, 2024 End: September 22, 2024 Dr. Neela Soni MD Referring Provider Active Start: September 22, 2024 End: September 22, 2024 Team Status: Inactive Member Role Status Dates Dr. Neela Soni MD Primary Care Provider Active Start: October 10, 2024 End: October 10, 2024 Dr. Neela Soni MD Attending Provider Active Start: October 10, 2024 End: October 10, 2024 Dr. Neela Soni MD Referring Provider Active Start: October 10, 2024 End: October 10, 2024 Team Status: Inactive Member Role Status Dates Dr. Neela Soni MD Primary Care Provider Active Start: October 13, 2024 End: October 13, 2024 Dr. Randa Rajput DO Attending Provider Activ e Start: October 13, 2024 End: October 13, 2024 Dr. Randa Rajput DO Referring Provider Activ e Start: October 13, 2024 End: October 13, 2024 Team Status: Inactive Member Role Status Dates Dr. Neela Soni MD Primary Care Provider Active Start: December 24, 2024 End: December 24, 2024 Dr. Neela Soni MD Attending Provider Active Start: December 24, 2024 End: December 24, 2024 Dr. Neela Soni MD Referring Provider Active Start: December 24, 2024 End: December 24, 2024 Team Status: Active Member Role/Relationship Status Dates Dr. Neela Soni MD Primary Care Provider Active Team Status: Inactive Member Role/Relationship Status Dates Dr. Neela Soni MD Primary Care Provider Active Start: May 11, 2025 End: May 11, 2025 Dr. Neela Soni MD Referring Provider Active Start: May 11, 2025 End: May 11, 2025 Dr. Randa Rajput DO Attending Provider Activ e Start: May 11, 2025 End: May 11, 2025 Team Status: Inactive Member Role/Relationship Status Dates Dr. Neela Soni MD Primary Care Provider Active Start: May 11, 2025 End: May 11, 2025 Dr. Randa Rajput DO Attending Provider Activ e Start: May 11, 2025 End: May 11, 2025 Dr. Randa Rajput DO Referring Provider Activ e Start: May 11, 2025 End: May 11, 2025 Team Status: Inactive Member Role/Relationship Status Dates Dr. Neela Soni MD Primary Care Provider Active Start: May 15, 2025 End: May 15, 2025 Dr. Neela Soni MD Attending Provider Active Start: May 15, 2025 End: May 15, 2025 Dr. Neela Soni MD Referring Provider Active Start: May 15, 2025 End: May 15, 2025 Team Status: Inactive Member Role/Relationship Status Dates Dr. Neela Soni MD Primary Care Provider Active Start: June 01, 2025 End: June 01, 2025 Dr. Neela Soni MD Referring Provider Active Start: June 01, 2025 End: June 01, 2025 Deidre Mcdaniels NP, NP-C Attending Provider Active Start: June 01, 2025 End: June 01, 2025 Team Status: Active Member Role/Relationship Status Dates Dr. Neela Soni MD Primary Care Provider Active Start: June 01, 2025 Deidre Mcdaniels NP, NP-C Attending Provider Active Start: June 01, 2025 FOR RECORDS PERTAINING TO PATIENTS WHO ARE [...] BE BASED ON THE PRIMARY CLINICAL RECORDS. [email or web address] provides no warranty or guarantee of the accuracy or completeness of information in this document.
== END | disposition home or self-care (01) ==
LOC: LABSPEC 11:27
PROVIDERS: PCP Internal Medicine; Visit Provider Nurse Practitioner Women's Health
DX: N93.9 Abnormal uterine and vaginal bleeding, unspecified (principal); Z12.4 Encounter for screening for malignant neoplasm of cervix
CPT/HCPCS: 88305